=== PATIENT | female | born 1945 | race Caucasian/White ===

== ENCOUNTER 2022-09-22 13:33 | Outpatient (CLI) | payer MEDICARE, SELFPAY ==
[2022-09-22 19:17] LABS: Basophils Absolute Auto 0.1 K/mm3 (0.0-0.1); Basophils Percent Auto 0.8 % (0.2-1.2); Eosinophils Absolute Auto 0.2 K/mm3 (0-0.3); Eosinophils Percent Auto 2.7 % (0-4.4); Hematocrit 40.2 % (37.0-47.0); Immature Granulocyte Absolute 0.02 K/mm3 (0.00-0.031); Immature Granulocyte Percent A 0.2 % (0-0.5); Lymphocytes Absolute Auto 3.26 K/mm3 (0.9-3.2); Lymphocytes Percent Auto 38.9 % (18.3-44.2); Mean Corpuscular HGB Conc 32.3 g/dl (32-36); Mean Corpuscular Hemoglobin 30.4 pg (26-34); Mean Corpuscular Volume 94.1 fl (80-100); Mean Platelet Volume 10.6 fl (7.4-10.4); Monocytes Absolute Auto 0.4 K/mm3 (0.1-0.6); Monocytes Percent Auto 4.9 % (2.6-8.5); Neutrophils Absolute Auto 4.4 K/mm3 (1.3-6.7); Neutrophils Percent Auto 52.5 % (45.5-73.1); Platelet Count Result 255 k/mm3 (150-375); Red Blood Count 4.27 M/mm3 (4.2-5.4); Red Cell Distribution Width 12.5 % (11.5-14.5); White Blood Count 8.4 K/mm3 (4.5-10.0)
[2022-09-22 19:45] LABS: Alanine Aminotransferase 25 U/L (6-35); Albumin Level 4.2 g/dL (3.5-5.1); Alkaline Phosphatase 77 U/L (38-126); Anion Gap 5 mmol/L (8-16); Aspartate Amino Transferase 39 U/L (14-36); Bilirubin,Total 0.4 mg/dL (0.2-1.3); Blood Urea Nitrogen 17 mg/dL (7-17); Calcium 9.5 mg/dL (8.4-10.2); Carbon Dioxide 32 mmol/L (22-30); Chloride 98 mmol/L (98-107); Estimated Glomerular Filt Rate > 60; Glucose 280 mg/dL (65-110); Sodium 135 mmol/L (137-145)
[2022-09-22 20:18] LABS: Vitamin D 25 Hydroxy 27.7 ng/mL
[2022-09-22 22:21] LABS: Hemoglobin A1C 8.2 % (<5.7)
== END 2022-09-22 13:34 | disposition home or self-care (01) ==
LOC: ANHGOSHLAB 13:35
PROVIDERS: PCP Internal Medicine; Visit Provider Nurse Practitioner
DX: E07.9 Disorder of thyroid, unspecified (principal); E11.9 Type 2 diabetes mellitus without complications; E55.9 Vitamin D deficiency, unspecified; I10 Essential (primary) hypertension
CPT/HCPCS: 36415; 80053; 82306; 83036; 84443; 85025

== ENCOUNTER 2022-09-22 13:47 | Outpatient (CLI) | payer MEDICARE, SELFPAY ==
--- NOTE | ~2022-09-22 | XR_ITS ---
EXAMINATION: XR_CERV2-3V_CR DATE: 09/22/2022 14:14 INDICATION: Throat pain. TECHNIQUE: 3 views of cervical spine on 4 radiographs were obtained. COMPARISON: Neck CT 05/28/2018 FINDINGS: There is 2 mm retrolisthesis of C5 on C6. Vertebral body heights are normal. There is mildl y decreased disc height at C4-C5 and severely decreased disc height at C5-C6 and C6-C7. There is mult ilevel facet joint osteoarthritis, severe at many levels. There is mild central canal stenosis at C5- C6 and C6-C7. No prevertebral soft tissue swelling. IMPRESSION: 1. Severe cervical spondylosis. Reviewed, dictated and finalized at location A.
== END 2022-09-22 13:48 ==
PROVIDERS: PCP Internal Medicine; Visit Provider Nurse Practitioner
DX: R07.0 Pain in throat (principal); M47.892 Other spondylosis, cervical region
CPT/HCPCS: 72040

== ENCOUNTER 2022-09-30 11:41 | Outpatient (CLI) | payer MEDICARE, SELFPAY ==
[2022-09-30 12:19] LABS: Cholesterol 182 mg/dL (0-200); HDL Direct 45 mg/dL; Triglycerides 286 mg/dL (<150)
[2022-09-30 12:29] LABS: LDL Cholesterol Direct 83 mg/dL
== END 2022-09-30 11:42 | disposition home or self-care (01) ==
PROVIDERS: PCP Internal Medicine; Visit Provider Nurse Practitioner
DX: E07.9 Disorder of thyroid, unspecified (principal); E11.9 Type 2 diabetes mellitus without complications; E55.9 Vitamin D deficiency, unspecified; I10 Essential (primary) hypertension
CPT/HCPCS: 36415; 80061

== ENCOUNTER 2022-10-18 13:51 | Outpatient (CLI) | payer MEDICARE, SELFPAY ==
--- NOTE | ~2022-10-18 | MR_ITS ---
EXAMINATION: MR cervical spine wo con DATE: 10/18/2022 14:56 INDICATION: Neck pain. TECHNIQUE: Magnetic resonance imaging (MRI) of the cervical spine was performed without intravenous c ontrast. Sequences included sagittal T2-weighted FSE, sagittal T2-weighted FS FSE, sagittal T1-weight ed FSE, axial MERGE, and axial T2-weighted FSE. COMPARISON: None FINDINGS: There is 2 mm anterolisthesis of C4 on C5 and 2 mm retrolisthesis of C5 on C6 and C6 on C7. Vertebral body heights are normal. There is severely decreased disc height at C5-C6 and C6-C7. The s emi cord signal intensity is normal. The following disc levels are specifically discussed: C2-C3: The disc does not extend beyond the endplate margin. There is no uncovertebral joint osteoarth ritis. There is severe bilateral facet joint osteoarthritis. There is mild bilateral neural foraminal stenosis. There is no central canal stenosis. C3-C4: There is a central protrusion. There is severe bilateral uncovertebral joint osteoarthritis. T here is severe bilateral facet joint osteoarthritis. There is moderate bilateral neural foraminal juice nosis. There is no central canal stenosis. C4-C5: The disc does not extend beyond the endplate margin. There is moderate left uncovertebral join t osteoarthritis. There is severe bilateral facet joint osteoarthritis. There is mild left neural for aminal stenosis. There is no central canal stenosis. C5-C6: The disc is bulging. There is severe bilateral uncovertebral joint osteoarthritis. There is se cuco right and mild left facet joint osteoarthritis. There is moderate bilateral neural foraminal juice nosis. There is mild central canal stenosis. C6-C7: The disc is bulging. There is severe bilateral uncovertebral joint osteoarthritis. There is mo derate bilateral facet joint osteoarthritis. There is moderate bilateral neural foraminal stenosis. T here is mild central canal stenosis. C7-T1: The disc does not extend beyond the endplate margin. There is no uncovertebral joint osteoarth ritis. There is severe bilateral facet joint osteoarthritis. There is mild bilateral neural foraminal stenosis. There is no central canal stenosis. IMPRESSION: 1. Severe cervical spondylosis. Reviewed, dictated and finalized at location L.
--- NOTE | ~2022-10-18 | CT_ITS ---
EXAMINATION: CT soft tissue neck w con DATE: 10/18/2022 14:28 INDICATION: Sore throat. Hoarseness. TECHNIQUE: Computed tomography (CT) of the neck was performed with 75 mL Omnipaque-350 intravenous co ntrast. Automated exposure control and iterative reconstruction technique were employed. The dose-sky gth product was 666.62 mGy-cm. COMPARISON: Neck CT 05/28/18 FINDINGS: There are no pathologically enlarged lymph nodes. The pharynx and larynx are normal. There is no visible plaque in the proximal internal carotid arteries. There is 0% stenosis of the proximal internal carotid arteries relative to normal distal artery lumen diameters. There is severe cervical spondylosis. IMPRESSION: 1. No etiology for the patient's symptoms. Reviewed, dictated and finalized at location L.
== END 2022-10-18 13:52 | disposition home or self-care (01) ==
PROVIDERS: PCP Internal Medicine; Referring Provider Otolaryngology; Visit Provider Nurse Practitioner
DX: R13.10 Dysphagia, unspecified (principal); R07.0 Pain in throat; G89.29 Other chronic pain; M47.892 Other spondylosis, cervical region
CPT/HCPCS: 70491; 72141; Q9967

== ENCOUNTER 2022-11-11 12:33 | Outpatient (CLI) | payer MEDICARE, SELFPAY ==
--- NOTE | ~2022-11-11 | XR_ITS ---
XR knee RT 3V 11/11/2022 12:55 Indication: Right knee pain Procedure: 3 views right knee Comparison: No prior studies for comparison. Findings: There is mild-moderate tricompartment osteoarthritis of the right knee. No fracture, sublux ation or dislocation. No joint effusion. 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 Reviewed, dictated and finalized at location [] Impression: 1: Mild-moderate tricompartment osteoarthritis of the right knee.
== END 2022-11-11 12:34 | disposition home or self-care (01) ==
PROVIDERS: PCP Internal Medicine; Visit Provider Nurse Practitioner
DX: M17.11 Unilateral primary osteoarthritis, right knee (principal)
CPT/HCPCS: 73562

== ENCOUNTER 2023-03-01 11:36 | Outpatient (CLI) | payer MEDICARE, SELFPAY ==
[2023-03-01 12:24] LABS: Anion Gap 5 mmol/L (8-16); Blood Urea Nitrogen 16 mg/dL (7-17); Calcium 9.6 mg/dL (8.4-10.2); Carbon Dioxide 32 mmol/L (22-30); Chloride 98 mmol/L (98-107); Estimated Glomerular Filt Rate > 60; Glucose 182 mg/dL (65-110); Potassium 4.2 mmol/L (3.4-5.0); Sodium 135 mmol/L (137-145)
[2023-03-01 12:26] LABS: Hemoglobin A1C 8.6 % (<5.7)
== END 2023-03-01 11:37 | disposition home or self-care (01) ==
PROVIDERS: PCP Internal Medicine; Visit Provider Nurse Practitioner
DX: E11.9 Type 2 diabetes mellitus without complications (principal)
CPT/HCPCS: 36415; 80048; 83036

== ENCOUNTER 2023-10-06 09:57 | Outpatient (CLI) | payer MEDICARE, SELFPAY ==
--- NOTE | ~2023-10-06 | XR_ITS ---
Clinical Indication: Chest pain PA and lateral views of the chest: Comparison: 11/26/2018 Findings: The lungs are clear, without evidence of focal consolidation or pleural effusion. Cardiome diastinal silhouette is within normal limits. Bones and soft tissues are unremarkable. Impression: Normal chest. Reviewed, dictated and finalized at location . Impression: Normal chest.
[2023-10-06 10:47] LABS: Basophils Absolute Auto 0.1 K/mm3 (0.0-0.1); Basophils Percent Auto 0.9 % (0.2-1.2); Eosinophils Absolute Auto 0.3 K/mm3 (0-0.3); Eosinophils Percent Auto 4.2 % (0-4.4); Hematocrit 42.4 % (37.0-47.0); Hemoglobin 13.7 g/dL (12.0-15.0); Immature Granulocyte Absolute 0.02 K/mm3 (0.00-0.031); Immature Granulocyte Percent A 0.3 % (0-0.5); Lymphocytes Absolute Auto 3.03 K/mm3 (0.9-3.2); Lymphocytes Percent Auto 38.5 % (18.3-44.2); Mean Corpuscular HGB Conc 32.3 g/dl (32-36); Mean Corpuscular Hemoglobin 29.7 pg (26-34); Mean Platelet Volume 10.2 fl (7.4-10.4); Monocytes Absolute Auto 0.5 K/mm3 (0.1-0.6); Monocytes Percent Auto 6.1 % (2.6-8.5); Neutrophils Absolute Auto 3.9 K/mm3 (1.3-6.7); Platelet Count Result 247 k/mm3 (150-375); Red Blood Count 4.61 M/mm3 (4.2-5.4); Red Cell Distribution Width 12.2 % (11.5-14.5); White Blood Count 7.9 K/mm3 (4.5-10.0)
[2023-10-06 10:56] LABS: Alanine Aminotransferase 22 U/L (6-35); Albumin Level 4.5 g/dL (3.5-5.1); Alkaline Phosphatase 65 U/L (38-126); Anion Gap 9 mmol/L (4-12); Aspartate Amino Transferase 24 U/L (14-36); Bilirubin,Total 0.6 mg/dL (0.2-1.3); Blood Urea Nitrogen 15 mg/dL (7-17); Calcium 9.8 mg/dL (8.4-10.2); Carbon Dioxide 27 mmol/L (22-30); Chloride 104 mmol/L (98-107); Cholesterol 158 mg/dL (0-200); Estimated Glomerular Filt Rate > 60; Glucose 169 mg/dL (65-110); HDL Direct 48 mg/dL; Potassium 3.9 mmol/L (3.4-5.0); Sodium 140 mmol/L (137-145); Triglycerides 193 mg/dL (<150)
[2023-10-06 11:09] LABS: LDL Cholesterol Direct 80 mg/dL
[2023-10-06 11:34] LABS: Vitamin D 25 Hydroxy 35.5 ng/mL
--- NOTE | 2023-10-06 11:36 | ECG_ITS ---
SEE SCANNED COPY FOR CONFIRMED REPORT MTDD
== END 2023-10-06 09:58 | disposition home or self-care (01) ==
PROVIDERS: PCP Nurse Practitioner; Visit Provider Internal Medicine
DX: E11.59 Type 2 diabetes mellitus with other circulatory complications (principal); R07.9 Chest pain, unspecified; E07.9 Disorder of thyroid, unspecified; E55.9 Vitamin D deficiency, unspecified; I15.2 Hypertension secondary to endocrine disorders; Z90.89 Acquired absence of other organs
CPT/HCPCS: 36415; 71046; 80053; 80061; 82306; 83036; 84443; 85025; 93005

== ENCOUNTER 2023-12-27 08:51 | Outpatient (CLI) | payer MEDICARE, SELFPAY ==
--- NOTE | ~2023-12-27 | NM_ITS ---
EXAMINATION: NM molly stress w perfusion DATE: 12/27/2023 11:48 INDICATION: Chest pain. TECHNIQUE: Rest images were obtained following intravenous administration of 9.5 mCi Tc99m tetrofosmi n (Myoview). The patient was infused intravenously with Lexiscan (regadenoson). Then, 28.4 mCi Tc99m tetrofosmin (Myoview) was administered intravenously, and stress images were obtained. Data was recon structed into short axis and horizontal and vertical long axis SPECT images. Gated SPECT images were also obtained. COMPARISON: Myocardial perfusion imaging 06/14/2018 FINDINGS: There is no definite reversible or fixed perfusion abnormality to suggest ischemia or infar ction. There is no segmental wall motion abnormality. Left ventricular ejection fraction measures > 70%. IMPRESSION: 1. No definite ischemia or infarct. 2. Normal left ventricular ejection fraction measuring >70%. Reviewed, dictated and finalized at location A.
--- NOTE | 2023-12-27 09:26 | EST_ITS ---
Patient Info Name: Nicolle Kovacs Age: 78 years : 1945 Gender: Female Ht: 63 in Wt: 170 lbs BSA: 1.88 m2 HR: 60 bpm BP: 150 / 84 mmHg Exam Date: 12/27/2023 10:53 AM Exam Location: Echo Lab Patient Status: Outpatient Admit Date: 12/27/2023 Staff Ordering Physician: Hola Johnston DO Attending Provider: Hola Johnston DO Exercise Technologist: Selma Segura CT Exercise Physician: Sumit Pizano DO Exam Type: CA stress molly w NM Study Info A regadenoson stress test was performed. Summary 1. 1. Negative lexiscan stress test for ischemic ST changes by ECG criteria. 2. 2. Stable hemodynamics throughout the test. 3. 3. Nuclear scan to follow and will be reported separately. Please correlate with it. 4. 4. Patient informed of the above results. Protocol: Lexiscan Stress ECG Details Stage: REST Duration (min): 2 min : 9 sec HR (bpm): 61 SBP (mmHg): 150 DBP (mmHg): 84 Stage: REST Duration (min): 6 min : 13 sec HR (bpm): 64 SBP (mmHg): 150 DBP (mmHg): 84 Stage: STAGE 1 Duration (min): 1 min : 0 sec HR (bpm): 80 SBP (mmHg): 165 DBP (mmHg): 58 Stage: RECOVERY Duration (min): 1 min : 0 sec HR (bpm): 91 SBP (mmHg): 165 DBP (mmHg): 58 Stage: RECOVERY Duration (min): 2 min : 0 sec HR (bpm): 92 SBP (mmHg): 165 DBP (mmHg): 58 Stage: RECOVERY Duration (min): 3 min : 0 sec HR (bpm): 90 SBP (mmHg): 202 DBP (mmHg): 67 Stage: RECOVERY Duration (min): 4 min : 0 sec HR (bpm): 88 SBP (mmHg): 202 DBP (mmHg): 67 Stage: RECOVERY Duration (min): 4 min : 52 sec HR (bpm): 91 SBP (mmHg): 190 DBP (mmHg): 81 Rest HR: 64 bpm Peak HR: 93 bpm Rest Sys BP: 150 mmHg Peak Sys BP: 202 mmHg Max Pred HR: 140 bpm % Max Pred HR: 66 % Target HR: 119 bpm Max RPP: 18,786 bpm*mmHg Termination Reason: Completed protocol Cardiac Symptoms: Shortness of breath Total Time: 1 min : 0 sec Rest Mae BP: 84 mmHg Peak Mae BP: 67 mmHg Total Dose: 0.4 mg Resting ECG Sinus rhythm, RBBB, LAFB. Stress ECG No ST changes. Arrhythmias None. Report Signatures
== END 2023-12-27 08:52 | disposition home or self-care (01) ==
PROVIDERS: PCP Internal Medicine; Visit Provider Internal Medicine
DX: R94.31 Abnormal electrocardiogram [ECG] [EKG] (principal)
CPT/HCPCS: 78452; 93017; A9502; J2785

== ENCOUNTER 2024-02-08 14:49 | Outpatient (CLI) | payer MEDICARE, SELFPAY ==
[2024-02-08 21:41] LABS: Hemoglobin A1C 7.4 % (<5.7)
== END 2024-02-08 14:50 | disposition home or self-care (01) ==
LOC: ANHGOSHLAB 14:51
PROVIDERS: PCP Nurse Practitioner; Visit Provider Nurse Practitioner
DX: E11.59 Type 2 diabetes mellitus with other circulatory complications (principal); I15.2 Hypertension secondary to endocrine disorders
CPT/HCPCS: 36415; 83036

== ENCOUNTER 2024-06-13 13:39 | Outpatient (CLI) | payer MEDICARE, SELFPAY ==
[2024-06-13 14:35] LABS: Basophils Absolute Auto 0.1 K/mm3 (0.0-0.1); Basophils Percent Auto 0.7 % (0.2-1.2); Eosinophils Absolute Auto 0.2 K/mm3 (0-0.3); Hematocrit 36.5 % (37.0-47.0); Hemoglobin 11.7 g/dL (12.0-15.0); Immature Granulocyte Absolute 0.01 K/mm3 (0.00-0.031); Immature Granulocyte Percent A 0.1 % (0-0.5); Lymphocytes Absolute Auto 4.19 K/mm3 (0.9-3.2); Lymphocytes Percent Auto 49.1 % (18.3-44.2); Mean Corpuscular HGB Conc 32.1 g/dl (32-36); Mean Corpuscular Hemoglobin 30.2 pg (26-34); Mean Corpuscular Volume 94.3 fl (80-100); Mean Platelet Volume 10.8 fl (7.4-10.4); Monocytes Absolute Auto 0.6 K/mm3 (0.1-0.6); Monocytes Percent Auto 6.7 % (2.6-8.5); Neutrophils Absolute Auto 3.5 K/mm3 (1.3-6.7); Neutrophils Percent Auto 41.4 % (45.5-73.1); Platelet Count Result 234 k/mm3 (150-375); Red Blood Count 3.87 M/mm3 (4.2-5.4); Red Cell Distribution Width 12.3 % (11.5-14.5); White Blood Count 8.5 K/mm3 (4.5-10.0)
--- OUTSIDE RECORDS SUMMARY | 2024-06-14 05:16 | XMS_ITS | Patient Health Summary ---
Author Organization [facility] Address [address] [place] [address] Care Team Providers Care Crop Or Grain Farmworker Name Role Phone Hola Johnston DO Primary Care Provider Note from [facility],non-owned Affiliates and Associated Physician Practices is amultiple site organization consisting of ambulatory clinics and hospital sitesin [place], [place], [place] and [place]. This disclosure is being madepursuant to the Care Everywhere program and may not contain all information available regarding this patient. Last updated 18.[facility] Allergies * Tramadol(Nausea and/or Vomiting) -Low Criticality Medications * Be aware that medications may not be up to date on this document. Alwaysverify current medications with the patient. * cyclobenzaprine (Flexeril) 5 MG tablet(Started 07/21/2023) Take 1 (one) tablet by mouth 2 times daily * irbesartan (Avapro) 75 MG tablet(Started 07/21/2023) Take 1 (one) tablet by mouth once daily * Synthroid 75 MCG tablet(Started 10/05/2023) Take 1 (one) tablet by mouth once daily * lovastatin (Mevacor) 40 MG tablet(Started 07/21/2023) Take 1 (one) tablet by mouth at bedtime * metFORMIN ER 24hr (Glucophage XR) 500 MG tablet(Started 10/05/2023) Take 1 (one) tablet by mouth daily with dinner * metoprolol tartrate IR (Lopressor) 50 MG tablet(Started 07/21/2023) Take 1 (one) tablet by mouth 2 times daily * pantoprazole EC (Protonix) 40 MG tablet(Started 07/21/2023) Take 1 (one) tablet by mouth once daily * acetaminophen (Tylenol) 325 MG tablet(Started 11/03/2023) Take 2 (two) tablets by mouth every 6 hours Maximum allowable Acetaminophen amount = 4 Grams (4000 mg) / 24 hours. * busPIRone (Buspar) 5 MG tablet(Started 10/24/2023) Take 1 (one) tablet by mouth 3 times daily * gabapentin (Neurontin) 300 MG capsule(Started 11/02/2023) Take 1 (one) capsule by mouth at bedtime Active Problems Problem Noted Date Diagnosed Date Vocal cord paralysis 11/03/2023 Immunizations * INFLUENZA VACCINE, HIGH-DOSE, QUADR. (FLUZONE HIGH-DOSE QUADRIVALENT; 65Y+), 0.7 ML (HD-IIV4)(Given 02/01/2019, 02/28/2018) * PNEUMOCOCCAL PPSV23(Given 02/01/2019) * Pneumococcal Pcv13 Conj(Given 02/28/2018) * Zoster Hzv Vacc Recombinant Inj Im(Given 12/14/2021) Social History Tobacco Use Types Packs/Day Years Used Date Smoking Tobacco: Never Passive Smoke Exposure: Never Smokeless Tobacco: Never Tobacco Cessation:Counseling Given: Not Answered Alcohol Use Standard Drinks/Week Comments Never 0 (1 standard drink = 0.6 oz pur e alcohol) AUDIT-C Answer Date Recorded Q1: How often do you have a drink containing alc ohol? Never 11/03/2023 Average Number of Drinks Not on file 024 Frequency of Binge Drinking Not on file 10/20 Sex and Gender Information Value Date Recorded Sex Assigned at Not on file Gender Identity Not on file Sexual Orientation Not on file Last Filed Vital Signs Vital Sign Reading Time Taken Comments Blood Pressure 132/63 11/04/2023 12:07 PM CDT Pulse 64 11/04/2023 12:07 PM CDT Temperature 36.4 ??C (97.5 ??F) 11/04/2023 1 2:07 PM CDT Respiratory Rate 18 11/04/2023 12:0 7 PM CDT Oxygen Saturation 91% 11/04/2023 12: 07 PM CDT Inhaled Oxygen Concentration - - Weight 78.4 kg (172 lb 12.8 oz) 11/03/2023 8:52 AM CDT Height 152.4 cm (5') 11/03/2023 8:52 AM CDT Body Mass Index 33.75 11/03/2023 8:52 AM CDT Medical Devices Implanted Type Area New Car Get Ready Mechanic Device Identifier Shelf Expiration Date Model / Serial / Lot Patch Cv Thk.4mm 9x2cm jay [facility] [id number] Implanted:Qty: 1 on 11/03/2023 by Sonu Morales MD at [facility] [employer] 04/14/2028 [id number] / [id number] / Procedures * GLUCOSE - POINT OF CARE(Performed 11/04/2023) * BASIC METABOLIC PANEL (CALCIUM TOTAL)(Performed 11/04/2023) * GLUCOSE - POINT OF CARE(Performed 11/04/2023) * GLUCOSE - POINT OF CARE(Performed 11/03/2023) * GLUCOSE - POINT OF CARE(Performed 11/03/2023) * FL LARYNX SURG PROC UNLISTED(Performed 11/03/2023) Performed for Muscle tension dysphonia * GLUCOSE - POINT OF CARE(Performed 11/03/2023) * FL LARYNGOSCOPY,FLEX FIBER,DIAGNOSTIC(Performed 10/09/2023) Performed for Muscle tension dysphonia Results * (ABNORMAL) GLUCOSE - POINT OF CARE (11/04/2023 12:09 PM CDT) Only the most recent of5 resultswithin the time period is included. [facility] Glucose WB/POC 223(H) 70 - 115 mg/dL 11/04/2023 12:23 PM CDT [facility] Specimen Type Cap Fingerstick 2023 12:23 PM CDT [facility] Blood BLOOD SPECIMEN / Unknown 11/04/2023 12:09 PM CDT 11/04/2023 12:23 PM CDT Sonu Morales MD LAB - POINT OF RI RE ORDERABLES [address] [address], [facility] [phone] * (ABNORMAL) BASIC METABOLIC PANEL (CALCIUM TOTAL) (11/04/2023 11:09 AM CDT) [facility] BUN 12 7 - 26 mg/dL 11/04/2023 11:49 AM [facility] Creatinine 0.72 0.56 - 0.96 mg/dL 11/04/2023 11:49 AM [facility] Sodium 139 136 - 145 mmol/L 11/04/2023 11:49 AM [facility] Potassium 3.9 3.5 - 4.5 mmol/L 11/04/2023 11:49 AM [facility] Chloride 102 98 - 107 mmol/L 11/04/2023 11:49 AM [facility] CO2 29 22 - 29 mmol/L 11/04/2023 11:49 AM [facility] Glucose 275(H) 70 - 115 mg/dL 11/04/2023 11:49 AM [facility] Calcium 9.4 8.4 - 10.2 mg/dL 11/04/2023 11:49 AM [facility] Anion Gap 8 6 - 16 11/04/2023 11:49 AM [facility] BUN/Creatinine Ratio 17 7 - 23 11/04/2023 11:49 AM [facility] Osmolality Calculated 298(H) 275 - 295 mOsm/kg 11/04/2023 11:49 AM [facility] eGFR by CKD-EPI 84(L) >=90 mL/min/1.7 3 m2 11/04/2023 11:49 AM [facility] Blood BLOOD SPECIMEN / Unknown Venipuncture / Unknown 11/04/2023 11:09 AM CDT 11/04/2023 11:25 AM CDT Sonu Morales MD LAB - CHEMISTRY O RDERABLES [facility] [address] [place] [address], [facility] [phone] * FL LARYNGOSCOPY,FLEX FIBER,DIAGNOSTIC (10/09/2023 2:49 PM CDT) Narrative Sonu Morales MD - 10/09/2023 2:49 PM CDT Sonu Morales MD ? 10/11/2023 ??9:05 AM Procedure Note Endoscopy Type: ??Laryngoscopy with Stroboscopy 23341 Endoscope: Flexible 4mm laryngocope Anesthesia: Lidocaine 2% and Neosynephrine 1/2% (nasal) Procedure Details: The patient was sitting upright in a chair with the head in a slightly anterior sniffing position. The topical anesthesia was administered and then adequate time was allowed ??for an anesthetic effect. The endoscope was passed thru the nasal cavity with the tongue retracted anteriorly. The tip of the endoscope was positioned in the oropharynx which allowed a complete view of the base of tongue, vallecula, pyriform recesses, epiglottis, bilateral true and false vocal folds, the interarytenoid and post cricoid region, and the immediate subglottis. Findings: Subtle paresis of the right vocal cord, normal movement of the left true vocal fold. No epithelial or subepithelial lesions of the larynx. There is complete glottic closure. Mucosal wave could not be fully evaluated due to supraglottic hyperfunction, but small visible portion visible posteriorly appeared normal. No masses or lesions of the visible supraglottis and subglottis. mild interarytenoid erythema or edema. moderate supraglottic compression. mild laryngeal secretions. No pooling of secretions in the piriform sinuses. ??No lesions of the nasal cavity, nasopharynx, oropharynx, hypopharynx, and post-cricoid regions were noted. Condition: Stable. ??Patient tolerated procedure well. Complications: None Dr. Morales was present for the entirety of the procedure. Sonu Morales MD PROCEDURE/MINOR S URGICAL ORDERABLES Care Teams Crop Or Grain Farmworker Relationship Specialty Start Date End Date Hola Johnston DO [address] [place] [address] PCP - General Internal Medicine 10/20/23
--- OUTSIDE RECORDS SUMMARY | 2024-06-14 05:16 | XMS_ITS | Referral Summary ---
Author Organization [facility] Address [address] [place] [address] Care Team Providers Care Frit Maker Name Role Phone Hola Johnston DO Primary Care Provider [phone] Source Comments [facility],non-owned Affiliates and Associated Physician Practices is amultiple site organization consisting of ambulatory clinics and hospital sitesin [place], [place], [place] and [place]. This disclosure is being madepursuant to the Care Everywhere program and may not contain all information available regarding this patient. Last updated 18.[facility] Encounters Date Type Department Care Team Description 03/28/2024 Travel from Last 3 Months Allergies Active Allergy Reactions Criticality Noted Date Comments Tramadol Nausea and/or Vomiting Low 01/06/2022 Medications * Be aware that medications may not be up to date on this document. Alwaysverify current medications with the patient. Medication Sig Dispensed Refills Start Date End Date Status cyclobenzaprine (Flexeril) 5 MG tablet Take 1 (one) tablet by mouth 2 times daily 07/21/2023 Active irbesartan (Avapro) 75 MG tablet Take 1 (one) tablet by mouth once daily 07/21/2023 Active Synthroid 75 MCG tablet Take 1 (one) tablet by mouth once daily 10/05/2023 Active lovastatin (Mevacor) 40 MG tablet Take 1 (one) tablet by mouth at bedtime 07/21/2023 Active metFORMIN ER 24hr (Glucophage XR) 500 MG tablet Take 1 (one) tablet by mouth daily with dinner 10/05/2023 Active metoprolol tartrate IR (Lopressor) 50 MG tablet Take 1 (one) tablet by mouth 2 times daily 07/21/2023 Active pantoprazole EC (Protonix) 40 MG tablet Take 1 (one) tablet by mouth once daily 07/21/2023 Active acetaminophen (Tylenol) 325 MG tablet Take 2 (two) tablets by mouth every 6 hours Maximum allowable Acetaminophen amount = 4 Grams (4000 mg) / 24 hours. 11/03/2023 Active busPIRone (Buspar) 5 MG tablet Take 1 (one) tablet by mouth 3 times daily 10/24/2023 Active gabapentin (Neurontin) 300 MG capsule Take 1 (one) capsule by mouth at bedtime 11/02/2023 Active Active Problems Problem Noted Date Diagnosed Date Vocal cord paralysis 11/03/2023 Immunizations Name Administration Dates Next Due INFLUENZA VACCINE, HIGH-DOSE , QUADR. (FLUZONE HIGH-DOSE QUADRIVALENT; 65Y+), 0.7 ML (HD-IIV4) 02/01/2019,02/28/2018 PNEUMOCOCCAL PPSV23 02/01/2019 Pneumococcal Pcv13 Conj 02/28/2018 Zoster Hzv Vacc Recombinant Inj Im 12/14/2021 Social History Tobacco Use Types Packs/Day Years [...] Mass Index 33.75 11/03/2023 8:52 AM CDT Plan of Treatment Not on file Medical Devices Implanted Type Area Head Wrestling Coach Device Identifier Shelf Expiration Date Model / Serial / Lot Patch Cv Thk.4mm 9x2cm Grtx [facility] - [id number] Implanted:Qty: 1 on 11/03/2023 by Sonu Morales MD at [facility] [employer] 04/14/2028 [id number] / [id number] / Advance Directives * Full Code (Latest Code Status on File) Date Activated Date Inactivated Comments 11/03/2023 3:02 PM 11/04/2023 3:12 PM Care Teams Frit Maker Relationship Specialty Start Date End Date Hola Johnston DO [address] [address] PCP - General Internal Medicine 10/20/23
--- OUTSIDE RECORDS SUMMARY | 2024-06-14 05:16 | XMS_ITS | Encounter Summary ---
Author Organization [facility] Address [address] [place] [address] Care Team Providers Care Marine Firefighter Name Role Phone Hola Johnston DO Primary Care Provider [phone] Encounter Details Date Type Department Care Team (Late st Contact Info) Description 01/12/2024 Telephone [facility] - [facility] [address] [place] [address] Annie Ramírez, MANAGER GAMING [address] [place] [address] [place] [address] Social History Tobacco Use Types Packs/Day Years Used Date Smoking Tobacco: Never Passive Smoke Exposure: Never Smokeless Tobacco: Never Alcohol Use Standard Drinks/Week Comments Never 0 [...] on file Sexual Orientation Not on file documented as of this encounter Plan of Treatment Not on file documented as of this encounter Visit Diagnoses Not on filedocumented in this encounter Care Teams Marine Firefighter Relationship Specialty Start Date End Date Hola Johnston DO [address] [place] [address] PCP - General Internal Medicine 10/20/23 documented as of this encounter
--- OUTSIDE RECORDS SUMMARY | 2024-06-14 05:16 | XMS_ITS | CONTINUITY OF CARE DOCUMENT ---
Author Name tracie hodges Address Unknown Organization [facility] Address [address] [place] [address] Phone [phone] Care Team Providers Care Garment Sewing Machine Operator Name Role Phone tracie hodges Unavailable Unavailable
--- OUTSIDE RECORDS SUMMARY | 2024-06-14 05:16 | XMS_ITS | Clinical Summary ---
Author Organization [facility] Address [address] [place] [id number] Care Team Providers Care General Worker Name Role Phone Yessy Alvarez MD Primary Care Provider + Allergies Active Allergy Reactions Criticality Noted Date Comments Tramadol Nausea & Vomiting Low 01/06/2022 Medications metFORMIN XR (GLUCOPHAGE XR) 500 mg 24 hr tabletIndicati ons:type 2 diabetes mellitus 1,000 mg 2 (two) times a day 7 Active metoprolol (LOPRESSOR) 50 mg tabletIndicati ons:hypertensi on Take 50 mg by mouth 2 (two) times a day 9 Active lovastatin (MEVACOR) 40 mg tabletIndicati ons:hyperlipid emia Take 40 mg by mouth nightly 9 Active irbesartan (AVAPRO) 75 mg tabletIndicati ons:hypertensi on Take 75 mg by mouth every morning 9 Active escitalopram (LEXAPRO) 10 mg tabletIndicati ons:Anxiety with Depression Take 10 mg by mouth every morning 2 Active Accu-Chek Guide test strips strip 2 Active amitriptyline (ELAVIL) 10 mg tabletIndicati ons:anxiety,de pression Take 10 mg by mouth every morning 2 Active docusate (COLACE) liquid 50 mg/5 mLIndications: constipation Take 10 mL (100 mg total) by mouth 2 (two) times a day 600 mL 2 Active oxyCODONE (ROXICODONE) 5 mg immediate release tabletIndicati ons:Pain Take 1 tablet (5 mg total) by mouth every 4 (four) hours as needed for pain (For pain not controlled by acetaminophen (Tylenol) alone) 20 tablet 2 Active calcium carbonate (OS-MARISSA) 1,250 mg (500 mg elemental) tabletIndicati ons:Hypocalcem ia Prevention Take 1 tablet (1,250 mg total) by mouth every 8 (eight) hours for 7 days, THEN 1 tablet (1,250 mg total) every 12 (twelve) hours for 7 days, THEN 1 tablet (1,250 mg total) daily for 7 days. 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 Dysphonia 06/22/2019 Depressive disorder 02/07/2017 Diastolic dysfunction 02/07/2017 Dyslipidemia 02/07/2017 Environmental allergies 02/07/2017 Essential hypertension 02/07/2017 Insomnia 02/07/2017 Type 2 diabetes mellitus without complication (C MS/HCC) 02/07/2017 Immunizations Name Administration Dates Next Due Influenza, Quadrivalent, Hig h Dose, Preservative Free, Intrr 02/02/2021,02/12/2020 Influenza, Trivalent, High D ose, Split, Preservative Free, Intramuscular 02/01/2019,02/28/2018 Pneumococcal Conjugate PCV 13 02/28/2018 Pneumococcal Polysaccharide PPV23 02/01/2019 ZOSTER Recombinant 12/14/2021 Surgical History Surgery Date Site/Laterality Comments HYSTERECTOMY 05/22/1974 - 05/21/1975 ELBOW SURGERY 05/22/1993 - 05/21/1994 Bilateral CHOLECYSTECTOMY 05/22/1996 - 05/21/1997 DILATION AND CURETTAGE OF UTERUS 05/22/1969 - 05/21/1970 x3 HERNIA REPAIR 05/22/1968 - 05/21/1969 KNEE SURGERY 05/22/1969 - 05/21/1970 Right THYROID SURGERY 2017 and 2018 BREAST BIOPSY Left x 2 , unsure of dates Medical History Medical History Date Comments Anxiety Depression Diabetes (HCC) DVT (deep venous thrombosis) (CMS/HCC) (HCC) HTN (hypertension) Thyroid disease Family History Medical History Relation Name Comments Cancer Father colon Hypertension Mother Relation Name Status Comments Father Mother Social History Tobacco Use Types Packs/Day Years Used Date Smoking Tobacco: Never Smokeless Tobacco: Never Alcohol Use Standard Drinks/Week Comments Never 0 (1 standard drink = 0.6 oz pur e alcohol) AUDIT-C Answer Date Recorded Q1: How often do you have a drink containing alc ohol? Never 01/03/2022 Q2: How many drinks containi ng alcohol do you have on a typical day when you are drinking? Patient declined 01/03/2022 Q3: How often do you have si x or more drinks on one occasion? 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 Gender Identity Not on file Sexual Orientation Not on file Obstetrics History Last Filed Vital Signs Vital Sign Reading Time Taken Comments Blood Pressure 169/76 01/07/2022 11:08 PM CDT Pulse 72 01/07/2022 11:08 PM CDT Temperature 36.4 ??C (97.5 ??F) 01/07/2022 11:08 PM C DT Respiratory Rate 19 01/07/2022 11:08 PM CDT Oxygen Saturation 95% 01/07/2022 11:08 PM CDT Inhaled Oxygen Concentration - - Weight 79.4 kg (175 lb) 02/02/2022 10:01 AM CDT Height 160 cm (5' 3 ) 01/03/2022 3:30 PM CDT Body Mass Index 31 01/03/2022 3:30 PM CDT Plan of Treatment Health Maintenance Due Date Last Done Comments Albumin Creatinine Ratio, Urine 1945 Depression Screening 1945 Hemoglobin A1C 1943 Osteoporosis Screening-Bone Density Scan 1943 Dilated Eye Exam 1943 Foot Exam 1943 Lipid Panel 1943 DTaP/Tdap/Td Vaccine (1 - Tdap) 1954 Hepatitis B Screening 1961 Well Visit 65+ 2008 Zoster Vaccine (2 of 2) 02/08/2022 12/14/2021 eGFR 01/06/2023 01/06/2022 Fall Risk Assessment 01/07/2023 01/07/2022 Covid-19 Vaccine (4 - 2023-2 5 season) 2024 11/13/2021, 03/24/2021, 07/30/2020 Influenza Vaccine (#1) 2024 , 02/12/2020, 02/01/2019, Additional history exists Pneumococcal vaccine 65+ Completed 02/01/2019, 02/19 Procedures Procedure Name Priority Date/Time Associated Diagnosis Comments EGFR STAT 01/06/2022 10:53 AM CDT from Last 3 Months or Most Recently Relevant to Health Maintenance Results * (ABNORMAL) eGFR (01/06/2022 10:53 AM CDT) eGFR 89(L) 90 - 130 mL/min/1. 73 m2 [facility] Comment: Interpretive Data Reference Interval Normal ?>/= 90 mL/min/1.73m2 Mildly decreased* ? 60 - 89 mL/min/1.73m2 Mildly to moderately decreased ?45 - 59 mL/min/1.73m2 Moderately to severely decreased ??30 - 44 mL/min/1.73m2 Severely decreased ?15 - 29 mL/min/1.73m2 Kidney Failure ?< 15 ??mL/min/1.73m2 *Relative to young adult level Estimated glomerular filtration rate is determined by the 2020 CKD-EPI equation recommended by the National Kidney Foundation (A Unifying Approach to GFR Estimation: Recommendations of the NKF-ASK Task Force on Reassessing the Inclusion of Race in Diagnosing Kidney Disease, JASN 2020). The CKD-EPI equation should not be used for patients with unstable renal function and has not been validated in children and those over 70. Current interpretive data was last reviewed 2021. Blood 01/06/2022 10:5 3 AM CDT 01/06/2022 10:59 AM CDT us Domingo Zarate MD PhD LAB BLOOD ORDERABLES F inal Result [facility] Department [place] [address] from Last 3 Months or Most Recently Relevant to Health Maintenance Insurance HUMANA CHOICE MEDICARE PPO HUMANA CHOICE MEDICARE PPO Advance Directives For more information, please contact: [phone] * Full Code (Latest Code Status on File) Date Activated Date Inactivated Comments 01/06/2022 2:49 PM 01/08/2022 6:35 PM Care Teams General Worker Relationship Specialty Start Date End Date Yessy Alvarez MD [address] [place] [address] [address] PCP - General Family Medicine 09/28/21
--- OUTSIDE RECORDS SUMMARY | 2024-06-14 05:16 | XMS_ITS | Clinical Summary ---
Author Organization [facility] Address [address] [address] Phone Care Team Providers Care Hunter Skin Diver Name Role Phone Yessy Alvarez MD Primary Care Provider + Allergies Active Allergy Reactions Criticality Noted Date Comments Other Runny Nose 09/25/2017 Pt has seasonal allergies: Runny nose, phlegm Medications escitalopram (LEXAPRO) 10 MG Tablet 09/08/2017 Active metFORMIN (GLUCOPHAGE-XR) 500 MG TABLET SR 24 HR 09/08/2017 Active glimepiride (AMARYL) 4 MG Tablet 09/08/2017 Active lovastatin (MEVACOR) 40 MG Tablet 09/08/2017 Active metoprolol tartrate (LOPRESSOR) 50 MG Tablet Take 50 mg by mouth 2 times daily. 09/08/2017 Active losartan (COZAAR) 25 MG Tablet 07/19/2017 Active traZODone (DESYREL) 50 MG Tablet 09/08/2017 Active famotidine (PEPCID) 20 MG Tablet Take 1 Tab by mouth 2 times daily. 90 Tab 10/02/2017 Active sucralfate (CARAFATE) 1 GM Tablet TAKE 1 TAB BY MOUTH EVERY 6 HOURS. 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 Gender Identity Not on file Sexual Orientation Not on file Last Filed Vital Signs Vital Sign Reading Time Taken Comments Blood Pressure 155/65 10/02/2017 1:58 PM CDT Pulse 58 10/02/2017 1:58 PM CDT Temperature 36 ??C (96.8 ??F) 10/02/2017 1:58 PM CDT Respiratory Rate 16 10/02/2017 1:58 PM CDT Oxygen Saturation 97% 10/02/2017 1:58 PM CDT Inhaled Oxygen Concentration - - Weight 89.8 kg (198 lb) 10/02/2017 12:28 PM CDT Height 160 cm (5' 3 ) 10/02/2017 12:28 PM CDT Body Mass Index 35.07 10/02/2017 12:28 PM CDT Plan of Treatment Health Maintenance Due Date Last Done Comments DEXA Bone Density 1945 Hepatitis C Virus (HCV) Screening 1943 TdaP Immunization 1943 Pneumococcal Immunization (5 0+ years) (1 of 1 - PCV) 1993 Zoster Immunization (1 of 2) 1993 Respiratory Syncytial Virus (RSV) Immunization (Adult) (1 - 1-dose 75+ series) 2018 Influenza Immunization (#1) 2024 03/12/2017 SARS-COV-2 Immunization (1 - season) 2024 Hepatitis B Immunization Aged Out No longer eligible based on patient's age to complete this topic Meningococcal Immunization (ACWY) Aged Out No longer eligible based on patient's age to complete this topic Rotavirus Immunization Aged Out No lo nger eligible based on patient's age to complete this topic Insurance MEDICARE C HUMANA Care Teams Hunter Skin Diver Relationship Specialty Start Date End Date Yessy Alvarez MD [address] [place] [id number] PCP - General Family Medicine 12/31/19
--- OUTSIDE RECORDS SUMMARY | 2024-06-14 05:16 | XMS_ITS | Clinical Summary ---
Author Organization [facility] [employer] Address [address] [place] [address] Care Team Providers Care Environmental Compliance Manager Name Role Phone Hola Johnston DO Primary Care Provider [phone] Source Comments [facility],non-owned Affiliates and Associated Physician Practices is amultiple site organization consisting of ambulatory clinics and hospital sitesin [place], [place], [place] and [place]. This disclosure is being madepursuant to the Care Everywhere program and may not contain all information available regarding this patient. Last updated 18.[facility] [employer] Allergies Active Allergy Reactions Criticality Noted Date [...] Date Diagnosed Date Vocal cord paralysis 11/03/2023 Encounters Date Type Department Care Team Description 03/28/2024 Travel from Last 3 Months Immunizations Name Administration Dates Next Due INFLUENZA VACCINE, HIGH-DOSE , QUADR. (FLUZONE HIGH-DOSE QUADRIVALENT; 65Y+), 0.7 ML (HD-IIV4) 02/01/2019,02/28/2018 PNEUMOCOCCAL PPSV23 02/01/2019 Pneumococcal Pcv13 Conj 02/28/2018 Zoster Hzv Vacc Recombinant Inj Im 12/14/2021 Family History Medical History Relation Name Comments Cancer Father Dementia Father Dementia Mother Hearing Loss - Congenital Mother Hypertension Mother Anxiety Disorder Other self Arthritis - Rheumatoid Other self Bipolar Disorder Other self Diabetes - Type 2 Other self High Cholesterol Other self Hypertension Other self Thyroid Disease Other self Relation Name Status Comments Father Mother Other self Social History Tobacco Use Types Packs/Day Years [...] 11/03/2023 8:52 AM CDT Plan of Treatment Health Maintenance Due Date Last Done Comments BONE DENSITY TESTING 1943 DTAP/TDAP/TD VACCINES (1 - Tdap) 1962 Respiratory Syncytial Virus (RSV) Vaccine Pt: or over 60 yrs (1 - 1-dose 75+ series) 2018 ZOSTER VACCINE (2 of 2) 02/08/2022 12/14/2021 COVID-19 VACCINE ( - 2023-2 5 season) 2024 INFLUENZA VACCINE (#1) 2024 9, 02/28/2018 DEPRESSION SCREENING 05/22/2024 MEDICARE AWV ? CALENDAR YEAR 2024 PNEUMOCOCCAL VACCINE 50+ Completed 019, 02/28/2018 HEPATITIS B VACCINE Aged Out No longe r eligible based on patient's age to complete this topic HIB VACCINE Aged Out No longer eligi ble based on patient's age to complete this topic HPV VACCINE Aged Out No longer eligi ble based on patient's age to complete this topic MENINGOCOCCAL (Group B) VACCINE Aged Out No longer eligible b ased on patient's age to complete this topic MENINGOCOCCAL VACCINE Aged Out No tasia mayda eligible based on patient's age to complete this topic Medical Devices Implanted Type Area Law Enforcement Instructor Device Identifier Shelf Expiration Date Model / Serial / Lot Patch Cv Thk.4mm 9x2cm tx Strl - [id number] Implanted:Qty: 1 on 11/03/2023 by Sonu Morales MD at [facility] [employer] 04/14/2028 [id number] / [id number] / Advance Directives * Full Code (Latest Code Status on File) Date Activated Date Inactivated Comments 11/03/2023 3:02 PM 11/04/2023 3:12 PM Care Teams Environmental Compliance Manager Relationship Specialty Start Date End Date Hola Johnston DO [address] [place] [address] PCP - General Internal Medicine 10/20/23
--- OUTSIDE RECORDS SUMMARY | 2024-06-14 05:16 | XMS_ITS | Referral Summary ---
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 73 m2 [facility] Comment: Interpretive Data Reference Interval Normal ?>/= [...] Inclusion of Race in Diagnosing Kidney Disease, JORGITOSN 2020). The CKD-EPI equation should not be used for patients with unstable renal function and has not been validated in children and those over 70. Current interpretive data was last reviewed 2021. Blood 01/06/2022 10:5 3 AM CDT 01/06/2022 10:59 AM CDT us Domingo Zarate MD PhD LAB BLOOD ORDERABLES F inal Result [facility] Department [place] [address] from Last 3 Months or Most Recently Relevant to Health Maintenance Insurance HUMANA CHOICE MEDICARE PPO HUMANA CHOICE MEDICARE PPO Advance Directives For more information, please contact: [phone] * Full Code (Latest Code Status on File) Date Activated Date Inactivated Comments 01/06/2022 2:49 PM 01/08/2022 6:35 PM Care Teams Career Services Manager Relationship Specialty Start Date End Date Yessy Alvarez MD [address] [place] [id number] PCP - General Family Medicine 09/28/21
== END 2024-06-13 13:40 | disposition home or self-care (01) ==
LOC: ANHLAB 13:40
PROVIDERS: PCP Nurse Practitioner; Visit Provider Nurse Practitioner
DX: D64.9 Anemia, unspecified (principal)
CPT/HCPCS: 36415; 82728; 85025

== ENCOUNTER 2024-08-01 14:07 | Outpatient (RCR) | payer MEDICARE, SELFPAY ==
--- NOTE | 2024-08-01 17:46 | OPREHPOC ---
Outpatient Therapy Plan of Care This is a Multidisciplinary Plan of Care that may contain components documented by all disciplines (PT, OT, and ST.) PT Problem 1 PT Problem #1 Knowledge Deficit PT Goal 1 Goal / Goal Update Hart with HEP Target Visit 4 PT Goal 2 Goal / Goal Update Report no pain greater than 2/10 for 2 consecutive weeks Target Visit 8 PT Problem 2 PT Problem #2 Impaired Strength PT Goal 1 Goal / Goal Update Improve clifford periscapular strength to 4-/5 to improve scapular and Cervical-Thoracic junction posture Target Visit 8 PT Problem 3 PT Problem #3 Impaired Range of Motion PT Goal 1 Goal / Goal Update 1. Improve clifford cervical rotation to 50 degrees with pain free motion PT Problem 4 PT Problem #4 Impaired Functional Mobility PT Goal 1 Goal / Goal Update 20% improvement in Neck Index Target Visit 8
--- NOTE | 2024-08-01 17:46 | PTOPEVAL1 ---
Assessment and note entered by Tyrone Sol, PT Evaluation Information Assessment Status Evaluation ICD-10 Condition Codes (PT) Cervicalgia M54.2,Radiculopathy, cervical M54.13 Onset 2019 Subjective Information Reports that she has had 4 surgeries on the inside of her throat. She reports a lot of neck pain on anterior and posterior neck. Her most recent surgery was October 2023. She has had problems since 2018 when she had her first surgery. She reports that she is having most of her pain between her shoulder blades and down her left arm. 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 Reports that she has dry eye syndrome and very blurry eyes. Reports that she used to sleep on her back but now sleeps in the position. Reports that she has been using a quad cane and does not feel entirely comfortable with it. Would like a 2 wheeled walker transition. Reported Pain Level Pain Score 7: Self Report Assessment PT Clinical Summary Patient presents with signs and symptoms consistent with cervical stenosis and gross spinal OA resulting in poor postural control. Patient will benefit from skilled therapy to address these deficits to reduce pain and improve gross postural control. Plan of Care Interventions Electrical Stimulation,Gait Training,Manual Therapy,Neuro Re-education,Therapeutic Activities, Therapeutic Exercise PT Services Indicated Yes Treatment Frequency and 1-2x/week for 8 visits Duration These treatments will address the objective and functional deficits as defined above. The patient will be advanced safely and appropriately in order for the patient to progress towards his/her prior level of function. Additional exercises will be introduced and as well as a comprehensive home exercise program upon discharge, if needed, ?to ensure carryover of functional gains achieved in the clinic. This treatment plan has been reviewed and agreement upon by the patient.
--- NOTE | 2024-12-13 10:29 | PCPTNOTE ---
PHYSICAL THERAPY DISCHARGE 12-13-24 Wally Elizondo MD Nicolle received PT evaluation on 08-01-24 for the diagnosis of cervical radiculopathy and did not return for any further treatment. Discharge PT services.
== END 2024-10-29 11:40 | disposition home or self-care (01) ==
LOC: ANHPT 14:07
PROVIDERS: PCP Nurse Practitioner; Referring Provider Nurse Practitioner; Visit Provider Anesthesiology Pain Medicine
DX: R49.0 Dysphonia (principal)
CPT/HCPCS: 97110; 97140; 97161

== ENCOUNTER 2024-08-07 10:41 | Outpatient (CLI) | payer MEDICARE, SELFPAY ==
[2024-08-07 12:10] LABS: Basophils Percent Auto 0.6 % (0.2-1.2); Eosinophils Absolute Auto 0.2 K/mm3 (0-0.3); Eosinophils Percent Auto 2.8 % (0-4.4); Hematocrit 39.2 % (37.0-47.0); Hemoglobin 12.6 g/dL (12.0-15.0); Immature Granulocyte Absolute 0.01 K/mm3 (0.00-0.031); Immature Granulocyte Percent A 0.1 % (0-0.5); Immature Reticulocyte Fraction 10.1 % (3.0-15.9); Lymphocytes Absolute Auto 3.29 K/mm3 (0.9-3.2); Lymphocytes Percent Auto 45.6 % (18.3-44.2); Mean Corpuscular HGB Conc 32.1 g/dl (32-36); Mean Corpuscular Hemoglobin 29.9 pg (26-34); Mean Corpuscular Volume 92.9 fl (80-100); Mean Platelet Volume 11.3 fl (7.4-10.4); Monocytes Absolute Auto 0.4 K/mm3 (0.1-0.6); Monocytes Percent Auto 5.3 % (2.6-8.5); Neutrophils Absolute Auto 3.3 K/mm3 (1.3-6.7); Neutrophils Percent Auto 45.6 % (45.5-73.1); Platelet Count Result 208 k/mm3 (150-375); Red Blood Count 4.22 M/mm3 (4.2-5.4); Red Cell Distribution Width 12.5 % (11.5-14.5); Reticulocyte Hemoglobin Conten 33.7 pg (28.2-36.6); Reticulocyte Percent 1.38 % (0.7-4.3); Reticulocytes Absolute 0.06 10^6/uL (0.02-0.10); White Blood Count 7.2 K/mm3 (4.5-10.0)
--- OUTSIDE RECORDS SUMMARY | 2024-08-07 12:20 | XMS_ITS | Encounter Summary ---
Author Organization [facility] Address [address] [place] [address] Care Team Providers Care Cigar Head Pegger Name Role Phone Hola Johnston DO Primary Care Provider [phone] Encounter Details Date Type Department Care Team (Late st Contact Info) Description 01/12/2024 Telephone [facility] [address] [place] [address] Annie Ramírez, FREIGHT FLAGMAN [address] [place] [address] [place] [address] Social History Tobacco Use Types [...] on filedocumented in this encounter Care Teams Cigar Head Pegger Relationship Specialty Start Date End Date Hola Johnston DO [address] [place] [address] PCP - General Internal Medicine 10/20/23 documented as of this encounter
--- OUTSIDE RECORDS SUMMARY | 2024-08-07 12:20 | XMS_ITS | Clinical Summary ---
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 Gender Identity Not on file Sexual Orientation Not on file Last Filed Vital Signs Vital Sign Reading Time Taken Comments Blood Pressure 155/65 10/02/2017 1:58 PM CDT Pulse 58 10/02/2017 1:58 PM CDT Temperature 36 C (96.8 F) 10/02/2017 1:58 PM CDT Respiratory Rate 16 [...] Influenza Immunization (#1) 2024 03/12/2017 SARS-COV-2 Immunization ( - season) 2024 Hepatitis B Immunization Aged Out No longer eligible based on patient's age to complete this topic Meningococcal Immunization (ACWY) Aged Out No longer eligible based on patient's age to complete this topic Rotavirus Immunization Aged Out No lo nger eligible based on patient's age to complete this topic Insurance MEDICARE C HUMANA Care Teams Car Rental Agency Manager Relationship Specialty Start Date End Date Yessy Alvarez MD [address] [place] [id number] PCP - General Family Medicine 12/31/19
--- OUTSIDE RECORDS SUMMARY | 2024-08-07 12:20 | XMS_ITS | Referral Summary ---
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 Dysphonia 06/22/2019 Depressive disorder 02/07/2017 Diastolic dysfunction 02/07/2017 Dyslipidemia 02/07/2017 Environmental allergies 02/07/2017 Essential hypertension 02/07/2017 Insomnia 02/07/2017 Type 2 diabetes mellitus without complication Immunizations Immunization Administration Dates Next Due Influenza, Quadrivalent, Hig [...] on file 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 73 m2 [facility] Comment: Interpretive Data Reference Interval Normal >/= 90 mL/min/1.73m2 Mildly decreased* 60 - 89 mL/min/1.73m2 Mildly to moderately decreased 45 - 59 mL/min/1.73m2 Moderately to severely decreased 30 - 44 mL/min/1.73m2 Severely decreased 15 - 29 mL/min/1.73m2 Kidney Failure < 15 mL/min/1.73m2 *Relative to young adult level Estimated glomerular filtration rate is determined by the 2020 CKD-EPI equation recommended by the National Kidney Foundation (A Unifying Approach to GFR Estimation: Recommendations of the NKF-ASK Task Force on Reassessing the Inclusion of Race in Diagnosing Kidney Disease, JASN 202). The CKD-EPI equation should not be used for patients with unstable renal function and has not been validated in children and those over 70. Current interpretive data was last reviewed 2021. Blood 01/06/2022 10:5 3 AM CDT 01/06/2022 10:59 AM CDT us Domingo Zarate MD PhD LAB BLOOD ORDERABLES F inal Result [facility] Department [place] [address] from Last 3 Months or Most Recently Relevant to Health Maintenance Insurance HUMANA CHOICE MEDICARE PPO HUMANA CHOICE MEDICARE PPO Advance Directives For more information, please contact: [phone] * Full Code (Latest Code Status on File) Date Activated Date Inactivated Comments 01/06/2022 2:49 PM 01/08/2022 6:35 PM Care Teams Dental Intern Relationship Specialty Start Date End Date Yessy Alvarez MD [address] [place] [address] [address] PCP - General Family Medicine 09/28/21
--- OUTSIDE RECORDS SUMMARY | 2024-08-07 12:20 | XMS_ITS | Clinical Summary ---
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 73 m2 [facility] Comment: Interpretive Data Reference Interval Normal >/= [...] LAB BLOOD ORDERABLES F inal Result [facility] Department [place] [address] from Last 3 Months or Most Recently Relevant to Health Maintenance Insurance HUMANA CHOICE MEDICARE PPO HUMANA CHOICE MEDICARE PPO Advance Directives For more information, please contact: [phone] * Full Code (Latest Code Status on File) Date Activated Date Inactivated Comments 01/06/2022 2:49 PM 01/08/2022 6:35 PM Care Teams Channel Cementer Relationship Specialty Start Date End Date Yessy Alvarez MD [address] [place] [address] [address] [place] [address] PCP - General Family Medicine 09/28/21
--- OUTSIDE RECORDS SUMMARY | 2024-08-07 12:20 | XMS_ITS | CONTINUITY OF CARE DOCUMENT ---
Author Name tracie hodges Address Unknown Organization [facility] Address [address] [facility] [address] [place] [address] Phone [phone] Care Team Providers Care Cable Coverer Name Role Phone tracie hodges Unavailable Unavailable
--- OUTSIDE RECORDS SUMMARY | 2024-08-07 12:20 | XMS_ITS | Clinical Summary ---
Author Organization [facility] Address [address] [facility] [place] [address] Care Team Providers Care Sponge Buffer Name Role Phone Hola Johnston DO Primary Care Provider [phone] Source Comments [facility],non-owned Affiliates and Associated Physician Practices is amultiple site organization consisting of ambulatory clinics and hospital sitesin [place], [place], [place] and [place]. This disclosure is being madepursuant to the Care Everywhere program and may not contain all information available regarding this patient. Last updated 18.[facility] Allergies Active Allergy Reactions Criticality Noted Date [...] 64 11/04/2023 12:07 PM CDT Temperature 36.4 C (97.5 F) 11/04/2023 12:07 PM CDT Respiratory Rate 18 11/04/2023 12:0 [...] (2 of 2) 02/08/2022 12/14/2021 COVID-19 VACCINE (1 - 2023-2 5 season) 2024 INFLUENZA VACCINE (#1) 2024 9, 02/28/2018 DEPRESSION SCREENING 05/22/2024 MEDICARE AWV CALENDAR YEAR 2024 PNEUMOCOCCAL VACCINE 50+ Completed 019, 02/28/2018 HEPATITIS B VACCINE Aged Out No longe r eligible based on patient's age to complete this topic HIB VACCINE Aged Out No longer eligi ble based on patient's age to complete this topic HPV VACCINE Aged Out No longer eligi ble based on patient's age to complete this topic MENINGOCOCCAL (Group B) VACCINE SHARED DECISION-MAKING Aged Out No longer eligible based on patient's age to complete this topic MENINGOCOCCAL GROUPS A/C/Y/W VACCINE Aged Out No longer eligible b ased on patient's age to complete this topic Medical Devices Implanted Type Area Finishing Supervisor Device Identifier Shelf Expiration Date Model / Serial / Lot Patch Cv Thk.4mm 9x2cm [facility] - [id number] Implanted:Qty: 1 on 11/03/2023 by Sonu Morales MD at [facility] [employer] 04/14/2028 [id number] / [id number] / Advance Directives * Full Code (Latest Code Status on File) Date Activated Date Inactivated Comments 11/03/2023 3:02 PM 11/04/2023 3:12 PM Care Teams Sponge Buffer Relationship Specialty Start Date End Date Hola Johnston DO [address] [place] [address] PCP - General Internal Medicine 10/20/23
[2024-08-07 12:21] LABS: Hemoglobin A1C 6.2 % (<5.7)
[2024-08-07 12:43] LABS: Alanine Aminotransferase 22 U/L (6-35); Albumin Level 4.2 g/dL (3.5-5.1); Alkaline Phosphatase 48 U/L (38-126); Anion Gap 7 mmol/L (4-12); Aspartate Amino Transferase 24 U/L (14-36); Bilirubin,Total 0.8 mg/dL (0.2-1.3); Blood Urea Nitrogen 19 mg/dL (7-17); CRP < 0.5 mg/dL (<1.0); Calcium 9.8 mg/dL (8.4-10.2); Carbon Dioxide 27 mmol/L (22-30); Chloride 106 mmol/L (98-107); Cholesterol 139 mg/dL (0-200); Estimated Glomerular Filt Rate > 60; Glucose 116 mg/dL (65-110); HDL Direct 52 mg/dL; Potassium 3.9 mmol/L (3.4-5.0); Sodium 140 mmol/L (137-145); Triglycerides 98 mg/dL (<150)
[2024-08-07 12:45] LABS: Erythrocyte Sedimentation Rate 15 mm/hr (0-20)
[2024-08-07 12:48] LABS: Creatinine Urine 121.2 mg/dL
[2024-08-07 12:51] LABS: LDL Cholesterol Direct 53 mg/dL
[2024-08-07 12:51] LABS: MALB Creatinine Ratio 32.8 mg/g (0-30); Microalbumin Urine Random 39.8 mg/L (0-16.7)
[2024-08-07 13:04] LABS: Vitamin D 25 Hydroxy 27.4 ng/mL
== END 2024-08-07 10:42 | disposition home or self-care (01) ==
PROVIDERS: PCP Nurse Practitioner; Referring Provider Anesthesiology Pain Medicine; Visit Provider Nurse Practitioner
DX: E11.69 Type 2 diabetes mellitus with other specified complication (principal); E78.5 Hyperlipidemia, unspecified; E55.9 Vitamin D deficiency, unspecified; E07.9 Disorder of thyroid, unspecified; I10 Essential (primary) hypertension; E11.36 Type 2 diabetes mellitus with diabetic cataract; D50.9 Iron deficiency anemia, unspecified
CPT/HCPCS: 36415; 80053; 80061; 82043; 82306; 82728; 83036; 84443; 85025; 85046; 85652; 86140

== ENCOUNTER 2024-11-28 15:46 | Outpatient (CLI) | payer MEDICARE, SELFPAY ==
--- NOTE | ~2024-11-28 | CT_ITS ---
Noncontrast CT scan of the cervical spine Technique: Multiple contiguous axial [address] images of the cervical spine were obtained and rec onstructed in 2D sagittal and coronal planes on the acquisition scanner. Dose reduction technique was used on this scan by utilizing automated exposure control, adjustment of the mA and/or kV according to patient size. The dose-length product (DLP) was 302.62 mGy-cm. Clinical History: Spinal stenosis Findings: No acute fracture seen in the cervical spine. There is minimal grade 1 anterolisthesis of C 4 over C5. There is advanced degenerative change at the articulation of the odontoid process with the anterior arch of C1. At C2-C3, there is bilateral facet arthropathy. No definite disc bulge or herniation. No definite spi nal canal stenosis, cord compression, or neural foraminal narrowing. At C3-C4, there is disc osteophyte complex with extensive bilateral facet arthropathy. There is sever e bilateral neural foraminal narrowing. No definite canal stenosis or cord compression. At C4-C5, there is mild disc bulge. There is severe bilateral facet arthropathy. There is bilateral m oderate to severe neural foraminal narrowing. No definite canal stenosis or cord compression. At C5-C6, there is advanced degenerative disc narrowing. There is mild disc osteophyte complex. There is mild bilateral facet arthropathy. There is moderate bilateral neural foraminal narrowing. No defi nite canal stenosis or cord compression. At C6-C7, there is advanced degenerative disc narrowing. There is advanced right facet arthropathy. T here is mild bilateral neural foraminal narrowing. No definite canal stenosis or cord compression. Paravertebral soft tissues are unremarkable. There is mosaic attenuation pattern in the visualized up per lobes of the lungs. Impression: No acute fracture. Minimal grade 1 anterolisthesis of C4 over C5. Moderate degenerative spondylitic changes overall, with extensive facet arthropathy and multilevel ne ural foraminal narrowing. Mosaic attenuation pattern of the upper lobes of lungs. Consider pulmonary edema, bronchiolitis, asth ma, hypersensitivity pneumonitis, chronic PE. Reviewed, dictated and finalized at [facility]. Impression: No acute fracture. Minimal grade 1 anterolisthesis of C4 over C5. Moderate degenerative spondylitic changes overall, with extensive facet arthrop athy and multilevel neural foraminal narrowing. Mosaic attenuation pattern of the upper lobes of lungs. Consider pulmonary max a, bronchiolitis, asthma, hypersensitivity pneumonitis, chronic PE.
--- OUTSIDE RECORDS SUMMARY | 2024-11-28 15:51 | XMS_ITS | Referral Summary ---
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 73 m2 [facility] Comment: Interpretive Data Reference Interval Normal >/= [...] ORDERABLES F inal Result [facility] [place] [address] from Last 3 Months or Most Recently Relevant to Health Maintenance Insurance HUMANA CHOICE MEDICARE PPO HUMANA CHOICE MEDICARE PPO Advance Directives For more information, please contact: [phone] * Full Code (Latest Code Status on File) Date Activated Date Inactivated Comments 01/06/2022 2:49 PM 01/08/2022 6:35 PM Care Teams Meat Counter Worker Relationship Specialty Start Date End Date Yessy Alvarez MD [address] [place] [address] [address] PCP - General Family Medicine 09/28/21
--- OUTSIDE RECORDS SUMMARY | 2024-11-28 15:51 | XMS_ITS | Patient Health Record ---
Author Organization [facility] [employer] Address [address] [facility] [address] [place] [address] Care Team Providers Care Rn Telehealth Name Role Phone Rangel Snider Unavailable [phone] Reason For Referral No Information Social History Sex Assigned At : Social History Observation Description Sex Assigned At Female Plan Of Treatment No Information Insurance Providers Payer Name Payer Address Payer Phone Subscriber Number Group Number Insured Name Patient Relationship to Insured Coverage Start Date Coverage End Date Wellcare Medicare Replacemen t/Advantag e - [place] [address] [address] [place] [address] [id number] TONI SCHAEFER Self - patient is the insured
--- OUTSIDE RECORDS SUMMARY | 2024-11-28 15:51 | XMS_ITS | Encounter Summary ---
Author Organization [facility] Address [address] [place] [address] Care Team Providers Care Parent Partner Name Role Phone Hola Johnston DO Primary Care Provider [phone] Dasha Oden APRN-CERTIFIED MEDICAL DOSIMETRIST Primary Care Provider [phone] Encounter Details Date Type Department Care Team ([facility] Contact Info) Description 01/12/2024 Telephone [facility] [address] [place] [phone] Annie Ramírez, KAELYN [address] [place] [address] [place] [address] Social History Tobacco Use Types [...] of Binge Drinking Not on file 10/20 Comments No Sex and Gender Information Value Date Recorded Sex Assigned at Not on file Legal Sex Female 12:37 PM CDT Gender Identity Not on file Sexual Orientation Not on file documented as of this encounter Plan of Treatment Upcoming Encounters Date Type Department Care Team ([facility] Contact Info) Description 12/30/2024 2:45 PM CDT Office Visit [facility] [address] [place] [phone] Woody Biswas MD [address] [place] [address] [address] [place] [address] 02/25/2025 3:20 PM CDT Office Visit [facility] - CLINICAL TRIALS DATA COORDINATOR [address], [facility] [address] [place] [phone] Payal Richey MD [address] [facility] [address] [place] [address] documented as of this encounter Visit Diagnoses Not on filedocumented in this encounter Care Teams Parent Partner Relationship Specialty Start Date End Date Hola Johnston DO [address] [address] PCP - General Internal Medicine 10/20/23 11/24/24 Dasha Oden APRN-CERTIFIED MEDICAL DOSIMETRIST [address] [phone] PCP - General Nurse Practitioner 11/25/24 documented as of this encounter
--- OUTSIDE RECORDS SUMMARY | 2024-11-28 15:51 | XMS_ITS | Continuity of Care Document ---
Author Organization [facility] Address [address] [place] [address] Phone Care Team Providers Care Regulatory Administrator Name Role Phone Barrett Haddad MD Unavailable Unavailable Advance Directives Directive Yes / No Effective Date File Name No Information Encounters Encounter Description Practice Location Reason(s) For Visit Diagnoses Date Provider Providers Copied on Encounter [facility], [address], [place], [place], [address], [place] tel:[phone] SEC [facility] No Information 4[address] [facility], [address], [place], [place], [address], [place]. tel:[phone] Family History Family Member Type Diagnosis Age At Onset No Information Payers Payer name Insurance type Covered alliance party ID Authoriza tion(s) No Information Social History [...]
--- OUTSIDE RECORDS SUMMARY | 2024-11-28 15:51 | XMS_ITS | Clinical Summary ---
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
--- OUTSIDE RECORDS SUMMARY | 2024-11-28 15:51 | XMS_ITS | Clinical Summary ---
Author Organization [facility] Address [address] [place] [address] Care Team Providers Care Water Control Supervisor Name Role Phone Dasha Oden [employer] ARCHITECT-CONSTRUCTION STONEMASON Primary Care Provider [phone] [facility],non-owned Affiliates and Associated Physician Practices is amultiple site organization consisting of ambulatory clinics and hospital sitesin [place], [place], [place] and [place]. This disclosure is being madepursuant to the Care Everywhere program and may not contain all information available regarding this patient. Last updated 18.[facility] Allergies Active Allergy Reactions Criticality Noted Date Comments Tramadol Nausea and/or Vomiting Low 01/06/2022 Medications * Be aware that medications may not be up to date on this document. Alwaysverify current medications with the patient. cyclobenzaprin e (Flexeril) 5 MG tablet Take 1 (one) tablet by mouth 2 times daily 4 Active irbesartan (Avapro) 75 MG tablet Take 1 (one) tablet by mouth once daily 4 Active Synthroid 75 MCG tablet Take 1 (one) tablet by mouth once daily 4 Active lovastatin (Mevacor) 40 MG tablet Take 1 (one) tablet by mouth at bedtime 4 Active metFORMIN ER 24hr (Glucophage XR) 500 MG tablet Take 1 (one) tablet by mouth daily with dinner 4 Active metoprolol tartrate IR (Lopressor) 50 MG tablet Take 1 (one) tablet by mouth 2 times daily 4 Active pantoprazole EC (Protonix) 40 MG tablet Take 1 (one) tablet by mouth once daily 4 Active acetaminophen (Tylenol) 325 MG tablet Take 2 (two) tablets by mouth every 6 hours Maximum allowable Acetaminophen amount = 4 Grams (4000 mg) / 24 hours. 4 Active busPIRone (Buspar) 5 MG tablet Take 1 (one) tablet by mouth 3 times daily 4 Active gabapentin (Neurontin) 300 MG capsule Take 1 (one) capsule by mouth at bedtime 4 Active Active Problems Problem Noted Date Diagnosed Date Vocal cord paralysis 11/03/2023 Encounters Date Type Department Care Team Description 11/12/2024 Travel 10/30/2024 Telephone [facility] [address] [place] [phone] Sonu Morales MD Appointment 10/25/2024 Telephone [facility] [address] [place] [phone] Arian Finney PA Appointment 10/25/2024 Telephone [facility] [address] [place] [phone] Arian Finney PA Appointment from Last 3 Months Immunizations Immunization Administration Dates Next Due INFLUENZA VACCINE, HIGH-DOSE [...] 11/03/2023 8:52 AM CDT Plan of Treatment Upcoming Encounters Date Type Department Care Team (Late st Contact Info) Description 12/30/2024 2:45 PM CDT Office Visit [facility]NT [address] [facility], [place] [phone] Woody Biswas MD [address] [facility] [address] [place] [address] 02/25/2025 3:20 PM CDT Office Visit [facility] - PERSONAL TRAINER [address], [facility] [address] [place] [phone] Payal Richey MD [address] [facility] [address] [place] [address] Health Maintenance Due Date Last Done Comments BONE DENSITY TESTING 1943 DTAP/TDAP/TD VACCINES (1 - Tdap) 1962 Respiratory Syncytial Virus (RSV) Vaccine Pt: or over 60 yrs (1 - 1-dose 75+ series) 2018 ZOSTER VACCINE (2 of 2) 02/08/2022 12/14/2021 DEPRESSION SCREENING 05/22/2024 MEDICARE AWV CALENDAR YEAR 2024 COVID-19 VACCINE ( season) 2024 04/30/2024, 04/07/2023, 02/25/2022, Additional history exists INFLUENZA VACCINE (#1) 2025 , 02/21/2023, 02/04/2022, Additional history exists PNEUMOCOCCAL VACCINE 50+ Completed 02/01/2019, 02/19 HEPATITIS B VACCINE Aged Out No longe [...] A/C/Y/W VACCINE Aged Out No longer eligible based on patient's age to complete this topic Medical Devices Implanted Type Area Machine Precision Etcher Device Identifier Shelf Expiration Date Model / Serial / Lot Patch Cv Thk.4mm 9x2cm [facility] - [id number] Implanted:Qty: 1 on 11/03/2023 by Sonu Morales MD at [facility] [employer] 04/14/2028 [id number] / [id number] / Insurance HUMANA WELLCARE Advance Directives * Full Code (Latest Code Status on File) Date Activated Date Inactivated Comments 11/03/2023 3:02 PM 11/04/2023 3:12 PM Care Teams Water Control Supervisor Relationship Specialty Start Date End Date Dasha Oden APRN-TANI [address] [phone] PCP - General Nurse Practitioner 11/25/24
--- OUTSIDE RECORDS SUMMARY | 2024-11-28 15:51 | XMS_ITS | Clinical Summary ---
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 Gender Identity Not on file Sexual [...] season) 2024 11/13/2021, 03/24/2021, 07/30/2020 Influenza Vaccine (Season Ended) 2025 02/02/2021, 02/12/2020, 02/01/2019, Additional history exists Pneumococcal vaccine [...] ORDERABLES F inal Result [facility] [place] [address] from Last 3 Months or Most Recently Relevant to Health Maintenance Insurance HUMANA CHOICE MEDICARE PPO HUMANA CHOICE MEDICARE PPO Advance Directives For more information, please contact: [phone] * Full Code (Latest Code Status on File) Date Activated Date Inactivated Comments 01/06/2022 2:49 PM 01/08/2022 6:35 PM Care Teams Assistant Professor Of Geography Relationship Specialty Start Date End Date Yessy Alvarez MD [address] [place] [address] DR MANN [address] [place] [address] PCP - General Family Medicine 09/28/21
== END 2024-11-28 15:47 | disposition home or self-care (01) ==
PROVIDERS: PCP Nurse Practitioner; Visit Provider Nurse Practitioner Adult Health
DX: M48.02 Spinal stenosis, cervical region (principal); M47.22 Other spondylosis with radiculopathy, cervical region
CPT/HCPCS: 72125

== ENCOUNTER 2024-12-09 13:58 | Outpatient (CLI) | payer MEDICARE, SELFPAY ==
--- NOTE | ~2024-12-09 | CT_ITS ---
EXAMINATION: CT diagnostic chest w con DATE: 12/09/2024 14:47 INDICATION: R91.8 - Other nonspecific abnormal finding of lung field on prior cervical spine CT TECHNIQUE: Computed tomography (CT) of the chest was performed with 75 mL Omnipaque-350 intravenous c ontrast. Additional 3D reconstructions utilizing coronal maximum intensity projection (MIP) were perf ormed. Automated exposure control and iterative reconstruction technique were employed. The dose-jenny th product was 177.81 mGy-cm. COMPARISON: CT dated 11/28/2024 FINDINGS: The previously seen mosaic attenuation at the bilateral upper lobes have resolved. Review of prior im aging demonstrates concave posterior wall of the trachea suggesting this may have represented atelect asis related to expiratory phase of imaging with subsegmental regions of more lucent air trapping as can be seen in the setting of small airway disease.. Mild left basilar atelectasis. 5 mm calcified no dules at the lingula with calcified mediastinal lymph nodes consistent with old granulomatous disease . Small region of age-indeterminate tree-in-bud opacity at the basilar left lower lobe consistent wit h bronchiolitis with endobronchial spread of disease. No pulmonary edema, pleural effusion or pneumot horax. Heart size is normal. No pericardial effusion. Thoracic aorta is normal in caliber with no dis section. No pathologically enlarged thoracic lymphadenopathy. Common bile duct is dilated to 1.6 cm t here is mild to moderate intrahepatic biliary ductal dilation. Multiple small cysts and parapelvic cy sts at the bilateral kidneys. Mild thoracic dextrocurvature with mild to moderate spondylosis. Severe lower cervical spondylosis. IMPRESSION: 1. Small region of age-indeterminate tree-in-bud opacity at the basilar left lower lobe consistent wi th bronchiolitis with endobronchial spread of disease. 2. Mild to moderate intra and extra hepatic biliary ductal dilation which can be seen postcholecystec hannah. Correlate with surgical history and with liver function tests. Clinically indicated this could be further evaluated with MRI/MRCP. Reviewed, dictated and finalized at location A. IMPRESSION: 1. Small region of age-indeterminate tree-in-bud opacity at the basilar left lo wer lobe consistent with bronchiolitis with endobronchial spread of disease. 2. Mild to moderate intra and extra hepatic biliary ductal dilation which can b e seen postcholecystectomy. Correlate with surgical history and with liver func tion tests. Clinically indicated this could be further evaluated with MRI/MRCP.
--- OUTSIDE RECORDS SUMMARY | 2024-12-09 14:06 | XMS_ITS | Patient Health Record ---
Author Organization [facility] [employer] Address [address] [facility] [address] [place] [address] Care Team Providers Care Principal Clerk Typist Name Role Phone Rangel Snider Unavailable [phone] Reason For Referral No Information Social History Sex Assigned At : Social History Observation Description Sex Assigned At Female Plan Of Treatment No Information Insurance Providers Payer Name Payer Address Payer Phone Subscriber Number Group Number Insured Name Patient Relationship to Insured Coverage Start Date Coverage End Date Wellcare Medicare Replacemen t/Advantag e - Hmo [address] [address] [place] [address] [id number] TONI SCHAEFER Self - patient is the insured
--- OUTSIDE RECORDS SUMMARY | 2024-12-09 14:06 | XMS_ITS | Continuity of Care Document ---
Author Organization [facility] Address [address] [facility] [address] [place] [address] Phone Care Team Providers Care Library Circulation Technician Name Role Phone Barrett Haddad MD Unavailable Unavailable Advance Directives Directive Yes / No Effective Date File Name No Information Encounters Encounter Description Practice Location Reason(s) For Visit Diagnoses Date Provider Providers Copied on Encounter [facility], [address], [place], [place], [id number], [place] tel:[phone] SEC [facility] No Information 4[address] [facility], [address], [place], [place], [address], [place]. tel:[phone] Family History Family Member Type Diagnosis Age [...]
--- OUTSIDE RECORDS SUMMARY | 2024-12-09 14:06 | XMS_ITS | Clinical Summary ---
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 Gender Identity Not on file Sexual Orientation [...] ORDERABLES F inal Result [facility] Department [place] [address] from Last 3 Months or Most Recently Relevant to Health Maintenance Insurance HUMANA CHOICE MEDICARE PPO HUMANA CHOICE MEDICARE PPO Advance Directives For more information, please contact: [phone] * Full Code (Latest Code Status on File) Date Activated Date Inactivated Comments 01/06/2022 2:49 PM 01/08/2022 6:35 PM Care Teams Labor Employment Associate Relationship Specialty Start Date End Date Yessy Alvarez MD [address] [place] [address] [address] [place] [address] PCP - General Family Medicine 09/28/21
--- OUTSIDE RECORDS SUMMARY | 2024-12-09 14:06 | XMS_ITS | Referral Summary ---
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 Gender Identity Not on file Sexual Orientation [...] ORDERABLES F inal Result [facility] [place] [address] from Last 3 Months or Most Recently Relevant to Health Maintenance Insurance HUMANA CHOICE MEDICARE PPO HUMANA CHOICE MEDICARE PPO Advance Directives For more information, please contact: [phone] * Full Code (Latest Code Status on File) Date Activated Date Inactivated Comments 01/06/2022 2:49 PM 01/08/2022 6:35 PM Care Teams Sheet Metal Supervisor Relationship Specialty Start Date End Date Yessy Alvarez MD [address] [place] [address] [address] PCP - General Family Medicine 09/28/21
--- OUTSIDE RECORDS SUMMARY | 2024-12-09 14:06 | XMS_ITS | Clinical Summary ---
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
--- OUTSIDE RECORDS SUMMARY | 2024-12-09 14:06 | XMS_ITS | Encounter Summary ---
Author Organization [facility] Address [address] [place] [address] Care Team Providers Care Costume Shop Coordinator Name Role Phone Hola Johnston DO Primary Care Provider [phone] Dasha Oden APRN-MARINE CONSULTANT Primary Care Provider [phone] Encounter Details Date Type Department Care Team ([facility] Contact Info) Description 01/12/2024 Telephone [facility] E[facility] [address] [place] [phone] Annie Ramírez, KAELYN [address] [place] [address] [place] [address] Social History Tobacco Use Types [...] Upcoming Encounters Date Type Department Care Team ([facility] Contact Info) Description 12/30/2024 2:45 PM CDT Office Visit [facility]NT [address] [place] [phone] Woody Biswas MD [address] [place] [address] [address] [place] [address] 02/25/2025 3:20 PM CDT Office Visit [facility] - CONTROL CLERK AUDITING [address], [facility] 200 [place] [phone] Payal Richey MD [address] [facility] 400 [place] [address] documented as of this encounter Visit Diagnoses Not on filedocumented in this encounter Care Teams Costume Shop Coordinator Relationship Specialty Start Date End Date Hola Johnston DO [address] [address] PCP - General Internal Medicine 10/20/23 11/24/24 Dasha Oden APRN-MARINE CONSULTANT [address] [phone] PCP - General Nurse Practitioner 11/25/24 documented as of this encounter
--- OUTSIDE RECORDS SUMMARY | 2024-12-09 14:06 | XMS_ITS | Clinical Summary ---
Author Organization [facility] Address [address] [place] [address] Care Team Providers Care Cocoa Bean Roaster Helper Name Role Phone Dasha Oden MANUFACTURING BUSINESS ANALYST-TOGGLER Primary Care Provider [phone] Source Comments [facility],non-owned Affiliates and Associated Physician Practices is amultiple site organization consisting of ambulatory clinics and hospital sitesin [place], [place], [place] and [place]. This disclosure is being madepursuant to the Care Everywhere program and may not contain all information available regarding this patient. Last updated 18.[facility] Allergies Active Allergy Reactions Criticality Noted Date [...] 10/30/2024 Telephone [facility] [address] [place] [phone] Sonu Morales MD Appointment 10/25/2024 Telephone [facility] [address] [place] [phone] Arian Finney PA Appointment 10/25/2024 Telephone [facility] [address] [place] [phone] Arian Finney PA Appointment from Last 3 [...] Description 12/30/2024 2:45 PM CDT Office Visit [facility] - ENT [address] [facility], [place] [phone] Woody Biswas MD [address] [facility] [address] 3 [place] [address] 02/25/2025 3:20 PM CDT Office Visit [facility] - PROFESSOR OF ANTHROPOLOGY [address], [facility] 200 [place] [phone] Payal Richey MD [address] [facility] 400 [place] [address] Health Maintenance Due Date Last [...] this topic Medical Devices Implanted Type Area Svp Programmatic Tv Device Identifier Shelf Expiration Date Model / Serial / Lot Patch Cv Thk.4mm 9x2cm [facility] [id number] Implanted:Qty: 1 on 11/03/2023 by Sonu Morales MD at [facility] [employer] 04/14/2028 [id number] / [id number] / Insurance HU[employer] WELLC[employer] Advance Directives * Full Code (Latest Code Status on File) Date Activated Date Inactivated Comments 11/03/2023 3:02 PM 11/04/2023 3:12 PM Care Teams Cocoa Bean Roaster Helper Relationship Specialty Start Date End Date Dasha Oden APRN-TANI [address] [address] PCP - General Nurse Practitioner 11/25/24
[2024-12-09 14:42] LABS: Estimated Glomerular Filt Rate > 60
== END 2024-12-09 13:59 | disposition home or self-care (01) ==
PROVIDERS: PCP Nurse Practitioner; Visit Provider Nurse Practitioner
DX: R91.8 Other nonspecific abnormal finding of lung field (principal)
CPT/HCPCS: 71260; Q9967

== ENCOUNTER 2024-12-26 09:49 | Emergency (ER) | payer MEDICARE, SELFPAY ==
[2024-12-26] VITALS (32 sets, daily range): BP systolic 150–247; BP diastolic 62–142; PULSE 55–126; RESP 12–24; TEMP 36.4; O2SAT 88–100
--- NOTE | ~2024-12-26 | CT_ITS ---
EXAMINATION: CTA chest PE protocol DATE: 12/26/2024 11:36 INDICATION: Chest pain TECHNIQUE: Computed tomography (CT) pulmonary angiogram of the chest was performed with 100 mL Omnipa que-350 intravenous contrast. Additional 3D reconstructions utilizing coronal maximum intensity proje ction (MIP) were performed. Automated exposure control and iterative reconstruction technique were em ployed. The dose-length product was 289.03 mGy-cm. COMPARISON: 12/09/2024 FINDINGS: No pulmonary embolism. Mild bibasilar atelectasis. 5 mm likely calcified nodule at the lingula unchan ged since 01/07/2017 which along with calcite left hilar and mediastinal lymph nodes are consistent wi th old granulomatous disease. There is mosaic attenuation in the bilateral lower lobes likely related to incomplete inspiration with subsegmental regions of more lucent air trapping. No pneumonia, pulmo nary edema, pleural effusion or pneumothorax. Heart size is normal. Atherosclerotic coronary artery c alcification. No pericardial effusion. Thoracic aorta is normal in caliber with no dissection. No pat hologically enlarged thoracic lymphadenopathy. The common hepatic duct is dilated to 2.2 cm which tap ers distally throughout the common bile duct without evident obstructing stone or mass although the d istalmost common bile duct is not visualized. There is also mild to moderate intrahepatic biliary bryant rosas dilation. Biliary ductal dilation can be seen as sequela of prior cholecystectomy although this i s more prominent than typical. Splenic calcifications consistent with old granulomatous disease. Janiya re lower cervical and moderate thoracic spondylosis. IMPRESSION: 1. Mosaic attenuation in the dependent lungs with subsegmental regions of more lucent air trapping li arelis related to small airway disease. No pulmonary embolism or other acute cardiopulmonary disease. 2. Moderate intra and extra hepatic biliary ductal dilation which could be related to prior cholecyst ectomy but is more prominent than typical. Correlate with liver function tests and if clinically agustín cated could consider MRCP for further evaluation. Reviewed, dictated and finalized at location A. IMPRESSION: 1. Mosaic attenuation in the dependent lungs with subsegmental regions of more lucent air trapping likely related to small airway disease. No pulmonary emboli sm or other acute cardiopulmonary disease. 2. Moderate intra and extra hepatic biliary ductal dilation which could be rela dianna to prior cholecystectomy but is more prominent than typical. Correlate with liver function tests and if clinically indicated could consider MRCP for furth er evaluation.
--- OUTSIDE RECORDS SUMMARY | 2024-12-26 09:56 | XMS_ITS | Encounter Summary ---
Author Organization [facility] Address [address] [place] [address] Care Team Providers Care Transportation Clerk Name Role Phone Hola Johnston DO Primary Care Provider [phone] Dasha Oden APRN-SAMPLE DISPLAY PREPARER Primary Care Provider [phone] Encounter Details Date Type Department Care Team ([facility] Contact Info) Description 01/12/2024 Telephone [facility] [address] [place] [phone] Annie Ramírez, KAELYN [address] [place] [address] [place] [address] Social History Tobacco Use Types [...] Upcoming Encounters Date Type Department Care Team ([facility] Contact Info) Description 12/30/2024 2:45 PM CDT Office Visit [facility]NT [address] [place] [phone] Woody Biswas MD [address] [place] [address] [address] [place] [address] 02/25/2025 3:20 PM CDT Office Visit [facility] - ELECTRIC FURNACE OPERATOR [address], [facility] 200 [place] [phone] Payal Richey MD [address] [facility] 400 [place] [address] documented as of this encounter Visit Diagnoses Not on filedocumented in this encounter Care Teams Transportation Clerk Relationship Specialty Start Date End Date Hola Johnston DO [address] [address] PCP - General Internal Medicine 10/20/23 11/24/24 Dasha Oden APRN-SAMPLE DISPLAY PREPARER [address] [phone] PCP - General Nurse Practitioner 11/25/24 documented as of this encounter
--- OUTSIDE RECORDS SUMMARY | 2024-12-26 09:56 | XMS_ITS | Patient Health Record ---
Author Organization [facility] Address [address] [facility] [address] [place] [address] Care Team Providers Care E Learning Manager Name Role Phone Rangel Snider Unavailable [phone] Reason For Referral No Information Social History Sex Assigned At : Social History Observation Description Sex Assigned At Female Plan Of Treatment No Information Insurance Providers Payer Name Payer Address Payer Phone Subscriber Number Group Number Insured Name Patient Relationship to Insured Coverage Start Date Coverage End Date Well[employer] Medicare Replacemen t/Advantag e - [place] [address] [address] [place] [address] [id number] TONI SCHAEFER Self - patient is the insured
--- OUTSIDE RECORDS SUMMARY | 2024-12-26 09:56 | XMS_ITS | Clinical Summary ---
Author Organization [facility] Address [address] [place] [address] Care Team Providers Care Licensed Mortician Name Role Phone Dasha Oden COMPREHENSIVE OPHTHALMOLOGIST-CRUSHER PLANT OPERATOR Primary Care Provider [phone] Source Comments [facility],non-owned Affiliates and Associated Physician Practices is amultiple site organization consisting of ambulatory clinics and hospital sitesin [place], [place] and [place]. This disclosure is being madepursuant to the Care Everywhere program and may not contain all information available regarding this patient. Last updated 18.[facility] Allergies Active Allergy Reactions Criticality Noted Date [...] 10/30/2024 Telephone [facility] [address] [place] [phone] Sonu Morales MD Appointment 10/25/2024 Telephone [facility] [address] [place] [phone] Arian Finney PA Appointment 10/25/2024 Telephone [facility] [address] [place] [phone] Arian Finney PA Appointment from Last 3 [...] Description 12/30/2024 2:45 PM CDT Office Visit [facility] - ENT [address] [facility], [place] [phone] Woody Biswas MD [address] [facility] [address] 3 [place] [address] 02/25/2025 3:20 PM CDT Office Visit [facility] - SUPERVISOR FIREARMS [address], [facility] 200 [place] [phone] Payal Richey MD [address] [facility] 400 [place] [address] Health Maintenance Due Date Last [...] this topic Medical Devices Implanted Type Area Journeyman Millwright Device Identifier Shelf Expiration Date Model / Serial / Lot Patch Cv Thk.4mm 9x2cm [facility] - [id number] Implanted:Qty: 1 on 11/03/2023 by Sonu Morales MD at [facility] [employer] 04/14/2028 [id number] / [id number] / Insurance [employer] Advance Directives * Full Code (Latest Code Status on File) Date Activated Date Inactivated Comments 11/03/2023 3:02 PM 11/04/2023 3:12 PM Care Teams Licensed Mortician Relationship Specialty Start Date End Date Dasha Oden APRN-TANI [address] [address] PCP - General Nurse Practitioner 11/25/24
--- OUTSIDE RECORDS SUMMARY | 2024-12-26 09:56 | XMS_ITS | Clinical Summary ---
Author Organization [facility] Address [address] [address] Phone Care Team Providers Care Straddle Bug Driver Name Role Phone Yessy Alvarez MD Primary [...] on file Legal Sex Female 12:46 PM LEASE ADMINISTRATOR Gender Identity Not on file Sexual Orientation [...] Health Maintenance Due Date Last Done Comments Hepatitis C Virus (HCV) Screening 1945 TdaP Immunization 1945 Pneumococcal Immunization (5 0+ years) (1 of 1 - PCV) 1993 Zoster Immunization (1 of 2) 1993 Respiratory Syncytial Virus (RSV) Immunization (Adult) (1 - 1-dose 75+ series) 2018 SARS-COV-2 Immunization (1 - 2023- season) 2024 Influenza Immunization (#1) 2025 03/12/2017 Hepatitis B Immunization Aged Out No longer eligible based on patient's age to complete this topic Human Papillomavirus (HPV) Immunization Aged Out No longer eligible b ased on patient's age to complete this topic Meningococcal Immunization (ACWY) Aged Out No longer eligible based on patient's age to complete this topic Rotavirus Immunization Aged Out No lo nger eligible based on patient's age to complete this topic Insurance MEDICARE C HUMANA Care Teams Straddle Bug Driver Relationship Specialty Start Date End Date Yessy Alvarez MD [address] [place] [address] PCP - General Family Medicine 12/31/19
--- OUTSIDE RECORDS SUMMARY | 2024-12-26 09:56 | XMS_ITS | Clinical Summary ---
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 Dysphonia 06/22/2019 Depressive [...] Depression Diabetes (HCC) DVT (deep venous thrombosis) HTN (hypertension) Thyroid disease Family History Medical [...] on file Legal Sex Female 12:31 PM NON LICENSED OPERATOR Gender Identity Not on file Sexual [...] 2024 11/13/2021, 03/24/2021, 07/30/2020 Influenza Vaccine (#1) 2025 , 02/12/2020, 02/01/2019, Additional history exists Pneumococcal vaccine 65+ Completed 02/01/2019, 02/19 Procedures Procedure Name Priority Date/Time Associated Diagnosis Comments EGFR STAT 01/06/2022 10:53 AM CDT from Last 3 Months or Most Recently Relevant to Health Maintenance Results * (ABNORMAL) eGFR (01/06/2022 10:53 AM CDT) eGFR 89(L) 90 - 130 mL/min/1. 73 m2 CHAPARRO WARD Comment: Interpretive Data Reference Interval Normal >/= [...] ORDERABLES F inal Result CHAPARRO POE [facility] [place] [address] from Last 3 Months or Most Recently Relevant to Health Maintenance Insurance HUMANA CHOICE MEDICARE PPO HUMANA CHOICE MEDICARE PPO Advance Directives For more information, please contact: [phone] * Full Code (Latest Code Status on File) Date Activated Date Inactivated Comments 01/06/2022 2:49 PM 01/08/2022 6:35 PM Care Teams Ferryboat Captain Relationship Specialty Start Date End Date Yessy Alvarez MD [address] [place] [address] [address] PCP - General Family Medicine 09/28/21
--- OUTSIDE RECORDS SUMMARY | 2024-12-26 09:56 | XMS_ITS | Continuity of Care Document ---
Author Organization [facility] Address [address] [facility] [address] [place] [address] Phone Care Team Providers Care Briefcase Sewer Name Role Phone Barrett Haddad MD Unavailable Unavailable Advance Directives Directive Yes / No Effective Date File Name No Information Encounters Encounter Description Practice Location Reason(s) For Visit Diagnoses Date Provider Providers Copied on Encounter [facility], [address], [place], [place], [id number], [place] tel:[phone] [address] [facility] No Information 4-[address] [facility], [address], [place], [place], [address], [place]. tel:[phone] Family History Family Member Type Diagnosis Age At Onset No Information Payers Payer name Insurance type Covered constitution party ID Authoriza tion(s) No Information Social [...]
--- NOTE | 2024-12-26 10:15 | ECG_ITS ---
Test Date: 2024-12-26 10:20:33 Measurements Intervals Allen Rate: 59 P: 15 WA: 162 QRS: -36 QRSD: 151 T: 6 QT: 437 QTc: 436 Interpretive Statements SINUS BRADYCARDIA WITH OCCASIONAL SUPRAVENTRICULAR PREMATURE COMPLEXES LEFT AXIS DEVIATION RIGHT BUNDLE BRANCH BLOCK BASELINE ARTIFACT- I, II, III, AVR, AVL, AVF, V1-V6 ABNORMAL ECG No previous ECG available for comparison Electronically Signed On 12-26-2024 10:44:28 CDT by Sumit Pizano D.O.
[2024-12-26 10:44] LABS: Hematocrit 43.5 % (37.0-47.0); Hemoglobin 14.5 g/dL (12.0-15.0); Immature Granulocyte Percent A 0.3 % (0-0.5); Lymphocytes Absolute Auto 6.60 K/mm3 (0.9-3.2); Mean Corpuscular HGB Conc 33.3 g/dl (32-36); Mean Corpuscular Hemoglobin 31.0 pg (26-34); Mean Corpuscular Volume 92.9 fl (80-100); Nucleated Red Blood Cells Absolute Auto 0.000 K/mm3 (0.0-0.012); Nucleated Red Blood Cells Perc 0.0 % (0.0-0.2); Platelet Count Result 247 k/mm3 (150-375); Red Blood Count 4.68 M/mm3 (4.2-5.4); White Blood Count 13.7 K/mm3 (4.5-10.0)
--- OUTSIDE RECORDS SUMMARY | 2024-12-26 10:46 | XMS_ITS | Clinical Summary ---
Author Organization [facility] Address [address] [place] [address] Care Team Providers Care Signs And Displays Salesperson Name Role Phone Dasha Oden LOSS PREVENTION COORDINATOR-FILM INSPECTOR Primary Care Provider [phone] Source Comments [facility],non-owned Affiliates and Associated Physician Practices is amultiple site organization consisting of ambulatory clinics and hospital sitesin [place], [place] and [place]. This disclosure is being madepursuant to the Care Everywhere program and may not contain all information available regarding this patient. Last updated 18.[facility] Allergies Active Allergy Reactions Criticality Noted Date [...] 10/30/2024 Telephone [facility] [address] [place] [phone] Sonu Morales MD Appointment 10/25/2024 Telephone [facility] [address] [place] [phone] Arian Finney PA Appointment 10/25/2024 Telephone [facility] [address] [place] [phone] Arian Finney PA Appointment from Last 3 [...] Description 12/30/2024 2:45 PM CDT Office [facility] - ENT [address] [facility], [place] [phone] Woody Biswas MD [address] [facility] [address] [place] [address] 02/25/2025 3:20 PM CDT Office Visit [facility] - RESIDENTIAL GREEN BUILDING DESIGNER [address], [facility] 200 [place] [phone] Payal Richey MD [address] [facility] [address] [place] [address] Health Maintenance Due Date Last [...] this topic Medical Devices Implanted Type Area Plisse Machine Operator Device Identifier Shelf Expiration Date Model / Serial / Lot Patch Cv Thk.4mm 9x2cm [facility] - [id number] Implanted:Qty: 1 on 11/03/2023 by Sonu Morales MD at [facility] [employer] 04/14/2028 [id number] / [id number] / Insurance HU[employer] WELLC[employer] Advance Directives * Full Code (Latest Code Status on File) Date Activated Date Inactivated Comments 11/03/2023 3:02 PM 11/04/2023 3:12 PM Care Teams Signs And Displays Salesperson Relationship Specialty Start Date End Date Dasha Oden APRN-TANI [address] [address] PCP - General Nurse Practitioner 11/25/24
--- OUTSIDE RECORDS SUMMARY | 2024-12-26 10:46 | XMS_ITS | Continuity of Care Document ---
Author Organization [facility] Address [address] [facility] [address] [place] [address] Phone Care Team Providers Care Pressure Controller Name Role Phone Barrett Haddad MD Unavailable Unavailable Advance Directives Directive Yes / No Effective Date File Name No Information Encounters Encounter Description Practice Location Reason(s) For Visit Diagnoses Date Provider Providers Copied on Encounter [facility], [address], [place], [place], [id number], [place] tel:[phone] [address] [facility] No Information 4-[address] [facility], [place], [place], [id number], [place]. tel:[phone] Family History Family Member Type Diagnosis Age At Onset No Information Payers Payer name Insurance type Covered green party ID Authoriza tion(s) No Information Social [...]
--- OUTSIDE RECORDS SUMMARY | 2024-12-26 10:46 | XMS_ITS | Clinical Summary ---
Author Organization [facility] Address [address] [address] Phone Care Team Providers Care Respiratory Therapy Technician Name Role Phone Yessy Alvarez MD Primary [...] on file Legal Sex Female 12:46 PM ADMINISTRATIVE DIRECTOR Gender Identity Not on file Sexual Orientation [...] topic Insurance MEDICARE C HUMANA Care Teams Respiratory Therapy Technician Relationship Specialty Start Date End Date Yessy Alvarez MD [address] [place] [address] PCP - General Family Medicine 12/31/19
--- OUTSIDE RECORDS SUMMARY | 2024-12-26 10:46 | XMS_ITS | Encounter Summary ---
Author Organization [facility] Address [address] [place] [address] Care Team Providers Care Kosher Inspector Name Role Phone Hola Johnston DO Primary Care Provider [phone] Dasha Oden APRN-LABORER ELECTROPLATING Primary Care Provider [phone] Encounter Details Date Type Department Care Team ([facility] Contact Info) Description 01/12/2024 Telephone [facility] [address] [place] [phone] Annie Ramírez, KAELYN [address] [place] [address] [place] [address] Social History Tobacco Use Types [...] Upcoming Encounters Date Type Department Care Team ([facility] Contact Info) Description 12/30/2024 2:45 PM CDT Office Visit [facility] [address] [place] [phone] Woody Biswas MD [address] [place] [address] [address] [place] [address] 02/25/2025 3:20 PM CDT Office Visit [facility] - SUPPORT MANAGER [address], [facility] 200 [place] [phone] Payal Richey MD [address] [facility] 400 [place] [address] documented as of this encounter Visit Diagnoses Not on filedocumented in this encounter Care Teams Kosher Inspector Relationship Specialty Start Date End Date Hola Johnston DO [address] [address] PCP - General Internal Medicine 10/20/23 11/24/24 Dasha Oden APRN-LABORER ELECTROPLATING [address] [phone] PCP - General Nurse Practitioner 11/25/24 documented as of this encounter
--- OUTSIDE RECORDS SUMMARY | 2024-12-26 10:46 | XMS_ITS | Clinical Summary ---
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 Dysphonia 06/22/2019 Depressive [...] on file Legal Sex Female 12:31 PM COMMUNICATIONS DEPARTMENT CHAIRPERSON Gender Identity Not on file Sexual Orientation [...] ORDERABLES F inal Result [facility]APARRO POE [facility] Department [place] [address] from Last 3 Months or Most Recently Relevant to Health Maintenance Insurance HUMANA CHOICE MEDICARE PPO HUMANA CHOICE MEDICARE PPO Advance Directives For more information, please contact: [phone] * Full Code (Latest Code Status on File) Date Activated Date Inactivated Comments 01/06/2022 2:49 PM 01/08/2022 6:35 PM Care Teams Telemetry Rn Relationship Specialty Start Date End Date Yessy Alvarez MD [address] [place] [address] [address] PCP - General Family Medicine 09/28/21
[2024-12-26 10:58] LABS: INR 1.0; Prothrombin Time 12.9 Seconds (11.1-14.7)
[2024-12-26 10:59] LABS: Alanine Aminotransferase 31 U/L (6-35); Albumin Level 4.4 g/dL (3.5-5.1); Alkaline Phosphatase 48 U/L (38-126); Anion Gap 8 mmol/L (4-12); Aspartate Amino Transferase 34 U/L (14-36); Bilirubin,Total 1.2 mg/dL (0.2-1.3); Blood Urea Nitrogen 19 mg/dL (7-17); Calcium 10.4 mg/dL (8.4-10.2); Carbon Dioxide 29 mmol/L (22-30); Chloride 103 mmol/L (98-107); Estimated CRCL calculation 52 ml/min; Estimated Glomerular Filt Rate > 60; Glucose 107 mg/dL (65-110); Lipase 101 U/L (23-300); Partial Thromboplastin Time 24.9 Seconds (22.3-36.8); Potassium 3.8 mmol/L (3.4-5.0); Sodium 140 mmol/L (137-145); Total Protein 7.5 g/dL (6.3-8.2)
[2024-12-26 11:07] LABS: Troponin I < 0.012 ng/mL (0.000-0.034)
[2024-12-26] MEDS: LORazepam INJ (*CRX) 2 MG/ML VIAL 0.5 MG IV PUSH (11:08)
--- NOTE | 2024-12-26 12:13 | ED_ITS ---
HPI - General Adult General Chief complaint: Unspecified Stated complaint: left arm tingling, chest pain, can't swallow Time Seen by Provider: 12/26/24 10:35 History of Present Illness HPI narrative: Patient is an 79-year-old female who presents ER with a multitude of complaints. First complaint is that she is having difficulty swallowing. She thinks it is related to cortex implant in her neck. She sees ENT at [facility] for this issue. She is tolerating oral secretions. She has had no vomiting. She also reports that she has numbness in her arms bilaterally as well as neck pain but is known to have chronic neck issues and has a CT scan with multiple abnormalities highlighted for me to review. She is also having some chest pain throughout the entire chest. No exertional component. No productive cough. No fevers or chills or sweats. Patient is very anxious. She stopped her Lexapro just 3 days ago. Related Data Home Medications ?Medication ?Instructions ?Recorded ?Confirmed ?Last Taken ?Type calcium carbonate (Calcium 600) 600 mg PO BID 07/21/22 12/26/24 Unknown History Allergies Allergy/AdvReac Type Severity Reaction Status Date / Time codeine AdvReac Severe NAUSEA AND Verified 12/26/24 10:41 VOMITING tramadol AdvReac Severe NAUSEA AND Verified 12/26/24 10:41 VOMITING Review of Systems 2 Review of Systems: All systems reviewed & are unremarkable except as noted in HPI and below Constitutional: Constitutional: Reports no additional constitutional complaints ENT: Reports system reviewed and no additional complaints, except as documented Cardiovascular: Cardiovascular: Reports no additional cardiovascular complaints Respiratory: Respiratory: Reports no additional respiratory complaints Gastrointestinal: Gastrointestinal: Reports no additional gastrointestinal complaints [facility] Past Medical History Medical History Osteoporosis Diabetes History of blood clots Hx of goiter removed in Thyroid disorder Hypertension GERD (gastroesophageal reflux disease) Diabetes Arthritis Surgical History Surgical History H/O breast biopsy History of tonsillectomy History of dilatation and curettage History of elbow surgery History of throat surgery History of thyroplasty H/O tooth extraction Hx of cholecystectomy Hx of hysterectomy Hx of thyroidectomy 2019 Hx of cataract surgery 2022 Family History Family History Father Carcinoma of colon Mother Patient's mother is Hypertension Sibling Patient's sister is in good health Other Hypertension Social History Social History Smoking status: Never smoker Alcohol intake: never Substance use: never Substance use type: does not use Lack of Transportation: No Lack of Food: Never True Current Housing: I Have Housing Concerned About Future Housing: No Difficulty Paying Gas/Electric Bills: YES Difficulty Paying for Meds: No Currently Unemployed: No Education: High School Diploma/GED Difficulty w/ Childcare or Family Care: No Exam 2 Narrative: GENERAL: Well-appearing, well-nourished, and in no acute distress. HEAD: Normocephalic, atraumatic. EYES: PERRL and EOMI. ENT: Mucous membranes moist. Tolerating oral secretions without issue. Normal posterior oropharynx. NECK: Supple. CHEST: Clear to auscultation. No respiratory distress. HEART: Regular rate and rhythm. Normal peripheral pulses. ABDOMEN: Soft, nontender, nondistended. EXTREMITIES: Normal range of motion. No edema. SKIN: Warm, dry, no rash. NEURO: Alert and oriented x3. PSYCH: Normal mood and affect. Course Course Emergency Course: Patient seems to have a lot of anxiety. Her blood pressure was significantly elevated. After administration of home medications vital signs normalized. She has been able to drink while she is here. She has had no vomiting. Her troponins are negative x2. CTA without PE or aortic issue. Patient felt appropriate for discharge home and follow-up with her PCP and ENT. I think she could benefit from anxiety control and I will provide her some Ativan for home. Vital Signs Vital signs: Vital Signs Temperature 97.6 F 12/26/24 09:53 Pulse Rate 61 12/26/24 09:53 Respiratory Rate 20 12/26/24 09:53 Blood Pressure 207/68 H 12/26/24 09:53 Pulse Oximetry 99 12/26/24 09:53 Oxygen Delivery Room Air 12/26/24 09:53 Temperature 97.6 F 12/26/24 09:53 Pulse Rate 59 L 12/26/24 14:31 Respiratory Rate 14 12/26/24 14:31 Blood Pressure 150/62 H 12/26/24 14:31 Pulse Oximetry 97 12/26/24 14:31 Oxygen Delivery Room Air 12/26/24 10:45 Medical Decision Making Vital Signs Vital Signs: Vital Signs Temperature 97.6 F 12/26/24 09:53 Pulse Rate 61 12/26/24 09:53 Respiratory Rate 20 12/26/24 09:53 Blood Pressure 207/68 H 12/26/24 09:53 Pulse Oximetry 99 12/26/24 09:53 Oxygen Delivery Room Air 12/26/24 09:53 Temperature 97.6 F 12/26/24 09:53 Pulse Rate 59 L 12/26/24 14:31 Respiratory Rate 14 12/26/24 14:31 Blood Pressure 150/62 H 12/26/24 14:31 Pulse Oximetry 97 12/26/24 14:31 Oxygen Delivery Room Air 12/26/24 10:45 Lab Data 12/26/24 10:30 12/26/24 10:30 Labs: Lab Results 12/26/24 12/26/24 12/26/24 Range/Units 10:26 10:30 13:32 WBC 13.7 H (4.5-10.0) K/mm3 RBC 4.68 (4.2-5.4) M/mm3 Hgb 14.5 (12.0-15.0) g/dL Hct 43.5 (37.0-47.0) % MCV 92.9 (80-100) fl MCH 31.0 (26-34) pg MCHC 33.3 (32-36) g/dl RDW 12.2 (11.5-14.5) % Plt Count 247 (150-375) k/mm3 MPV 10.3 (7.4-10.4) fl Immature Gran % (Auto) 0.3 (0-0.5) % Neut % (Auto) 43.8 L (45.5-73.1) % Lymph % (Auto) 48.3 H (18.3-44.2) % [place] % (Auto) 5.9 (2.6-8.5) % Eos % (Auto) 1.2 (0-4.4) % Baso % (Auto) 0.5 (0.2-1.2) % Lymph # (Auto) 6.60 H (0.9-3.2) K/mm3 [place] # (Auto) 0.8 H (0.1-0.6) K/mm3 Eos # (Auto) 0.2 (0-0.3) K/mm3 Baso # (Auto) 0.1 (0.0-0.1) K/mm3 Abs Immat Gran (auto) 0.04 H (0.00-0.031) K/mm3 Absolute Neuts (auto) 6.0 (1.3-6.7) K/mm3 Absolute Nucleated RBC 0.000 (0.0-0.012) K/mm3 Nucleated RBC % 0.0 (0.0-0.2) % PT 12.9 (11.1-14.7) Seconds INR 1.0 APTT 24.9 (22.3-36.8) Seconds Sodium 140 (137-145) mmol/L Potassium 3.8 (3.4-5.0) mmol/L Chloride 103 (98-107) mmol/L Carbon Dioxide 29 (22-30) mmol/L Anion Gap 8 (4-12) mmol/L BUN 19 H (7-17) mg/dL Creatinine 0.69 L (0.7-1.0) mg/dL Estim Creat Clear Calc 52 ml/min Estimated GFR > 60 (59 - ) Glucose 107 (65-110) mg/dL POC Capillary Glucose 97 (65-105) mg/dl Calcium 10.4 H (8.4-10.2) mg/dL Total Bilirubin 1.2 (0.2-1.3) mg/dL AST 34 (14-36) U/L ALT 31 (6-35) U/L Alkaline Phosphatase 48 (38-126) U/L Troponin I < 0.012 < 0.012 (0.000-0.034) ng/mL Total Protein 7.5 (6.3-8.2) g/dL Albumin 4.4 (3.5-5.1) g/dL Lipase 101 (23-300) U/L Imaging Data Radiologist's impression: ITS Impressions Chest CTA 12/26/24 12:06 IMPRESSION: 1. Mosaic attenuation in the dependent lungs with subsegmental regions of more lucent air trapping likely related to small airway disease. No pulmonary embolism or other acute cardiopulmonary disease. 2. Moderate intra and extra hepatic biliary ductal dilation which could be related to prior cholecystectomy but is more prominent than typical. Correlate with liver function tests and if clinically indicated could consider MRCP for further evaluation. ECG Data EKG #1: ECG completion date: 12/26/24 ECG completion time: 10:54 EKG Interpretation: tachycardia (111), sinus rhythm, non-specific ST changes and RBBB Discharge Plan Discharge Clinical Impression: Anxiety, Chronic hypertension Patient Disposition: Home Condition: Stable Instructions: Antibiotic Form, Anxiety (ED) Additional Instructions: Please return to the emergency department if you develop severe and persistent chest pain, difficulty breathing, dizziness, leg swelling or if you are coughing up blood as these can be signs of a medical emergency. Please call your doctor for a follow up appointment to determine the need for further testing. Patient Language: Irish Prescriptions: New lorazepam [Ativan] 0.5 mg tablet 0.5 mg PO BID PRN (Reason: anxiety) Qty: 10 0RF No Action ketoconazole 2 % cream 1 applic topical BID PRN (Reason: groin rash) Qty: 30 1RF calcium carbonate [Calcium 600] 600 mg calcium (1,500 mg) tablet 600 mg PO BID triamcinolone acetonide 0.5 % cream 1 applic topical DAILY PRN (Reason: external vaginal irritation) Qty: 15 0RF alcohol swabs [BD Alcohol Swabs] Pads, Medicated 1 pad topical BID PRN (Reason: diabetes) Qty: 200 0RF levothyroxine 75 mcg capsule 75 mcg PO DAILY Qty: 90 3RF (DME) blood-glucose meter [OneTouch Verio Flex meter] Misc See Rx Instructions .Route Qty: 1 0RF Rx Instructions: Use to check blood sugars daily (DME) lancets [OneTouch Delica Plus Lancet] 33 gauge misc See Rx Instructions .Route Qty: 100 1RF Rx Instructions: Use to check blood sugars daily (DME) OneTouch Verio test strips Strip See Rx Instructions .Route Qty: 100 1RF Rx Instructions: Use to check blood sugars daily (DME) 2-Wheeled Walker See Rx Instructions .Route .MEDSUPPLY Qty: 1 0RF Rx Instructions: Use for transportation and gait instability. metoprolol tartrate 50 mg tablet 50 mg PO Q12H Qty: 180 1RF lovastatin 40 mg tablet 40 mg PO DAILY Qty: 90 1RF irbesartan 75 mg tablet 75 mg PO DAILY Qty: 90 1RF metformin 500 mg tablet extended release 24 hr 500 mg PO BID Qty: 180 1RF baclofen 10 mg tablet 10 mg PO DAILY PRN (Reason: muscle spasm) Qty: 90 1RF duloxetine 30 mg capsule,delayed release(DR/EC) 30 mg PO DAILY Qty: 90 1RF albuterol sulfate [Ventolin HFA] 90 mcg/actuation HFA aerosol inhaler 1 inh inhalation Q4H PRN (Reason: shortness of breath or wheezing) Qty: 8.5 0RF Follow-up/Referrals: Joseph Núñez DO [Primary Care Provider] - 1 Week
[2024-12-26] MEDS: IRBESARTAN 75 MG TABLET PO (12:41)
[2024-12-26] MEDS: METOPROLOL TARTRATE 50 MG TAB PO (12:43)
--- NOTE | 2024-12-26 13:25 | ECG_ITS ---
Test Date: 2024-12-26 10:54:54 Measurements Intervals [place] Rate: 111 P: 78 WY: 100 QRS: -63 QRSD: 141 T: -13 QT: 348 QTc: 473 Interpretive Statements SINUS TACHYCARDIA WITH SHORT [place] INTERVAL RIGHT BUNDLE BRANCH BLOCK LEFT ANTERIOR FASCICULAR BLOCK CANNOT R/O SEPTAL INFARCT, AGE INDETERMINATE BASELINE ARTIFACT- I, II, III, AVR, AVL, AVF, V2, V4-V6 ABNORMAL ECG Compared to ECG 12/26/2024 10:20:33 HEART RATE HAS INCREASED LEFT ANTERIOR FASCICULAR BLOCK NOW PRESENT Electronically Signed On 12-26-2024 13:33:41 CDT by Sumit Pizano D.O.
[2024-12-26 14:05] LABS: Troponin I < 0.012 ng/mL (0.000-0.034)
--- NOTE | 2024-12-27 10:34 | ECG_ITS ---
Test Date: 2024-12-26 13:41:19 Measurements Intervals [place] Rate: 55 P: 25 [place]: 157 QRS: -55 QRSD: 142 T: -5 QT: 430 QTc: 412 Interpretive Statements SINUS BRADYCARDIA RIGHT BUNDLE BRANCH BLOCK LEFT ANTERIOR FASCICULAR BLOCK BASELINE ARTIFACT- II, III, AVR, AVF ABNORMAL ECG Compared to ECG 12/26/2024 10:54:54 HEART RATE HAS DECREASED Electronically Signed On 12-27-2024 10:52:22 CDT by Sumit Pizano D.O.
== END 2024-12-26 15:19 | disposition home or self-care (01) ==
PROVIDERS: Emergency Provider Emergency Medicine; PCP Internal Medicine
DX: F41.9 Anxiety disorder, unspecified (principal); I10 Essential (primary) hypertension; R07.9 Chest pain, unspecified; E11.9 Type 2 diabetes mellitus without complications; E89.0 Postprocedural hypothyroidism; K21.9 Gastro-esophageal reflux disease without esophagitis; M81.0 Age-related osteoporosis without current pathological fracture; M19.90 Unspecified osteoarthritis, unspecified site; Z90.49 Acquired absence of other specified parts of digestive tract; Z90.710 Acquired absence of both cervix and uterus; Z98.49 Cataract extraction status, unspecified eye; R93.2 Abnormal findings on diagnostic imaging of liver and biliary tract; R00.1 Bradycardia, unspecified; R00.0 Tachycardia, unspecified; I45.2 Bifascicular block; R94.31 Abnormal electrocardiogram [ECG] [EKG]; Z79.899 Other long term (current) drug therapy; Z79.84 Long term (current) use of oral hypoglycemic drugs
CPT/HCPCS: 36415; 71275; 80053; 82948; 83690; 84484; 85025; 85610; 85730; 93005; 96374; 99284; A9270; J2060; Q9967

== ENCOUNTER 2025-01-17 23:21 | Emergency (ER) | payer MEDICARE, SELFPAY ==
--- OUTSIDE RECORDS SUMMARY | 2005-05-04 09:15 | XMS_ITS | Continuity of Care Document ---
Author Organization [facility] Address [address] [place] [address] Phone Care Team Providers Care Embossing Press Operator Molded Goods Name Role Phone Barrett Haddad MD Unavailable Unavailable Advance Directives Directive Yes / No Effective Date File Name No Information Encounters Encounter Description Practice Location Reason(s) For Visit Diagnoses Date Provider Providers Copied on Encounter [facility], [address], [place], [place], [id number], [place] tel:[phone] [facility] No Information 4-200 [address] Boo Hyde. [address], [address], [place], [place], [id number], [place]. tel:[phone] Family History Family Member Type Diagnosis Age At Onset No Information Payers Payer name Insurance type Covered republican ID Authoriza tion(s) No Information Social History Type Description Quantity Date Captured Comments Sex Female Smoking Status No Information Chief Complaint And Reason For Visit No Information Reason For Referral Reason For Referral No Information History Of Present Illness Encounter Date Complaint History Of Prese nt Illness No Information Functional Status Date Functional Assessmen t No Information Instructions Date Instruction Additional Infor mation No Information Assessments Type Assessment Date No Information Patient Care Teams Name Effective Dates (start - stop) Status Members No Information
--- NOTE | ~2025-01-17 | XR_ITS ---
EXAMINATION: XR hip RT 2V w AP pelvis, 01/18/2025 3:29 CDT HISTORY: Hip pain COMPARISON: No comparisons available. Findings: No acute fracture or malalignment. No significant degenerative changes. Soft tissues unremarkable. Impression: No acute fracture or malalignment. Reviewed, dictated and finalized at location A. Impression: No acute fracture or malalignment.
[2025-01-17 23:22] VITALS: BP 148/59; PULSE 70; RESP 16; TEMP 36.4; O2SAT 98
--- NOTE | 2025-01-18 01:12 | PC.NURSE ---
Upon taking pt to room RN attempted to get pt in bed and changed into gown but pt was unable to tolerate sitting in bed. Pt requested to remain in wheelchair until she can get medication for pain or get relief from symptoms. Pt remains alert and oriented. Family at bedside. Pt denies additional needs at this time.
--- OUTSIDE RECORDS SUMMARY | 2025-01-18 01:30 | XMS_ITS | Encounter Summary ---
Author Organization [facility] Health Address [address] [place] [address] Care Team Providers Care Summer Counselor Name Role Phone Hola Johnston DO Primary Care Provider [phone] Dasha Oden APRN-DENTAL EQUIPMENT MECHANIC Primary Care Provider [phone] Encounter Details Date Type Department Care Team (Late Contact Info) Description 01/12/2024 Telephone [facility] - ENT [address] [place] [phone] Annie Ramírez, CONTOUR SANDER [address] [place] [address] [place] [phone] Social History Tobacco Use Types Packs/Day Years [...] Encounters Date Type Department Care Team (Late Contact Info) Description 02/25/2025 3:20 PM CDT Office Visit [facility] - CORPORATE STRATEGY ANALYST [address] [place] [phone] Payal Richey MD [address] [facility] [address] [place] [address] documented as of this encounter Visit Diagnoses Not on filedocumented in this encounter Care Teams Summer Counselor Relationship Specialty Start Date End Date Hola Johnston DO [address] [place], [place] [id number] PCP - General Internal Medicine 10/20/23 11/24/24 Dasha Oden APRN-[facility] [address] [facility] [address] [place] [address] PCP - General Nurse Practitioner 11/25/24 documented as of this encounter
--- OUTSIDE RECORDS SUMMARY | 2025-01-18 01:30 | XMS_ITS | Patient Health Record ---
Author Organization [facility] [employer] [facility] Address [address] [place] [address] Care Team Providers Care Salvage Mechanic Name Role Phone Cecille FOREMAN, Dasha Primary Care Provider Barbie Urena Unavailable [phone] Allergies Allergen (clinical drug ingredient) Drug/Non Drug Allergy documented on EMR Reaction Allergy Type Onset Date Status codeine Codeine Unknown Drug Allergy Active tramadol traMADol Unknown Drug Allergy Active Reason For Referral No Information Social History Sex Assigned At : Social History Observation Description Sex Assigned At Female Plan Of Treatment Next Appt Details Provider Name:Barbie Gonzalez , 02/06/2025 03:00:00 PM, [address], [place], [address], Insurance Providers Payer Name Payer Address Payer Phone Subscriber Number Group Number Insured Name Patient Relationship to Insured Coverage Start Date Coverage End Date [employer] Medicare Replacemen t/Advantag e - o [address] [address] [place] [address] [id number] TONI SCHAEFER Self - patient is the insured Medical (General) History Medical History History ICD Code Osteoporosis Diabetes Thyroid disorder HTN GERD Arthritis
--- OUTSIDE RECORDS SUMMARY | 2025-01-18 01:30 | XMS_ITS | Clinical Summary ---
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 Gender Identity Not on file Sexual Orientation [...] ORDERABLES F inal Result [facility] Department [place] [address] from Last 3 Months or Most Recently Relevant to Health Maintenance Insurance [employer] CHOICE MEDICARE PPO HU[employer] CHOICE MEDICARE PPO Advance Directives For more information, please contact: [phone] * Full Code (Latest Code Status on File) Date Activated Date Inactivated Comments 01/06/2022 2:49 PM 01/08/2022 6:35 PM Care Teams Colon Therapist Relationship Specialty Start Date End Date Yessy Alvarez MD [address] [place] [address] [address] PCP - General Family Medicine 09/28/21
--- OUTSIDE RECORDS SUMMARY | 2025-01-18 01:30 | XMS_ITS | Clinical Summary ---
Author Organization [facility] [employer] Address [address] [place] [address] Care Team Providers Care Medical/Surgery Registered Nurse Name Role Phone Dasha Oden GEOLOGICAL TECHNICIAN-CREDIT CARD CONTROL CLERK Primary Care Provider [phone] Source Comments [facility],non-owned Affiliates and Associated Physician Practices is amultiple site organization consisting of ambulatory clinics and hospital sitesin [place], [place], [place] and [place]. This disclosure is being madepursuant to the Care Everywhere program and may not contain all information available regarding this patient. Last updated 18.[facility] [employer] Allergies Active Allergy Reactions Criticality Noted Date [...] Encounters Date Type Department Care Team Description 12/30/2024 Travel 11/12/2024 Travel 10/30/2024 Telephone [facility] - ENT [address] [place] [phone] Sonu Morales MD Appointment 10/25/2024 Telephone [facility]NT [address] [place] [phone] Arian Finney PA Appointment 10/25/2024 Telephone [facility] - ENT [address] [place] [phone] Arian Finney PA Appointment from Last 3 [...] Care Team (Late st Contact Info) Description 02/25/2025 3:20 PM CDT Office Visit [facility] - OUTSOLE ROUNDER [address] [facility] [address] [place] [address] Payal Richey MD [address] [facility] [address] [place] [address] Health Maintenance Due Date Last [...] this topic Medical Devices Implanted Type Area Cyber Defense Analyst Device Identifier Shelf Expiration Date Model / Serial / Lot Patch Cv Thk.4mm 9x2cm Grtx Strl - [id number] Implanted:Qty: 1 on 11/03/2023 by Sonu Morales MD at [facility] [employer] [facility] 04/14/2028 [id number] / [id number] / Insurance HU[employer]LL[employer] Advance Directives * Full Code (Latest Code Status on File) Date Activated Date Inactivated Comments 11/03/2023 3:02 PM 11/04/2023 3:12 PM Care Teams Medical/Surgery Registered Nurse Relationship Specialty Start Date End Date Dasha Oden APRN-CREDIT CARD CONTROL CLERK [address] [address] PCP - General Nurse Practitioner 11/25/24
--- OUTSIDE RECORDS SUMMARY | 2025-01-18 01:30 | XMS_ITS | Clinical Summary ---
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
[2025-01-18 01:53] LABS: Hematocrit 38.6 % (37.0-47.0); Hemoglobin 12.7 g/dL (12.0-15.0); Immature Granulocyte Percent A 0.3 % (0-0.5); Lymphocytes Absolute Auto 4.22 K/mm3 (0.9-3.2); Mean Corpuscular HGB Conc 32.9 g/dl (32-36); Mean Corpuscular Hemoglobin 31.0 pg (26-34); Mean Corpuscular Volume 94.1 fl (80-100); Nucleated Red Blood Cells Absolute Auto 0.000 K/mm3 (0.0-0.012); Nucleated Red Blood Cells Perc 0.0 % (0.0-0.2); Platelet Count Result 222 k/mm3 (150-375); Red Blood Count 4.10 M/mm3 (4.2-5.4); White Blood Count 11.2 K/mm3 (4.5-10.0)
[2025-01-18 02:03] LABS: Alanine Aminotransferase 21 U/L (6-35); Albumin Level 4.4 g/dL (3.5-5.1); Alkaline Phosphatase 50 U/L (38-126); Anion Gap 7 mmol/L (4-12); Aspartate Amino Transferase 27 U/L (14-36); Bilirubin,Total 0.4 mg/dL (0.2-1.3); Blood Urea Nitrogen 22 mg/dL (7-17); Calcium 10.1 mg/dL (8.4-10.2); Carbon Dioxide 28 mmol/L (22-30); Chloride 103 mmol/L (98-107); Estimated CRCL calculation 55 ml/min; Estimated Glomerular Filt Rate > 60; Glucose 143 mg/dL (65-110); Lipase 67 U/L (23-300); Potassium 3.6 mmol/L (3.4-5.0); Sodium 138 mmol/L (137-145); Total Protein 7.4 g/dL (6.3-8.2)
--- NOTE | 2025-01-18 02:26 | PC.NURSE ---
When attempting to administer Po Tylennol Patient refused to take full amount after requestion Tylennol. Pt took one half tablet equaling 250 mg
--- NOTE | 2025-01-18 02:34 | ECG_ITS ---
Test Date: 2025-01-18 02:46:56 Measurements Intervals [place] Rate: 82 P: 44 [place]: 152 QRS: -50 QRSD: 150 T: 3 QT: 406 QTc: 475 Interpretive Statements SINUS RHYTHM WITH FREQUENT SUPRAVENTRICULAR PREMATURE COMPLEXES RIGHT BUNDLE BRANCH BLOCK LEFT ANTERIOR FASCICULAR BLOCK BASELINE ARTIFACT- I, II, III, AVR, AVL, AVF, V1-V6 ABNORMAL ECG Compared to ECG 12/26/2024 13:41:19 HEART RATE HAS INCREASED Electronically Signed On 01-18-2025 08:13:15 CDT by Sumit Pizano D.O.
--- NOTE | 2025-01-18 03:22 | ED_ITS ---
HPI - General Adult General Chief complaint: Abdominal Pain Stated complaint: right hip to belly to knee pain Time Seen by Provider: 01/18/25 01:24 History of Present Illness HPI narrative: This is a 79 year female presenting with right hip pain. Patient has chronic pain throughout most of her body. She has recently been started on Cymbalta. She takes Tylenol 3 times a day at home for her pain. This morning she developed pain in her right hip that extends down her leg to her ankle. Pain is worse with movement. It is intense. She has taken Tylenol with minimal relief. She has never had sciatica before. She did not have any traumatic injuries. She does not have any fevers, trauma, cancer, bowel incontinence or urinary retention. No weakness leg. No loss of sensation. Note numbness to the saddle region. Related Data Home Medications ?Medication ?Instructions ?Recorded ?Confirmed ?Last Taken ?Type calcium carbonate (Calcium 600) 600 mg PO BID 07/21/22 12/26/24 Unknown History Allergies Allergy/AdvReac Type Severity Reaction Status Date / Time codeine AdvReac Severe NAUSEA AND Verified 12/26/24 10:41 VOMITING tramadol AdvReac Severe NAUSEA AND Verified 12/26/24 10:41 VOMITING PMFSH Past Medical History Medical History Osteoporosis Diabetes History of blood clots Hx of goiter removed in Thyroid disorder Hypertension GERD (gastroesophageal reflux disease) Diabetes Arthritis Surgical History Surgical History H/O breast biopsy History of tonsillectomy History of dilatation and curettage History of elbow surgery History of throat surgery History of thyroplasty H/O tooth extraction Hx of cholecystectomy Hx of hysterectomy Hx of thyroidectomy 2019 Hx of cataract surgery 2022 Family History Family History Father Carcinoma of colon Mother Patient's mother is Hypertension Sibling Patient's sister is in good health Other Hypertension Social History Social History Smoking status: Never smoker Alcohol intake: never Substance use: never Substance use type: does not use Lack of Transportation: No Lack of Food: Never True Current Housing: I Have Housing Concerned About Future Housing: No Difficulty Paying Gas/Electric Bills: YES Difficulty Paying for Meds: No Currently Unemployed: No Education: High School Diploma/GED Difficulty w/ Childcare or Family Care: No Exam 2 Narrative: APPEARANCE: No apparent distress. Head: atraumatic. EYES: EOMI, NOSE: Atraumatic NECK: Trachea midline RESPIRATORY: No increased rate of breathing CARDIOVASCULAR: RRR, no peripheral edema ABDOMINAL: Non-distended soft nontender no guarding or rebound MUSCULOSKELETAl: Tenderness to palpation over the right glute without overlying skin changes. Straight leg lift on the right is positive. Negative on the left. Leg is neurovascularly intact with strong pulses and good cap refill NEURO: Alert. Moving 4/4 extremities SKIN:: Warm, dry. Normal color PSYCHIATRIC: Normal affect Course Vital Signs Vital signs: Vital Signs Temperature 97.6 F 01/17/25 23:22 Pulse Rate 70 01/17/25 23:22 Respiratory Rate 16 01/17/25 23:22 Blood Pressure 148/59 H 01/17/25 23:22 Pulse Oximetry 98 01/17/25 23:22 Oxygen Delivery Room Air 01/17/25 23:22 Temperature 97.6 F 01/17/25 23:22 Pulse Rate 70 01/17/25 23:22 Respiratory Rate 16 01/17/25 23:22 Blood Pressure 148/59 H 01/17/25 23:22 Pulse Oximetry 98 01/17/25 23:22 Oxygen Delivery Room Air 01/17/25 23:22 Medical Decision Making [facility] Narrative Medical decision making narrative: -Course: 79-year-old female presenting with right-sided hip pain radiating down her leg. Presentation consistent with sciatica. No red flags on history or physical. Patient given Toradol Tylenol and a lidocaine patch. Lab work was ordered per nursing protocol not indicated in this situation. Regardless it was unremarkable. Pelvis X-ray showed degenerative changes but no acute fractures. Patient admits that she has many issues with pain including chronic neck pain / arm pain / chest pain and this is being handled by her pcp/neurosurgery. I asked if we or addressing any of those concerns today and they said no they want to focus solely on her hip pain. My interpretation the X-ray of the hip showed degenerative changes but no acute fractures. Patient was treated with Tylenol lidocaine patch 1 dose of Toradol. Pain was improved. She will be discharged with pain medication instructed follow-up with her primary care physician. -DDX includes but is not limited to: Sciatica, arthritis, exacerbation of chronic pain, cauda equina -Co-morbidities complicating care: Chronic pain Vital Signs Vital Signs: Vital Signs Temperature 97.6 F 01/17/25 23:22 Pulse Rate 70 01/17/25 23:22 Respiratory Rate 16 01/17/25 23:22 Blood Pressure 148/59 H 01/17/25 23:22 Pulse Oximetry 98 01/17/25 23:22 Oxygen Delivery Room Air 01/17/25 23:22 Temperature 97.6 F 01/17/25 23:22 Pulse Rate 70 01/17/25 23:22 Respiratory Rate 16 01/17/25 23:22 Blood Pressure 148/59 H 01/17/25 23:22 Pulse Oximetry 98 01/17/25 23:22 Oxygen Delivery Room Air 01/17/25 23:22 Lab Data 01/18/25 01:41 01/18/25 01:41 Labs: Lab Results 01/18/25 Range/Units 01:41 WBC 11.2 H (4.5-10.0) K/mm3 RBC 4.10 L (4.2-5.4) M/mm3 Hgb 12.7 (12.0-15.0) g/dL Hct 38.6 (37.0-47.0) % MCV 94.1 (80-100) fl MCH 31.0 (26-34) pg MCHC 32.9 (32-36) g/dl RDW 12.1 (11.5-14.5) % Plt Count 222 (150-375) k/mm3 MPV 10.1 (7.4-10.4) fl Immature Gran % (Auto) 0.3 (0-0.5) % Neut % (Auto) 53.5 (45.5-73.1) % Lymph % (Auto) 37.8 (18.3-44.2) % [place] % (Auto) 6.0 (2.6-8.5) % Eos % (Auto) 2.0 (0-4.4) % Baso % (Auto) 0.4 (0.2-1.2) % Lymph # (Auto) 4.22 H (0.9-3.2) K/mm3 [place] # (Auto) 0.7 H (0.1-0.6) K/mm3 Eos # (Auto) 0.2 (0-0.3) K/mm3 Baso # (Auto) 0.1 (0.0-0.1) K/mm3 Abs Immat Gran (auto) 0.03 (0.00-0.031) K/mm3 Absolute Neuts (auto) 6.0 (1.3-6.7) K/mm3 Absolute Nucleated RBC 0.000 (0.0-0.012) K/mm3 Nucleated RBC % 0.0 (0.0-0.2) % Sodium 138 (137-145) mmol/L Potassium 3.6 (3.4-5.0) mmol/L Chloride 103 (98-107) mmol/L Carbon Dioxide 28 (22-30) mmol/L Anion Gap 7 (4-12) mmol/L BUN 22 H (7-17) mg/dL Creatinine 0.74 (0.7-1.0) mg/dL Estim Creat Clear Calc 55 ml/min Estimated GFR > 60 (59 - ) Glucose 143 H (65-110) mg/dL Calcium 10.1 (8.4-10.2) mg/dL Total Bilirubin 0.4 (0.2-1.3) mg/dL AST 27 (14-36) U/L ALT 21 (6-35) U/L Alkaline Phosphatase 50 (38-126) U/L Total Protein 7.4 (6.3-8.2) g/dL Albumin 4.4 (3.5-5.1) g/dL Lipase 67 (23-300) U/L Discharge Plan Discharge Clinical Impression: Acute hip pain Patient Disposition: Home Condition: Stable Instructions: Antibiotic Form, Hip Pain (ED) Additional Instructions: Please use Tylenol, baclofen, and lidocaine patches for pain. You can use oxycodone for breakthrough pain. Please follow-up with your primary care physician in 3-5 days. If you develop severe pain or lower extremity weakness, urinary retention or bowel incontinence he can return to the ED for re- evaluation. Patient Language: Peruvian Prescriptions: New acetaminophen 500 mg tablet 1,000 mg PO TID PRN (Reason: jonathan) 7 Days Qty: 42 0RF lidocaine 5 % adhesive patch,medicated 1 patch topical DAILY Qty: 15 0RF Rx Instructions: leave on most painful area for up to 12 hrs oxycodone 5 mg tablet 5 mg PO Q4H PRN (Reason: pain) Qty: 14 0RF No Action ketoconazole 2 % cream 1 applic topical BID PRN (Reason: groin rash) Qty: 30 1RF calcium carbonate [Calcium 600] 600 mg calcium (1,500 mg) tablet 600 mg PO BID triamcinolone acetonide 0.5 % cream 1 applic topical DAILY PRN (Reason: external vaginal irritation) Qty: 15 0RF lorazepam [Ativan] 0.5 mg tablet 0.5 mg PO BID PRN (Reason: anxiety) Qty: 10 0RF alcohol swabs [BD Alcohol Swabs] Pads, Medicated 1 pad topical BID PRN (Reason: diabetes) Qty: 200 0RF levothyroxine 75 mcg capsule 75 mcg PO DAILY Qty: 90 3RF (DME) blood-glucose meter [OneTouch Verio Flex meter] Misc See Rx Instructions .Route Qty: 1 0RF Rx Instructions: Use to check blood sugars daily (DME) lancets [OneTouch Delica Plus Lancet] 33 gauge misc See Rx Instructions .Route Qty: 100 1RF Rx Instructions: Use to check blood sugars daily (DME) OneTouch Verio test strips Strip See Rx Instructions .Route Qty: 100 1RF Rx Instructions: Use to check blood sugars daily (DME) 2-Wheeled Walker See Rx Instructions .Route .MEDSUPPLY Qty: 1 0RF Rx Instructions: Use for transportation and gait instability. metoprolol tartrate 50 mg tablet 50 mg PO Q12H Qty: 180 1RF lovastatin 40 mg tablet 40 mg PO DAILY Qty: 90 1RF irbesartan 75 mg tablet 75 mg PO DAILY Qty: 90 1RF metformin 500 mg tablet extended release 24 hr 500 mg PO BID Qty: 180 1RF baclofen 10 mg tablet 10 mg PO DAILY PRN (Reason: muscle spasm) Qty: 90 1RF duloxetine 30 mg capsule,delayed release(DR/EC) 30 mg PO DAILY Qty: 90 1RF albuterol sulfate [Ventolin HFA] 90 mcg/actuation HFA aerosol inhaler 1 inh inhalation Q4H PRN (Reason: shortness of breath or wheezing) Qty: 8.5 0RF nystatin 100,000 unit/gram ointment 1 applic topical BID Qty: 30 0RF Rx Instructions: Mix with triamcinolone ointment before applying trazodone 100 mg tablet 100 mg PO QHS PRN (Reason: insomnia) Qty: 90 1RF Follow-up/Referrals: Dasha Oden [employer] [Primary Care Provider, Internal Medicine]
[2025-01-18] MEDS: KETOROLAC 15 MG/ML VIAL (*BKC) IV PUSH (03:41)
[2025-01-18] MEDS: LIDOCAINE 5% PATCH 1 PATCH TRANSDERM (03:44)
== END 2025-01-18 04:38 | disposition home or self-care (01) ==
PROVIDERS: Emergency Provider Emergency Medicine; PCP Nurse Practitioner
DX: M25.551 Pain in right hip (principal); I10 Essential (primary) hypertension; E11.9 Type 2 diabetes mellitus without complications; E89.0 Postprocedural hypothyroidism; K21.9 Gastro-esophageal reflux disease without esophagitis; M81.0 Age-related osteoporosis without current pathological fracture; M19.90 Unspecified osteoarthritis, unspecified site; Z90.49 Acquired absence of other specified parts of digestive tract; Z90.710 Acquired absence of both cervix and uterus; Z98.49 Cataract extraction status, unspecified eye; Z79.84 Long term (current) use of oral hypoglycemic drugs; Z79.899 Other long term (current) drug therapy; I45.10 Unspecified right bundle-branch block; I49.1 Atrial premature depolarization; I44.4 Left anterior fascicular block
CPT/HCPCS: 36415; 73502; 80053; 83690; 85025; 93005; 96374; 99284; A9270; J1885

== ENCOUNTER 2025-01-21 21:35 | Observation (INO) | payer MEDICARE, SELFPAY ==
--- NOTE | ~2025-01-21 | CT_ITS ---
EXAM: CT brain wo con - 01/22/2025 3:30 CDT History: 79 years old Female with fall COMPARISON: 08/08/2018 PROCEDURE: CT of the head without contrast. Axial, sagittal and coronal reformatted planes were evaluated. Automatic exposure control was used for this study. FINDINGS: BRAIN PARENCHYMA: No acute hemorrhage. No mass effect or herniation. Reyes-white matter differentiation is maintained. Mild chronic volume loss. Scattered hypodensities in subcortical and periventricular white matter, likely representing chronic microvascular ischemic changes in this age group. Atherosc lerotic calcification of the intracranial vessels is noted. VENTRICLES/ EXTRA-AXIAL SPACES: No hydrocephalus or extra-axial fluid collection. EXTRACRANIAL STRUCTURES: No calvarial fracture. IMPRESSION: No evidence for acute intracranial hemorrhage or calvarial fracture. Reviewed, dictated and finalized at location N.
--- NOTE | ~2025-01-21 | XR_ITS ---
EXAM/ PROCEDURE: XR hip RT 2V w AP pelvis - 01/21/2025 23:50 CDT HISTORY: 79 years old Female with fall COMPARISON: None available TECHNIQUE: Three view(s) FINDINGS/ IMPRESSION: There are no fractures or dislocations.Joint spaces are within normal limits. Reviewed, dictated and finalized at location N.
--- NOTE | ~2025-01-21 | CT_ITS ---
EXAM/PROCEDURE: CT hip RT wo con 01/22/2025 2:26 CDT HISTORY: pain, poss fx COMPARISON: Abdomen radiograph dated None available TECHNIQUE: Axial CT of the right hip was obtained. Coronal and sagittal reformats were obtained from axial data set. FINDINGS: There are no fractures or dislocations. Visualized soft tissue are within normal limits. Joint space narrowing, subchondral sclerosis, subchondral cyst formation and osteophyte formation, compatible with moderate osteoarthritis. IMPRESSION: No fracture. Reviewed, dictated and finalized at location N. IMPRESSION: No fracture.
--- NOTE | ~2025-01-21 | XR_ITS ---
EXAMINATION: XR chest 2V DATE: 01/21/2025 22:47 INDICATION: Chest pain TECHNIQUE: frontal and lateral views of the chest were obtained. COMPARISON: Chest CT dated 12/26/2024 FINDINGS: Indistinct interstitial pattern and mild airspace opacities in the left mid and bilateral lower lung zones which could represent mild pulmonary edema or pneumonia. No pleural effusion or pneumothorax. Heart size is normal. Calcified left hilar lymph nodes consistent with old granulomatous disease. Moderate scattered degenerative skeletal changes in the spine and both shoulders. IMPRESSION: 1. Interstitial and airspace opacities in the left mid and bilateral lower lung zones which could represent pulmonary edema or pneumonia. Reviewed, dictated and finalized at location A.
--- NOTE | ~2025-01-21 | XR_ITS ---
EXAMINATION: XR ankle RT min 3V DATE: 01/21/2025 22:47 INDICATION: Right ankle pain post fall TECHNIQUE: Anteroposterior, oblique, mortise, and lateral views of the right ankle were obtained. COMPARISON: None. FINDINGS: Alignment is normal. No fracture. Joint spaces are relatively preserved. Achilles and plantar calcaneal spurs. There is a linear calcific density projecting over the soft tissues gallbladder the tip the medial malleolus and medial to the head of the talus with configuration suggesting vascular calcific ation. Soft tissue swelling about the lateral malleolus. No ankle joint effusion. IMPRESSION: 1. No acute osseous abnormality. Reviewed, dictated and finalized at location A.
[2025-01-21 21:34] VITALS: PULSE 98; RESP 21; TEMP 37.2; O2SAT 99
--- NOTE | 2025-01-21 21:40 | ECG_ITS ---
Test Date: 2025-01-21 21:41:45 Measurements Intervals [place] Rate: 113 P: 98 NM: 113 QRS: -74 QRSD: 142 T: 8 QT: 382 QTc: 524 Interpretive Statements SINUS TACHYCARDIA WITH SHORT NM INTERVAL RIGHT BUNDLE BRANCH BLOCK [120+ ms QRS DURATION, UPRIGHT V1, 40+ ms S IN I/aVL/V4/V5/V6] LEFT ANTERIOR FASCICULAR BLOCK [QRS AXIS <= -45, QR IN I, RS IN II] MINIMAL VOLTAGE CRITERIA FOR LVH, CONSIDER NORMAL VARIANT [MEETS CRITERIA IN ONE OF: R(aVL), S(V1), R(V5), R(V5/V6)+S(V1)] POSSIBLE SEPTAL MYOCARDIAL INFARCTION , OF INDETERMINATE AGE [30 ms Q WAVE IN V1/V2] ABNORMAL ECG Electronically Signed On 01-22-2025 11:10:41 CDT by George Hoover M.D.
[2025-01-21 21:59] LABS: Hematocrit 40.7 % (37.0-47.0); Hemoglobin 13.6 g/dL (12.0-15.0); Immature Granulocyte Percent A 0.3 % (0-0.5); Lymphocytes Absolute Auto 3.27 K/mm3 (0.9-3.2); Mean Corpuscular HGB Conc 33.4 g/dl (32-36); Mean Corpuscular Hemoglobin 31.2 pg (26-34); Mean Corpuscular Volume 93.3 fl (80-100); Nucleated Red Blood Cells Absolute Auto 0.000 K/mm3 (0.0-0.012); Nucleated Red Blood Cells Perc 0.0 % (0.0-0.2); Platelet Count Result 246 k/mm3 (150-375); Red Blood Count 4.36 M/mm3 (4.2-5.4); White Blood Count 11.1 K/mm3 (4.5-10.0)
[2025-01-21 22:12] LABS: Alanine Aminotransferase 23 U/L (6-35); Albumin Level 4.2 g/dL (3.5-5.1); Alkaline Phosphatase 62 U/L (38-126); Anion Gap 9 mmol/L (4-12); Aspartate Amino Transferase 33 U/L (14-36); Bilirubin,Total 0.5 mg/dL (0.2-1.3); Blood Urea Nitrogen 16 mg/dL (7-17); Calcium 10.2 mg/dL (8.4-10.2); Carbon Dioxide 25 mmol/L (22-30); Chloride 103 mmol/L (98-107); Estimated CRCL calculation 52 ml/min; Estimated Glomerular Filt Rate > 60; Glucose 193 mg/dL (65-110); Lipase 58 U/L (23-300); Potassium 3.7 mmol/L (3.4-5.0); Sodium 137 mmol/L (137-145); Total Protein 7.4 g/dL (6.3-8.2)
--- NOTE | 2025-01-21 22:15 | PC.NURSE ---
per pt daughter pt can sometimes be difficult. She has bipolar and schizo disorders. Daughter Josette Grubbs Son Kody Grubbs
[2025-01-21 22:20] LABS: INR 1.0; Partial Thromboplastin Time 27.2 Seconds (22.3-36.8); Prothrombin Time 12.9 Seconds (11.1-14.7)
[2025-01-21 22:22] LABS: Troponin I < 0.012 ng/mL (0.000-0.034)
--- NOTE | 2025-01-21 22:34 | ED_ITS ---
HPI - Fall General Chief Complaint: Fall Stated Complaint: FALL W/RIGHT HIP PAIN & KNOT TO R HEAD Time Seen by Provider: 01/21/25 22:25 History of Present Illness HPI Narrative: This is an 79-year-old female with history of diabetes, hyperlipidemia, spinal stenosis who presents to the ED for a fall. Patient states that she went to go get her mail when her right leg gave out causing her to fall onto her left side. Denies loss of consciousness, preceding symptoms. She did hit her head. She is not on any blood thinners. She reports right ankle pain right hip pain at this time. She was seen in this ED for right hip pain a few days ago he was diagnosed with musculoskeletal pain. Denies any trauma at that time. Related Data Home Medications ?Medication ?Instructions ?Recorded ?Confirmed ?Last Taken ?Type calcium carbonate (Calcium 600) 600 mg PO BID 07/21/22 12/26/24 Unknown History Allergies Allergy/AdvReac Type Severity Reaction Status Date / Time codeine AdvReac Severe NAUSEA AND Verified 01/22/25 03:26 VOMITING tramadol AdvReac Severe NAUSEA AND Verified 01/22/25 03:26 VOMITING Review of Systems 2 Review of Systems: Gen.: Denies fevers or chills Eyes: Denies eye pain or visual change ENT: Denies congestion Respiratory: Denies shortness of breath or cough CV: Denies chest pain or palpitations GI: Denies abdominal pain nausea, emesis or diarrhea denies burning, urgency, frequency or hematuria Musculoskeletal: As per HPI Neuro: Denies numbness, tingling, weakness or focal weakness Skin: Denies rash Except as documented, all other systems reviewed and negative [facility] Past Medical History Medical History Osteoporosis Diabetes History of blood clots Hx of goiter removed in Thyroid disorder Hypertension GERD (gastroesophageal reflux disease) Diabetes Arthritis Surgical History Surgical History H/O breast biopsy History of tonsillectomy History of dilatation and curettage History of elbow surgery History of throat surgery History of thyroplasty H/O tooth extraction Hx of cholecystectomy Hx of hysterectomy Hx of thyroidectomy 2019 Hx of cataract surgery 2022 Family History Family History Father Carcinoma of colon Mother Patient's mother is Hypertension Sibling Patient's sister is in good health Other Hypertension Social History Social History Smoking status: Never smoker Alcohol intake: never Substance use: never Substance use type: does not use Lack of Transportation: No Lack of Food: Never True Current Housing: I Have Housing Concerned About Future Housing: No Difficulty Paying Gas/Electric Bills: YES Difficulty Paying for Meds: No Currently Unemployed: No Education: High School Diploma/GED Difficulty w/ Childcare or Family Care: No Exam 2 Narrative: APPEARANCE: No acute distress, nontoxic, resting in bed EYES: EOMI HEENT: Normocephalic, OMM. Abrasion mild tenderness over the left parietal scalp RESPIRATORY: No respiratory distress Clear to auscultation bilaterally with no rhonchi wheezing or rales. CARDIOVASCULAR: Regular rate and rhythm without murmurs rubs or gallops. ABDOMINAL: Soft, nontender, nondistended, no rebound or guarding MUSCULOSKELETAl: Tenderness palpation over the right lateral malleolus with overlying swelling, no ecchymosis. Tenderness to palpation to the right lateral hip. NEURO: Awake and alert. Following commands, speech normal, no focal deficits SKIN:: Warm, dry. No rashes lesions or abrasions PSYCHIATRIC: Normal affect/mood, Course Vital Signs Vital signs: Vital Signs Temperature 98.9 F 01/21/25 21:34 Pulse Rate 98 01/21/25 21:34 Respiratory Rate 21 H 01/21/25 21:34 Pulse Oximetry 99 01/21/25 21:34 Oxygen Delivery Room Air 01/21/25 21:34 Temperature 98.9 F 01/21/25 21:34 Pulse Rate 61 01/22/25 03:21 Respiratory Rate 14 01/22/25 03:21 Blood Pressure 148/52 H 01/22/25 03:21 Pulse Oximetry 95 01/22/25 03:21 Oxygen Delivery Nasal Cannula 01/22/25 01:49 Oxygen Flow Rate 1 01/22/25 01:49 MDM - Fall MDM Narrative Medical decision making narrative: 79-year-old female who presents to the ED for a fall with right hip and right ankle pain. On initial evaluation, patient was in no acute distress, afebrile, hemodynamically stable. She did have tenderness over her right lateral hip and to her right lateral malleolus. X-rays on my read showed no acute fractures. Patient continued to have significant pain and was unable to walk. Because of this, CT hip was obtained. CT read by remote radiology and showed no acute fractures. Patient was given multiple doses of Dilaudid and continued to have pain. She also remained unable to walk. Because of this, she will require admission for further evaluation and pain control. Case was discussed with hospitalist who will admit the patient. Patient is agreeable to this plan. Differential Diagnosis Differential diagnosis: Likely other (fracture, sprain, strain, contusion) Medical Records Attestation: I reviewed the patient's medical records. Lab Data Attestation: I reviewed the patient's lab results. 01/21/25 21:47 01/21/25 21:47 Labs: Lab Results 01/21/25 01/22/25 01/22/25 Range/Units 21:47 00:40 00:49 WBC 11.1 H (4.5-10.0) K/mm3 RBC 4.36 (4.2-5.4) M/mm3 Hgb 13.6 (12.0-15.0) g/dL Hct 40.7 (37.0-47.0) % MCV 93.3 (80-100) fl MCH 31.2 (26-34) pg MCHC 33.4 (32-36) g/dl RDW 11.9 (11.5-14.5) % Plt Count 246 (150-375) k/mm3 MPV 10.0 (7.4-10.4) fl Immature Gran % (Auto) 0.3 (0-0.5) % Neut % (Auto) 60.9 (45.5-73.1) % Lymph % (Auto) 29.4 (18.3-44.2) % [place] % (Auto) 5.9 (2.6-8.5) % Eos % (Auto) 3.0 (0-4.4) % Baso % (Auto) 0.5 (0.2-1.2) % Lymph # (Auto) 3.27 H (0.9-3.2) K/mm3 [place] # (Auto) 0.7 H (0.1-0.6) K/mm3 Eos # (Auto) 0.3 (0-0.3) K/mm3 Baso # (Auto) 0.1 (0.0-0.1) K/mm3 Abs Immat Gran (auto) 0.03 (0.00-0.031) K/mm3 Absolute Neuts (auto) 6.8 H (1.3-6.7) K/mm3 Absolute Nucleated RBC 0.000 (0.0-0.012) K/mm3 Nucleated RBC % 0.0 (0.0-0.2) % PT 12.9 (11.1-14.7) Seconds INR 1.0 APTT 27.2 (22.3-36.8) Seconds Sodium 137 (137-145) mmol/L Potassium 3.7 (3.4-5.0) mmol/L Chloride 103 (98-107) mmol/L Carbon Dioxide 25 (22-30) mmol/L Anion Gap 9 (4-12) mmol/L BUN 16 (7-17) mg/dL Creatinine 0.68 L (0.7-1.0) mg/dL Estim Creat Clear Calc 52 ml/min Estimated GFR > 60 (59 - ) Glucose 193 H (65-110) mg/dL Calcium 10.2 (8.4-10.2) mg/dL Total Bilirubin 0.5 (0.2-1.3) mg/dL AST 33 (14-36) U/L ALT 23 (6-35) U/L Alkaline Phosphatase 62 (38-126) U/L Troponin I < 0.012 < 0.012 (0.000-0.034) ng/mL Total Protein 7.4 (6.3-8.2) g/dL Albumin 4.2 (3.5-5.1) g/dL Lipase 58 (23-300) U/L Influenza A (RT-PCR) Negative (Negative) Influenza B (RT-PCR) Negative (Negative) RSV (RT-PCR) Negative (Negative) SARS-CoV-2 RNA (RT-PCR) Negative (Negative) ECG Data EKG #1: Attestation: I personally reviewed and interpreted this ECG as follows: ECG completion date: 01/21/25 ECG completion time: 21:41 Interpretation: Sinus tachycardia rate of 113, right bundle-branch block, no acute ST or T-wave changes EKG #2: ECG completion date: 01/22/25 ECG completion time: 00:55 Prior ECG tracings: available for review Interpretation: Normal sinus rhythm rate of 64, right bundle-branch block, no acute ST or T-wave changes. Comparison from earlier shows improved rate. Discharge Plan Discharge Clinical Impression: Intractable pain Contusion of hip Qualifiers: Encounter type: initial encounter Laterality: right Qualified Code(s): S70.01XA - Contusion of right hip, initial encounter Closed head injury Qualifiers: Encounter type: initial encounter Qualified Code(s): S09.90XA - Unspecified injury of head, initial encounter Ankle sprain Qualifiers: Encounter type: initial encounter Involved ligament of ankle: unspecified ligament Laterality: right Qualified Code(s): S93.401A - Sprain of unspecified ligament of right ankle, initial encounter Patient Disposition: Still a Patient Condition: Stable Patient Language: Gabonese Prescriptions: No Action ketoconazole 2 % cream 1 applic topical BID PRN (Reason: groin rash) Qty: 30 1RF calcium carbonate [Calcium 600] 600 mg calcium (1,500 mg) tablet 600 mg PO BID triamcinolone acetonide 0.5 % cream 1 applic topical DAILY PRN (Reason: external vaginal irritation) Qty: 15 0RF acetaminophen 500 mg tablet 1,000 mg PO TID PRN (Reason: jonathan) 7 Days Qty: 42 0RF lidocaine 5 % adhesive patch,medicated 1 patch topical DAILY Qty: 15 0RF Rx Instructions: leave on most painful area for up to 12 hrs oxycodone 5 mg tablet 5 mg PO Q4H PRN (Reason: pain) Qty: 14 0RF lorazepam [Ativan] 0.5 mg tablet 0.5 mg PO BID PRN (Reason: anxiety) Qty: 10 0RF alcohol swabs [BD Alcohol Swabs] Pads, Medicated 1 pad topical BID PRN (Reason: diabetes) Qty: 200 0RF levothyroxine 75 mcg capsule 75 mcg PO DAILY Qty: 90 3RF (DME) blood-glucose meter [[employer] Verio Flex meter] Misc See Rx Instructions .Route Qty: 1 0RF Rx Instructions: Use to check blood sugars daily (DME) lancets [TC3 HealthTouch Delica Plus Lancet] 33 gauge misc See Rx Instructions .Route Qty: 100 1RF Rx Instructions: Use to check blood sugars daily (DME) OneTouch Verio test strips Strip See Rx Instructions .Route Qty: 100 1RF Rx Instructions: Use to check blood sugars daily (DME) 2-Wheeled Walker See Rx Instructions .Route .MEDSUPPLY Qty: 1 0RF Rx Instructions: Use for transportation and gait instability. metoprolol tartrate 50 mg tablet 50 mg PO Q12H Qty: 180 1RF lovastatin 40 mg tablet 40 mg PO DAILY Qty: 90 1RF irbesartan 75 mg tablet 75 mg PO DAILY Qty: 90 1RF metformin 500 mg tablet extended release 24 hr 500 mg PO BID Qty: 180 1RF baclofen 10 mg tablet 10 mg PO DAILY PRN (Reason: muscle spasm) Qty: 90 1RF duloxetine 30 mg capsule,delayed release(DR/EC) 30 mg PO DAILY Qty: 90 1RF albuterol sulfate [Ventolin HFA] 90 mcg/actuation HFA aerosol inhaler 1 inh inhalation Q4H PRN (Reason: shortness of breath or wheezing) Qty: 8.5 0RF nystatin 100,000 unit/gram ointment 1 applic topical BID Qty: 30 0RF Rx Instructions: Mix with triamcinolone ointment before applying trazodone 100 mg tablet 100 mg PO QHS PRN (Reason: insomnia) Qty: 90 1RF
--- NOTE | 2025-01-21 22:51 | PC.NURSE ---
ok to not give aspirin per edp [facility]
[2025-01-21 23:39] VITALS: BP 170/81; PULSE 79; RESP 20; O2SAT 97
[2025-01-21] MEDS: ONDANSETRON INJ 4 MG/2 ML VIAL IV PUSH (23:40)
[2025-01-21] MEDS: MORPHINE SULFATE (*CRX) 2 MG/ML INJ IV PUSH (23:40)
[2025-01-22] VITALS (18 sets, daily range): BP systolic 141–169; BP diastolic 45–92; PULSE 60–114; RESP 14–19; TEMP 36.2–36.8; O2SAT 89–100; BMI 28.5
[2025-01-22] MEDS: HYDROmorphone HCL INJ (*CRX) 1 MG/ML SYR 0.5 MG IV PUSH ×5 (00:35→20:15)
[2025-01-22] MEDS: KETOROLAC 15 MG/ML VIAL (*BKC) IV PUSH (00:35)
--- NOTE | 2025-01-22 00:57 | ECG_ITS ---
Test Date: 2025-01-22 00:55:26 Measurements Intervals [place] Rate: 64 P: 20 IA: 156 QRS: -62 QRSD: 139 T: -13 QT: 418 QTc: 432 Interpretive Statements SINUS RHYTHM RIGHT BUNDLE BRANCH BLOCK [120+ ms QRS DURATION, UPRIGHT V1, 40+ ms S IN I/aVL/V4/V5/V6] LEFT ANTERIOR FASCICULAR BLOCK [QRS AXIS <= -45, QR IN I, RS IN II] ABNORMAL ECG Compared to ECG 01/21/2025 21:41:45 Sinus tachycardia no longer present Short IA interval no longer present Myocardial infarct finding no longer present Electronically Signed On 01-22-2025 11:12:29 CDT by George Hoover M.D.
[2025-01-22 01:25] LABS: Troponin I < 0.012 ng/mL (0.000-0.034)
[2025-01-22 01:36] LABS: Influenza A QL RT-PCR Negative (Negative); Influenza B QL RT-PCR Negative (Negative); RSV RNA, RT-PCR Negative (Negative); SARS-CoV-2 RNA PCR Negative (Negative)
--- NOTE | 2025-01-22 03:24 | PC.NURSE ---
This RN called and spoke to Kody, pt son-in-law and gave update on pt status. Will call back with a room number.
--- NOTE | 2025-01-22 03:52 | PC.NURSE ---
This RN called [facility] and left a voicemail of pt room number per pt request.
--- NOTE | 2025-01-22 04:09 | ADMGEN ---
This patient, Nicolle Kovacs, was admitted to 3 [facility] Surg Room 306-02. Patient/family oriented to hospital policies and general routines including ID bracelet, bed and alarms, visiting hours, pain management, procedures, bathroom and other care routines, personal items, smoking policy, room service/diet, and visiting hours. Information on how to activate the Rapid Response Team has been discussed. Patient/Family are encouraged to report perceived risks to care and to ask questions if they do not understand what they are told or what they should do.
[2025-01-22 05:38] LABS: Troponin I < 0.012 ng/mL (0.000-0.034)
[2025-01-22] MEDS: IRBESARTAN 75 MG TABLET PO (12:06)
[2025-01-22] MEDS: METOPROLOL TARTRATE 50 MG TAB PO ×2 (12:06→20:16)
[2025-01-22] MEDS: LEVOTHYROXINE SODIUM 75 MCG TABLET PO (12:06)
--- NOTE | 2025-01-22 13:20 | P.HP_ITS ---
H&P: HPI History of Present Illness Date/Time: 01/22/25 13:20 Chief Complaint: Fall at home Narrative: An 79-year-old female with PMH [id number] diabetes mellitus, hypertension, hypothyroidism, history of thyroid mass status post thyroidectomy with resultant chronic hoarse voice status post gorotex in 2023 following with ENT at [facility], chronic neck pain and DJD of the cervical spine having declined surgery presents to [facility] ER on 12/21/2024 after a fall at home. She reports living alone in a house and only uses a cane when she is out. She reports walking to her mailbox and she felt her right hip give out and she fell hit her right hip right knee and her head. She thinks she lost consciousness transiently. She was seen in the ER a few days prior on 01/18/2025 for pain which was already present without any blunt trauma, had x- ray hip right side and pelvis performed without any acute fracture or malalignment. She reports she has had this right hip pain for many weeks now. Of note, she also presented to the ER on 12/26/2024 complaining of chronic chest pain and shortness of breath. At that time her troponins were negative, CTA negative for PE and only demonstrating mosaic attenuation in the dependent lungs with subsegmental regions loosen air trapping likely related to small airway disease., also noted moderate intra and extrahepatic biliary ductal diet lesion. She has also had a Lexiscan stress test on 12/27/2023 which did not feel any infarct or ischemia. CT hip right-side without contrast, head CT, hip and pelvis x-rays, chest x-ray, right ankle x-ray without any acute bony abnormalities or intracranial hemorrhage she was given aspirin 324 mg p.o. x1, morphine 2 mg IV x1, Zofran, Dilaudid 0.5 mg IV x2, Toradol 50 mg IV x1 and subsequently admitted to the medical floor due to her inability to walk. Upon repeat examination the patient complains of uncontrolled pain at the right hip which is radiating down the front of her thigh. She reports her chronic neck pain, hoarse voice, chest pain. Denies any shortness of breath, she was on 1 L nasal cannula for a very short period after she received narcotics. Review of Systems Review of Systems: All systems reviewed & are unremarkable except as noted in HPI and below (HPI) PMFSH Past Medical History Medical History (Updated 01/22/25 @ 13:37 by Sima Frances MD) Hypertension Osteoporosis Diabetes History of blood clots Hx of goiter removed in 22 Thyroid disorder GERD (gastroesophageal reflux disease) Diabetes Arthritis Surgical History Surgical History H/O breast biopsy History of tonsillectomy History of dilatation and curettage History of elbow surgery History of throat surgery History of thyroplasty H/O tooth extraction Hx of cholecystectomy Hx of hysterectomy Hx of thyroidectomy 2019 Hx of cataract surgery 2022 Family History Family History Father Carcinoma of colon Mother Patient's mother is Hypertension Sibling Patient's sister is in good health Other Hypertension Social History Social History Smoking status: Never smoker Alcohol intake: former Substance use: never Substance use type: does not use Lack of Transportation: No Lack of Food: Never True Current Housing: I Have Housing Concerned About Future Housing: No Difficulty Paying Gas/Electric Bills: No Difficulty Paying for Meds: No Currently Unemployed: No Education: High School Diploma/GED Difficulty w/ Childcare or Family Care: No Spiritual care concerns: No Meds Home Medications and Allergies Home Medications ?Medication ?Instructions ?Recorded ?Confirmed ?Type calcium carbonate (Calcium 600) 600 mg PO BID 07/21/22 01/22/25 History alcohol swabs (BD Alcohol Swabs) 1 pad topical BID PRN diabetes 04/20/23 01/22/25 Rx #200 ea levothyroxine 75 mcg capsule 75 mcg PO DAILY #90 caps 01/15/24 01/22/25 Rx blood-glucose meter (OneTouch #1 ea 02/14/24 01/22/25 Rx Verio Flex Meter) lancets 33 gauge (OneTouch Delica #100 ea 02/14/2408/13 Rx Plus Lancet) blood sugar diagnostic (OneTouch #100 ea 07/30/2408/13 Rx Verio test strips) 2-Wheeled Walker #1 ea 08/02/24 01/22/25 Rx irbesartan 75 mg tablet 75 mg PO DAILY #90 tabs 07/1601/22/25 Rx lovastatin 40 mg tablet 40 mg PO DAILY #90 tabs 05/0 07/1601/22/25 Rx metoprolol tartrate 50 mg tablet 50 mg PO Q12H #180 ta bs 09/20/24 01/22/25 Rx metformin 500 mg tablet,extended 500 mg PO BID #180 ta bs 09/30/24 01/22/25 Rx release 24 hr baclofen 10 mg tablet 10 mg PO DAILY PRN muscle sp asm 12/13/24 01/22/25 Rx #90 tabs duloxetine 30 mg capsule,delayed 30 mg PO DAILY #90 ca ps 12/24/24 01/22/25 Rx release albuterol sulfate 90 mcg/actuation 1 inh inhalation Q4 H PRN shortness 12/25/24 01/22/25 Rx aerosol inhaler (Ventolin HFA) of breath or wheezing # 8.5 grams nystatin 100,000 unit/gram topical 1 applic topical BI D #30 grams 01/07/25 01/22/25 Rx ointment trazodone 100 mg tablet 100 mg PO QHS PRN insomnia # 90 tabs 01/16/25 01/22/25 Rx acetaminophen 500 mg tablet 1,000 mg (2 x 500 mg) PO T ID PRN 01/18/25 01/22/25 Rx jonathan 7 days #42 tabs lidocaine 5 % topical patch 1 patch topical DAILY #15 ea 01/18/25 01/22/25 Rx oxycodone 5 mg tablet 5 mg PO Q4H PRN pain #14 tab s 01/18/25 01/22/25 Rx Allergies Allergy/AdvReac Type Severity Reaction Status Date / Time codeine AdvReac Severe NAUSEA AND Verified 01/22/25 03:26 VOMITING tramadol AdvReac Severe NAUSEA AND Verified 01/22/25 03:26 VOMITING Vital Signs Vital Signs - 24 hr 01/21/25 21:34 01/21/25 23:39 01/22/25 00:21 Temperature 98.9 F Pulse Rate 98 79 60 Respiratory Rate 21 H 20 18 Blood Pressure 170/81 H 148/62 H Pulse Oximetry 99 97 97 Oxygen Delivery Room Air Oxygen Flow Rate 01/22/25 01:48 01/22/25 01:49 01/22/25 03:10 Temperature Pulse Rate Respiratory Rate Blood Pressure 164/92 H Pulse Oximetry 90 95 Oxygen Delivery Room Air Nasal Cannula Oxygen Flow Rate 1 01/22/25 03:15 01/22/25 03:21 01/22/25 03:53 Temperature Pulse Rate 64 61 Respiratory Rate 19 14 Blood Pressure 148/52 H Pulse Oximetry 90 95 95 Oxygen Delivery Room Air Oxygen Flow Rate 01/22/25 03:58 01/22/25 03:58 01/22/25 04:00 Temperature 97.3 F L Pulse Rate 64 Respiratory Rate 18 Blood Pressure 153/45 H Pulse Oximetry 89 L 97 99 Oxygen Delivery Room Air Nasal Cannula Oxygen Flow Rate 1 01/22/25 04:53 01/22/25 08:00 01/22/25 09:48 Temperature Pulse Rate Respiratory Rate Blood Pressure Pulse Oximetry 97 96 96 Oxygen Delivery Nasal Cannula Nasal Cannula Nasal Cannula Oxygen Flow Rate 1 1 1 01/22/25 10:30 01/22/25 12:06 01/22/25 12:37 Temperature 98.2 F Pulse Rate 114 H 100 Respiratory Rate 18 Blood Pressure 169/85 H Pulse Oximetry 98 Oxygen Delivery Room Air Oxygen Flow Rate Exam Const: General: comfortable and no acute distress HENMT: Mouth: Yes moist mucous membranes Eyes: Pupils: Equal, round and reactive pupils present Neck: Neck: supple Resp: Effort & Inspection: normal respiratory effort Other: Bibasilar crackles Cardio: Rate: regular rate Rhythm: regular rhythm GI: Inspection: non-distended GI Palp: Yes Soft to palpation Extrem: General: no edema H&P: Results Labs Labs: Short CBC 01/21/25 Range/Units 21:47 WBC 11.1 H (4.5-10.0) K/mm3 Hgb 13.6 (12.0-15.0) g/dL Hct 40.7 (37.0-47.0) % Plt Count 246 (150-375) k/mm3 BMP 01/21/25 21:47 Sodium 137 Potassium 3.7 Chloride 103 Carbon Dioxide 25 BUN 16 Creatinine 0.68 L Glucose 193 H Calcium 10.2 Cardiac Enzymes 01/21/25 01/22/25 01/22/25 Range/Units 21:47 00:49 05:01 Troponin I < 0.012 < 0.012 < 0.012 (0.000-0.034) ng/mL Liver Function 01/21/25 Range/Units 21:47 Total Bilirubin 0.5 (0.2-1.3) mg/dL AST 33 (14-36) U/L ALT 23 (6-35) U/L Alkaline Phosphatase 62 (38-126) U/L Albumin 4.2 (3.5-5.1) g/dL Assessment and Plan Assessment and plan (1) Gait instability: Code(s): R26.81 - Unsteadiness on feet Status: Acute (2) Right hip pain: Code(s): M25.551 - Pain in right hip Status: Acute (3) Hypertension: Code(s): I10 - Essential (primary) hypertension Status: Acute (4) Diabetes: Qualifiers: Diabetes mellitus type: type 2 Diabetes mellitus retirement insulin 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 Diabetes mellitus complication status: with ophthalmic complications Diabetes mellitus complication detail: with cataract Qualified Code(s): E11.36 - Type 2 diabetes mellitus with diabetic cataract Code(s): E11.9 - Type 2 diabetes mellitus without complications Status: Acute (5) SOB (shortness of breath): Code(s): R06.02 - Shortness of breath Status: Acute (6) Leukocytosis: Code(s): D72.829 - Elevated white blood cell count, unspecified Status: Acute Plan An 79-year-old female with PMH [id number] diabetes mellitus, hypertension, hypothyroidism, history of thyroid mass status post thyroidectomy with resultant chronic hoarse voice status post gorotex in 2023 following with ENT at [facility], chronic neck pain and DJD of the cervical spine having declined surgery presents to [facility] ER on 12/21/2024 after a fall at home. She reports living alone in a house and only uses a cane when she is out. She reports walking to her mailbox and she felt her right hip give out and she fell hit her right hip right knee and her head. She thinks she lost consciousness transiently after the blunt trauma. She was seen in the ER a few days prior on 01/18/2025 for pain which was already present without any blunt trauma, had x-ray hip right side and pelvis performed without any acute fracture or malalignment. She reports she has had this right hip pain for many weeks now. Of note, she also presented to the ER on 12/26/2024 complaining of chronic chest pain and shortness of breath. At that time her troponins were negative, CTA negative for PE and demonstrating mosaic attenuation in the dependent lungs with subsegmental regions loosen air trapping likely related to small airway disease., also noted moderate intra and extrahepatic biliary ductal dilation. She has also had a Lexiscan stress test on 12/27/2023 which did not feel any infarct or ischemia. CT hip right-side without contrast, head CT, hip and pelvis x-rays, chest x-ray, right ankle x-ray without any acute bony abnormalities or intracranial hemorrh age she was given aspirin 324 mg p.o. x1, morphine 2 mg IV x1, Zofran, Dilaudid 0.5 mg IV x2, Toradol 50 mg IV x1 and subsequently admitted to the medical floor due to her inability to walk. Upon repeat examination the patient complains of uncontrolled pain at the right hip which is radiating down the front of her thigh. She reports her chronic neck pain, hoarse voice, chest pain. Denies any shortness of breath, she was on 1 L nasal cannula for a very short period after she received narcotics. ----- She has point tenderness at the greater trochanter and palpation along the anterior hip. Appears she had greater trochanteric pain syndrome for about a month now but of course due to blunt trauma she has more pain. No acute fractures demonstrated on CT scan. PT OT ordered. Ambulate with assistance. Fall precautions. She has been taking Tylenol at home which has not been helping. Start Tylenol p.r.n., oxycodone p.r.n., Dilaudid p.r.n. Leukocytosis is mild. This is likely reactive. Afebrile. Continue to trend. She has had chronic shortness of breath and occasional cough for many weeks to months now. CTA chest on 12/26/2024: 1. Mosaic attenuation in the dependent lungs with subsegmental regions of more lucent air trapping likely related to small airway disease. No pulmonary embolism or other acute cardiopulmonary disease. 2. Moderate intra and extra hepatic biliary ductal dilation which could be related to prior cholecystectomy but is more prominent than typical. Correlate with liver function tests and if clinically indicated could consider MRCP for further evaluation. She has bibasilar crackles and O2 saturation 88% on room air after receiving narcotics. She is now back on room air and saturating well. Although this could have been due to narcotic administration will consult pulmonology to assist. 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 She does have a rescue inhaler prescribed. Quad viral screen on admission negative. BNP on admission only 129. Unlikely to be heart failure. Unclear if this is related to her 4 neck/thyroid surgeries. She denies having acid reflux. Accu-Cheks a.c. HS with low-dose insulin sliding scale. Continue [employer] levothyroxine Patient wishes to be full code. Fall precautions. Ambulate with assistance. PT/OT evaluations. Saline lock IV. Hospitalist [facility] Advance Care Plan I have confirmed that the patient's Advanced Care Plan is present, code status is documented, or surrogate decision maker is listed in patient medical record.: Yes Medication Reconciliation I have utilized all available resources to obtain, update and review the patients current medications (includes all prescriptions, OTC, herbals, cannabis, and nutritional supplements).: Yes
[2025-01-22] MEDS: oxyCODONE/ACETAMINOPHEN (*CRX) 5-325 MG TABLET 1 TABLET PO ×2 (13:50→17:55)
[2025-01-22] MEDS: LOVASTATIN 20 MG TABLET 40 MG PO (20:16)
[2025-01-23] VITALS: BP 160/75; PULSE 78; RESP 18; TEMP 36.6; O2SAT 89
[2025-01-23 04:00] VITALS: BP 138/63; PULSE 97; RESP 18; TEMP 36.7; O2SAT 92
[2025-01-23] MEDS: LEVOTHYROXINE SODIUM 75 MCG TABLET PO (05:09)
[2025-01-23] MEDS: oxyCODONE/ACETAMINOPHEN (*CRX) 5-325 MG TABLET 1 TABLET PO (05:09)
[2025-01-23 06:01] LABS: Hematocrit 37.8 % (37.0-47.0); Hemoglobin 12.0 g/dL (12.0-15.0); Immature Granulocyte Percent A 0.6 % (0-0.5); Lymphocytes Absolute Auto 1.51 K/mm3 (0.9-3.2); Mean Corpuscular HGB Conc 31.7 g/dl (32-36); Mean Corpuscular Hemoglobin 31.3 pg (26-34); Mean Corpuscular Volume 98.7 fl (80-100); Nucleated Red Blood Cells Absolute Auto 0.000 K/mm3 (0.0-0.012); Nucleated Red Blood Cells Perc 0.0 % (0.0-0.2); Platelet Count Result 223 k/mm3 (150-375); Red Blood Count 3.83 M/mm3 (4.2-5.4); White Blood Count 9.1 K/mm3 (4.5-10.0)
[2025-01-23 06:23] LABS: Anion Gap 7 mmol/L (4-12); Blood Urea Nitrogen 18 mg/dL (7-17); Calcium 9.0 mg/dL (8.4-10.2); Carbon Dioxide 28 mmol/L (22-30); Chloride 101 mmol/L (98-107); Estimated CRCL calculation 62 ml/min; Estimated Glomerular Filt Rate > 60; Glucose 189 mg/dL (65-110); Magnesium 1.0 mg/dL (1.6-2.3); Potassium 3.9 mmol/L (3.4-5.0); Sodium 136 mmol/L (137-145)
--- NOTE | 2025-01-23 07:31 | P.CONPL_ITS ---
Assessment and Plan Assessment and plan (1) Abnormal CT of the chest: Code(s): R93.89 - Abnormal findings on diagnostic imaging of other specified body structures Status: Acute Assessment and Plan: In comparison of CT chest on 01/07/2017, CT soft tissue neck on 02/24/2018, CT soft tissue neck on 06/07/2018, CT soft tissue neck on 10/18/2022, CT cervical spine 11/28/2024, CT angiogram 12/09/2024, CT angiogram 12/26/2024 there was very mild mosaic attenuation on 01/07/2017, 02/24/2018 and 05/28/2018, there is mild mosaic attenuation on 10/18/2022 which had worsened to moderate in the upper lung durbin on 11/28/2024. Mosaic attenuation had resolved on 12/09/2024 and was present on 12/26/2024 with less intensity than 11/28/2024 and similar in intensity to 10/18/2022. Etiology of intermittent mosaic attenuation dating back to 2016 is unclear. Between 11/28/2024 and 12/09/2024 the mosaic attenuation had resolved. Patient has no change in her respiratory symptoms over the last year with dyspnea on exertion at 1 block, she does have 2 month history of cough with phlegm 5 times a day. Patient had a CT angiogram of the chest that was negative on 12/23/2024. She did not improve with prednisone her albuterol. Her BNP today is 555 with and echocardiogram demonstrating normal LV systolic function 65-70, abnormal diastolic dysfunction, mild , mild AR, trace TR with a PA SP of 28. No evidence of fluid overload on exam. 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 Of note, patient has 2 finches and 1 parakeet for 6 years. 01/23/2025: The patient denies if any difficulty breathing at rest or with activity. She still does say that currently she breathes through her mouth and this is different for her. she denies struggling when she breathes. Her phlegm is at her baseline at 5 times a day. White blood cell count 9.1, creatinine 0.58. Procalcitonin 0.0, CRP 2.5, BNP 555. Plan: I will send serologies looking for autoimmune disease or connective tissue disorder. I will order a GAMAL screen that includes 11 different auto antibodies, an ANCA screen, a rheumatoid factor, anti CCP antibody, hypersensitivity pneumonitis panel, a CPK, an aldolase level, and myomarker 3 plus profile. From a pulmonary perspective patient is stable to be discharged with follow-up in the Pulmonary Clinic in 4 weeks. Plan to obtain outpatient PFTs and a repeat CT scan of the chest on 03/28/2025 To follow her mosaic attenuation. Patient is scheduled to follow-up with ENT, Dr. Sullivan in 02/26/2025. Given that her mosaic attenuation resolved on 12/09/2024 I doubt that this is a hypersensitivity pneumonitis to her parakeet and finches. Follow-up in the Pulmonary Clinic in 4 weeks. 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 Discussed case with Dr. Frances, will sign off, call with questions. History of Present Illness History of Present Illness Consult date: 01/23/25 Chief complaint: fall, hip contusion, ankle sprain, intractable jonathan Narrative: 01/23/2025: This is a new pulmonary consult for mosaic attenuation on her CT scan from 08/2024. 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 In comparison of CT chest on 01/07/2017, CT soft tissue neck on 02/24/2018, CT soft tissue neck on 06/07/2018, CT soft tissue neck on 10/18/2022, CT cervical spine 11/28/2024, CT angiogram 12/09/2024, CT angiogram 12/26/2024 there was very mild mosaic attenuation on 01/07/2017, 02/24/2018 and 05/28/2018, there is mild mosaic attenuation on 10/18/2022 which had worsened to moderate in the upper lung durbin on 11/28/2024. Mosaic attenuation had resolved on 12/09/2024 and was present on 12/26/2024 with less intensity than 11/28/2024 and similar in intensity to 10/18/2022. Regarding her thyroid mass she has undergone for operations, [address] Nguyen 10, 1 by [facility] and most recently at [facility] she had a Fairdale-Brad thyroplasty performed in October of 2023. This was done for hoarse voice and she was no better after the surgery. She followed up with [facility] time and has not been seen back at their facility. She is scheduled to see ENT Dr. Sullivan in February of 2025. At baseline the patient tells me she does not have any rest shortness of breath. She can walk 1 block currently this is not changed over the last year. When she walks and [employer] with a cart she can walk an unlimited distance with no respiratory limitations. Patient has no history of wheezing. She has a rash under her breasts and groin that is being treated with antifungals. She has arthritis for 17 years that has not gotten significantly worse In the last few months. Patient has 1 Garcia and 2 parakeets for the last 6 years. She has 2 dogs for 10 years. Patient has had 2 months of a cough approximately 5 times a day. She is able to get phlegm to her throat but can not always cough this up. She denies any hemoptysis. patient presented to the emergency department on 12/26/2024 with chest pain, difficulty swallowing, numbness in both upper extremities. CT angiogram of the chest at that time showed mosaic attenuation with air trapping and patient was prescribed an albuterol p.r.n. inhaler. She took this but it did not help. 01/21/2025 patient presented to the emergency department after a fall with right hip and right ankle pain. She had no real change in her breathing issues. she denied fever, chills, rigors. White blood cell count 11.1, eosinophils 3%=333/uL, creatinine 0.68, COVID influenza and RSV RT PCR negative. Chest x- ray showed bilateral lower lobe interstitial infiltrates and left mid lung infiltrate. Compared to 10/06/2023 the lung volumes are smaller and lower lobe infiltrates were new. 01/23/2025: The patient denies if any difficulty breathing at rest or with activity. She still does say that currently she breathes through her mouth and this is different for her. she denies struggling when she breathes. Her phlegm is at her baseline at 5 times a day. when I enter the room she was on 1 L nasal cannula saturations 99%, I decreased her to room air and her saturations were 95%. White blood cell count 9.1, creatinine 0.58. Procalcitonin 0.0, CRP 2.5, BNP 555. DATA: 01/23/2025: Echo Summary 1. Complete two-dimensional, color flow and Doppler transthoracic echocardiogram is performed. 2. Left ventricular chamber dimension is normal. 3. Left ventricular systolic function is normal, estimated at 65-70. 4. The left ventricular diastolic function is abnormal. 5. E/e' 12 is mildly elevated. 6. There is mild aortic valve sclerosis. 7. There is mild aortic valve regurgitation. 8. There is trace tricuspid valve regurgitation. 9. No pulmonary hypertension, estimated pulmonary arterial systolic pressure is 28 mmHg. Right Ventricle Right ventricular chamber dimension is normal. Right ventricular systolic function is normal and with normal TAPSE 2.5 cm. Left Atria Left atrial chamber dimension is normal. Right Atria Right atrial chamber dimension is normal. 12/26/2024: EXAMINATION: CTA chest PE protocol INDICATION: Chest pain COMPARISON: 12/09/2024 FINDINGS: No pulmonary embolism. Mild bibasilar atelectasis. 5 mm likely calcified nodule at the lingula unchanged since 01/07/2017 which along with calcite left hilar and mediastinal lymph nodes are consistent with old granulomatous disease. There is mosaic attenuation in the bilateral lower lobes likely related to incomplete inspiration with subsegmental regions of more lucent air trapping. No pneumonia, pulmonary edema, pleural effusion or pneumothorax. Heart size is normal. Atherosclerotic coronary artery calcification. No pericardial effusion. Thoracic aorta is normal in caliber with no dissection. No pathologically enlarged thoracic lymphadenopathy. The common hepatic duct is dilated to 2.2 cm which tapers distally throughout the common bile duct without evident obstructing stone or mass although the distalmost common bile duct is not visualized. There is also mild to moderate intrahepatic biliary ductal dilation. Biliary ductal dilation can be seen as sequela of prior cholecystectomy although this is more prominent than typical. Splenic calcifications consistent with old granulomatous disease. Severe lower cervical and moderate thoracic spondylosis. IMPRESSION: 1. Mosaic attenuation in the dependent lungs with subsegmental regions of more lucent air trapping likely related to small airway disease. No pulmonary embolism or other acute cardiopulmonary disease. 2. Moderate intra and extra hepatic biliary ductal dilation which could be related to prior cholecystectomy but is more prominent than typical. Correlate with liver function tests and if clinically indicated could consider MRCP for further evaluation. 12/09/24: EXAMINATION: CT diagnostic chest w con INDICATION: R91.8 - Other nonspecific abnormal finding of lung field on prior cervical spine CT TECHNIQUE: Computed tomography (CT) of the chest was performed with 75 mL Omnipaque-350 intravenous contrast. Additional 3D reconstructions utilizing coronal maximum intensity projection (MIP) were performed. Automated exposure control and iterative reconstruction technique were employed. The dose-length product was 177.81 mGy-cm. COMPARISON: CT dated 11/28/2024 FINDINGS: The previously seen mosaic attenuation at the bilateral upper lobes have resolved. Review of prior imaging demonstrates concave posterior wall of the trachea suggesting this may have represented atelectasis related to expiratory phase of imaging with subsegmental regions of more lucent air trapping as can be seen in the setting of small airway disease.. Mild left basilar atelectasis. 5 mm calcified nodules at the lingula with calcified mediastinal lymph nodes consistent with old granulomatous disease. Small region of age-indeterminate tree-in-bud opacity at the basilar left lower lobe consistent with bronchiolitis with endobronchial spread of disease. No pulmonary edema, pleural effusion or pneumothorax. Heart size is normal. No pericardial effusion. Thoracic aorta is normal in caliber with no dissection. No pathologically enlarged thoracic lymphadenopathy. Common bile duct is dilated to 1.6 cm there is mild to moderate intrahepatic biliary ductal dilation. Multiple small cysts and parapelvic cysts at the bilateral kidneys. Mild thoracic dextrocurvature with mild to moderate spondylosis. Severe lower cervical spondylosis. IMPRESSION: 1. Small region of age-indeterminate tree-in-bud opacity at the basilar left lower lobe consistent with bronchiolitis with endobronchial spread of disease. 2. Mild to moderate intra and extra hepatic biliary ductal dilation which can be seen postcholecystectomy. Correlate with surgical history and with liver function tests. Clinically indicated this could be further evaluated with MRI/MRCP. 11/28/24: Noncontrast CT scan of the cervical spine Clinical History: Spinal stenosis Findings: No acute fracture seen in the cervical spine. There is minimal grade 1 anterolisthesis of C4 over C5. There is advanced degenerative change at the articulation of the odontoid process with the anterior arch of C1. At C2-C3, there is bilateral facet arthropathy. No definite disc bulge or herniation. No definite spinal canal stenosis, cord compression, or neural foraminal narrowing. At C3-C4, there is disc osteophyte complex with extensive bilateral facet arthropathy. There is severe bilateral neural foraminal narrowing. No definite canal stenosis or cord compression. At C4-C5, there is mild disc bulge. There is severe bilateral facet arthropathy. There is bilateral moderate to severe neural foraminal narrowing. No definite canal stenosis or cord compression. At C5-C6, there is advanced degenerative disc narrowing. There is mild disc osteophyte complex. There is mild bilateral facet arthropathy. There is moderate bilateral neural foraminal narrowing. No definite canal stenosis or cord compression. At C6-C7, there is advanced degenerative disc narrowing. There is advanced right facet arthropathy. There is mild bilateral neural foraminal narrowing. No definite canal stenosis or cord compression. Paravertebral soft tissues are unremarkable. There is mosaic attenuation pattern in the visualized upper lobes of the lungs. Impression: No acute fracture. Minimal grade 1 anterolisthesis of C4 over C5. Moderate degenerative spondylitic changes overall, with extensive facet arthropathy and multilevel neural foraminal narrowing. Mosaic attenuation pattern of the upper lobes of lungs. Consider pulmonary edema, bronchiolitis, asthma, hypersensitivity pneumonitis, chronic PE. 10/18/2022: I reviewed soft tissue neck CT: images obtained through approximately the T7 level demonstrate mild mosaic attenuation in both upper lobes and more pronounced mosaic attenuation in the superior segments of both lower lobes. 02/2019: CT scan of the chest report from [facility]: Findings: Thyroid there is a soft tissue mass noted in the right paratracheal region which appears continuous with the thyroid tissue and may represent a substernal goiter. This does cause shift of the trachea to the left. Pleural space: No effusion or pneumothorax Lungs the lungs are clear without consolidation, effusion or pneumothorax. No honeycombing bronchiectasis or suspicious nodules are noted. There is no evidence for emphysematous changes. Impression: Unremarkable high-resolution chest CT. 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 This does have mass effect on the trachea and causes left were shift. Further evaluation is recommended. 01/07/2017: EXAMINATION: CTA CHEST (PULMONARY ART) DATE: 01/07/17 01:35:00 INDICATION: Shortness of breath. COMPARISON: None. FINDINGS: There is mild scarring at the lung apices. There are patchy groundglass opacities involving all lobes. There is mild bronchiectasis in right middle lobe. There is a 4 mm nodule in lingula, likely benign. There are airspace opacities in the lower lobes along the bronchopulmonary interstitium with volume loss. Calcified left hilar lymph nodes are consistent with old granulomatous disease. There is mucous plugging in the lower lobes with bronchial wall thickening. No pleural effusion. The heart size is normal. There is no pulmonary embolus. There is a multinodular goiter. There is moderate intrahepatic biliary duct dilatation. There are bridging endplate osteophytes at multiple levels in the spine, consistent with diffuse idiopathic skeletal hyperostosis (DISH). There is thoracic kyphosis, dextroscoliosis, and moderate spondylosis. IMPRESSION: 1. No pulmonary embolus. Sensitivity is moderately decreased by motion artifact. 2. Multifocal lung disease, likely predominantly atelectasis. Some component of pneumonia may be present. 3. Multinodular goiter. 4. Moderate intrahepatic biliary duct dilatation. Review of Systems 2 Constitutional: Constitutional: Reports no additional constitutional complaints Eyes: Eyes: Reports no additional eye complaints ENT: Reports system reviewed and no additional complaints, except as documented Cardiovascular: Cardiovascular: Reports no additional cardiovascular complaints Respiratory: Respiratory: Reports no additional respiratory complaints Gastrointestinal: Gastrointestinal: Reports no additional gastrointestinal complaints Musculoskeletal: Musculoskeletal: Reports no additional musculoskeletal complaints Neurologic: Reports system reviewed and no additional complaints, except as documented Psychiatric: Psychiatric: Reports no additional psychiatric complaints Endocrine: Endocrine: Reports no additional endocrine complaints Hematologic/Lymphatic: Hematologic/Lymphatic: Reports no additional hematologic/lymphatic complaints Allergic/Immunologic: Allergic/Immunologic: Reports no additional allergic/immunologic complaints [facility] Past Medical History Medical History (Updated 01/23/25 @ 12:15 by Vish Martinez MD) Hypertension Osteoporosis Diabetes History of blood clots Hx of goiter removed in 20 Thyroid disorder GERD (gastroesophageal reflux disease) Diabetes Arthritis Surgical History Surgical History H/O breast biopsy History of tonsillectomy History of dilatation and curettage History of elbow surgery History of throat surgery History of thyroplasty H/O tooth extraction Hx of cholecystectomy Hx of hysterectomy Hx of thyroidectomy 2019 Hx of cataract surgery 2022 Family History Family History Father Carcinoma of colon Mother Patient's mother is Hypertension Sibling Patient's sister is in good health Other Hypertension Social History Social History Smoking status: Never smoker Alcohol intake: former Substance use: never Substance use type: does not use Lack of Transportation: No Lack of Food: Never True Current Housing: I Have Housing Concerned About Future Housing: No Difficulty Paying Gas/Electric Bills: No Difficulty Paying for Meds: No Currently Unemployed: No Education: High School Diploma/GED Difficulty w/ Childcare or Family Care: No Spiritual care concerns: No Meds Home Medications and Allergies Home Medications ?Medication ?Instructions ?Recorded ?Confirmed ?Type calcium carbonate (Calcium 600) 600 mg PO BID 07/21/22 01/22/25 History alcohol swabs (BD Alcohol Swabs) 1 pad topical BID PRN diabetes 04/20/23 01/22/25 Rx #200 ea levothyroxine 75 mcg capsule 75 mcg PO DAILY #90 caps 01/15/24 01/22/25 Rx blood-glucose meter (OneTouch #1 ea 02/14/24 01/22/25 Rx Verio Flex Meter) lancets 33 gauge (OneTouch Delica #100 ea 02/14/2408/13 Rx Plus Lancet) blood sugar diagnostic (OneTouch #100 ea 07/30/2408/13 Rx Verio test strips) 2-Wheeled Walker #1 ea 08/02/24 01/22/25 Rx irbesartan 75 mg tablet 75 mg PO DAILY #90 tabs 07/1601/22/25 Rx lovastatin 40 mg tablet 40 mg PO DAILY #90 tabs 0507/1601/22/25 Rx metoprolol tartrate 50 mg tablet 50 mg PO Q12H #180 ta bs 09/20/24 01/22/25 Rx metformin 500 mg tablet,extended 500 mg PO BID #180 ta bs 09/30/24 01/22/25 Rx release 24 hr baclofen 10 mg tablet 10 mg PO DAILY PRN muscle sp asm 12/13/24 01/22/25 Rx #90 tabs duloxetine 30 mg capsule,delayed 30 mg PO DAILY #90 ca ps 12/24/24 01/22/25 Rx release albuterol sulfate 90 mcg/actuation 1 inh inhalation Q4 H PRN shortness 12/25/24 01/22/25 Rx aerosol inhaler (Ventolin HFA) of breath or wheezing # 8.5 grams nystatin 100,000 unit/gram topical 1 applic topical BI D #30 grams 01/07/25 01/22/25 Rx ointment trazodone 100 mg tablet 100 mg PO QHS PRN insomnia # 90 tabs 01/16/25 01/22/25 Rx acetaminophen 500 mg tablet 1,000 mg (2 x 500 mg) PO T ID PRN 01/18/25 01/22/25 Rx jonathan 7 days #42 tabs lidocaine 5 % topical patch 1 patch topical DAILY #15 ea 01/18/25 01/22/25 Rx oxycodone 5 mg tablet 5 mg PO Q4H PRN pain #14 tab s 01/18/25 01/22/25 Rx Allergies Allergy/AdvReac Type Severity Reaction Status Date / Time codeine AdvReac Severe NAUSEA AND Verified 01/22/25 03:26 VOMITING tramadol AdvReac Severe NAUSEA AND Verified 01/22/25 03:26 VOMITING Vital Signs Vital Signs - 24 hr 01/22/25 08:00 01/22/25 09:48 01/22/25 10:30 Temperature 36.8 C Pulse Rate 114 H Respiratory Rate 18 Blood Pressure 169/85 H Pulse Oximetry 96 96 98 Oxygen Delivery Nasal Cannula Nasal Cannula Oxygen Flow Rate 1 1 01/22/25 12:06 01/22/25 12:37 01/22/25 15:28 Temperature Pulse Rate 100 Respiratory Rate Blood Pressure Pulse Oximetry Oxygen Delivery Room Air Room Air Oxygen Flow Rate 01/22/25 16:34 01/22/25 20:00 01/22/25 20:16 Temperature 36.2 C L 36.7 C Pulse Rate 60 78 78 Respiratory Rate 18 16 Blood Pressure 141/60 H 156/82 H Pulse Oximetry 97 100 Oxygen Delivery Oxygen Flow Rate 01/22/25 20:16 01/22/25 21:01 01/23/25 00:00 Temperature 36.7 C 36.6 C Pulse Rate 78 78 Respiratory Rate 16 18 Blood Pressure 156/82 H 160/75 H Pulse Oximetry 100 89 L Oxygen Delivery Room Air Oxygen Flow Rate 01/23/25 04:00 Temperature 36.7 C Pulse Rate 97 Respiratory Rate 18 Blood Pressure 138/63 Pulse Oximetry 92 Oxygen Delivery Oxygen Flow Rate Exam 2 Narrative: No respiratory distress on room air. Const: General: cooperative, healthy appearing and comfortable O rientation/consciousness: oriented to person, oriented to place and oriented to time HENMT: Head: normal to inspection Ears: hearing grossly normal bilaterally Eyes: General: appearance normal, both eyes and all related structures Neck: Neck: normal visual inspection Chest: Chest palpation & inspection: normal inspection of the chest Resp: Effort & Inspection: normal respiratory effort and able to speak in complete sentences Auscultation: no crackles, no rales, no rhonchi, no wheezes and lung sounds not diminished Other: Clear to auscultation Cardio: Jugular venous distension: no JVD GI: Inspection: normal to inspection GI Palp: No abdominal tenderness Skin: General skin exam: normal color Neuro: General: oriented to person, oriented to place and oriented to time Extrem: General: normal to inspection Psych: Appearance: grossly normal Results Laboratory Findings 01/23/25 05:13 01/23/25 05:13 ABG, PT/INR, D-dimer: PT/INR, D-dimer PT 12.9 Seconds (11.1-14.7) 01/21/25 21:47 INR 1.0 01/21/25 21:47 Abnormal lab findings: Abnormal Labs 09/02/25 09/03/25 09/03/25 21:47 17:39 20:09 WBC 11.1 H RBC MCHC MPV Immature Gran % (Auto) Neut % (Auto) Lymph % (Auto) Lymph # (Auto) 3.27 H [place] # (Auto) 0.7 H Abs Immat Gran (auto) Absolute Neuts (auto) 6.8 H Sodium BUN Creatinine 0.68 L Glucose 193 H POC Capillary Glucose 124 H 135 H Magnesium 01/23/25 01/23/25 05:13 07:25 WBC RBC 3.83 L MCHC 31.7 L MPV 10.6 H Immature Gran % (Auto) 0.6 H Neut % (Auto) 76.6 H Lymph % (Auto) 16.7 L Lymph # (Auto) [place] # (Auto) Abs Immat Gran (auto) 0.05 H Absolute Neuts (auto) 7.0 H Sodium 136 L BUN 18 H Creatinine 0.58 L Glucose 189 H POC Capillary Glucose 176 H Magnesium 1.0 L Diagnostic Findings Additional studies: ITS Impressions Ankle X-Ray 01/22/25 08:07 IMPRESSION: 1. No acute osseous abnormality. Chest X-Ray 01/22/25 08:10 IMPRESSION: 1. Interstitial and airspace opacities in the left mid and bilateral lower lung zones which could represent pulmonary edema or pneumonia. Head CT 01/22/25 08:31 IMPRESSION: No evidence for acute intracranial hemorrhage or calvarial fracture. Hip CT 01/22/25 08:32 IMPRESSION: No fracture.
[2025-01-23 08:00] VITALS: BP 137/57; PULSE 57; RESP 16; TEMP 36.7; O2SAT 100
--- NOTE | 2025-01-23 08:11 | ECHO_ITS ---
Patient Info Name: Nicolle Kovacs Age: 79 years : 1945 Gender: Female Ht: 63 in Wt: 160 lbs BSA: 1.82 m2 HR: 53 bpm BP: 138 / 63 mmHg Technical Quality: Good Exam Date: 01/23/2025 9:23 AM Patient Status: I Admit Date: 01/22/2025 Exam Type: CA echo doppler color flow Complete two-dimensional, color flow and Doppler transthoracic echocardiogram is performed. Staff Referring Physician: Jorgito Jordan Valet Manager: Tena Haq Attending Provider: Brenda Montesinos Summary 1. Complete two-dimensional, color flow and Doppler transthoracic echocardiogram is performed. 2. Left ventricular chamber dimension is normal. 3. Left ventricular systolic function is normal, estimated at 65-70. 4. The left ventricular diastolic function is abnormal. 5. E/e' 12 is mildly elevated. 6. There is mild aortic valve sclerosis. 7. There is mild aortic valve regurgitation. 8. There is trace tricuspid valve regurgitation. 9. No pulmonary hypertension, estimated pulmonary arterial systolic pressure is 28 mmHg. Left Ventricle E/e' 12 is mildly elevated. Left ventricular chamber dimension is normal. Left ventricular systolic function is normal, estimated at 65-70. The left ventricular diastolic function is abnormal. Right Ventricle Right ventricular chamber dimension is normal. Right ventricular systolic function is normal and with normal TAPSE 2.5 cm. Left Atria Left atrial chamber dimension is normal. Right Atria Right atrial chamber dimension is normal. Aortic Valve The aortic valve is trileaflet. There is mild aortic valve sclerosis. There is no aortic valve stenosis. There is mild aortic valve regurgitation. Pulmonic Valve There is no pulmonic regurgitation. Mitral Valve There is no mitral valve stenosis. There is no mitral valve regurgitation. Tricuspid Valve There is trace tricuspid valve regurgitation. No pulmonary hypertension, estimated pulmonary arterial systolic pressure is 28 mmHg. Pericardium/Pleural There is no pericardial effusion. Inferior Vena Cava Normal inferior vena cava with >50% collapse upon inspiration consistent with normal right atrial pressure, 5 mmHg. Aorta The aortic root size at the sinus of Valsalva is normal. Left Ventricular Outflow Tract Name Value Normal LVOT 2D LVOT Diameter 1.8 cm LVOT Doppler LVOT Peak Velocity 104 cm/s LVOT Peak Gradient 4 mmHg LVOT Mean Gradient 3 mmHg LVOT VTI 27 cm LVOT VTI/AV VTI Ratio 0.6 LVOT Stroke Volume 72 ml LVOT CO 13.3 l/min LVOT CI 7.3 l/min/m2 Pulmonic Valve Name Value Normal PV Doppler PV Peak Velocity 98 cm/s PV Peak Gradient 4 mmHg Mitral Valve Name Value Normal MV Diastolic Function MV E Peak Velocity 82 cm/s MV A Peak Velocity 75 cm/s MV E/A 1.1 MV Decel Time (PW) 303 ms MV Annular TDI MV E/e' (Septal) 12.2 MV E/e' (Lateral) 12.2 MV E/e' (Average) 12.2 Tricuspid Valve Name Value Normal TV Regurgitation Doppler TR Peak Velocity 239 cm/s TR Peak Gradient 17 mmHg Estimated PAP/RSVP RA Pressure 5 mmHg <=5 PA Systolic Pressure 28 mmHg <36 RV Systolic Pressure 28 mmHg <36 TV Annular TDI TV Lateral Estefany s' Velocity 9.7 cm/s >=9.5 Aorta Name Value Normal Ascending Aorta Ao Root Diameter (MM) 3.0 cm Ao Root Diam Index (MM) 1.6 cm/m2 Aortic Valve Name Value Normal AV Doppler AV Peak Velocity 201 cm/s AV Peak Gradient 16 mmHg AV Mean Gradient 10 mmHg AV VTI 47 cm AV Area (Cont Eq VTI) 1.5 cm2 >=3.0 AV Area (Cont Eq Leo) 1.4 cm2 AV DI (Leo) 0.52 AV Regurgitation 2D LVOT Area 2.6 cm2 Ventricles Name Value Normal LV Dimensions 2D/MM IVS Diastolic Thickness (2D) 1.0 cm 0.6-1.0 LVID Diastole (2D) 4.3 cm 3.8-5.2 LVIW Diastolic Thickness (2D) 0.9 cm 0.6-0.9 LVID Systole (2D) 2.6 cm 2.2-3.5 LVOT Diameter 1.8 cm LV Mass (2D Cubed) 132.09 g 67.00-162.00 LV Mass Index (2D Cubed) 73 g/m2 43-95 Relative Wall Thickness (2D) 0.40 <=0.42 LV Fractional Shortening/Ejection Fraction 2D/MM LV Fractional Shortening (2D) 39 % 27-45 LV EF (2D Teichholz) 70 % LV Diastolic Volume (4C MOD) 107 ml LV EF (4C MOD) 80 % LV Diastolic Volume (2C MOD) 91 ml LV EF (2C MOD) 72 % LV Diastolic Volume (BP MOD) 99 ml 46-106 LV Diastolic Volume Index (BP MOD) 55 ml/m2 29-61 LV Systolic Volume (BP MOD) 23 ml 14-42 LV Systolic Volume Index (BP MOD) 13 ml/m2 8-24 LV EF (BP MOD) 77 % 54-74 LV Diastolic Length (4C) 7.6 cm LV Systolic Length (4C) 6.2 cm LV Stroke Volume (4C MOD) 86 ml Atria Name Value Normal LA Dimensions LA Dimension (MM) 3.9 cm 2.7-3.8 LA Volume (4C A-L) 44 ml LA Volume (BP A-L) 49 ml RA Dimensions RA Area (4C) 14.4 cm2 <=18.0 Report Signatures
[2025-01-23 08:35] LABS: CRP 2.5 mg/dL (<1.0)
[2025-01-23 08:40] LABS: NT Pro B Type Natriuretic Pept 555 pg/mL (19.9-100)
[2025-01-23] MEDS: CALCIUM CARBONATE (TUMS) 500 MG (200 MG ELEMENTAL) 600 MG BY MOUTH (09:46)
[2025-01-23 10:01] LABS: Procalcitonin 0.0 ng/mL
[2025-01-23 14:00] VITALS: BP 197/96; PULSE 125; RESP 20; TEMP 36.9; O2SAT 100
--- NOTE | 2025-01-23 14:08 | PCPTNOTE ---
Attempted to see patient for PT, patient initially agreeable for PT with encouragement. While getting patient's walker ready for ambulation, patient's walker accidently hit patient's foot, patient then reported I am not walking anymore and that she was done. Patient then adamantly refused PT and reported she is leaving AMA. RN and care coordination aware.
--- NOTE | 2025-01-23 16:15 | P.PNIM_ITS ---
Progress Note: A&P Assessment and Plan (1) Gait instability: Code(s): R26.81 - Unsteadiness on feet Status: Acute (2) Right hip pain: Code(s): M25.551 - Pain in right hip Status: Acute (3) Hypertension: Code(s): I10 - Essential (primary) hypertension Status: Acute (4) Diabetes: Qualifiers: Diabetes mellitus type: type 2 Diabetes mellitus senior care insulin use: without exterminator use Diabetes mellitus complication status: with ophthalmic complications Diabetes mellitus complication detail: with cataract Qualified Code(s): E11.36 - Type 2 diabetes mellitus with diabetic cataract Code(s): E11.9 - Type 2 diabetes mellitus without complications Status: Acute (5) SOB (shortness of breath): Code(s): R06.02 - Shortness of breath Status: Acute (6) Leukocytosis: Code(s): D72.829 - Elevated white blood cell count, unspecified Status: Acute Plan An 79-year-old female with PMH [id number] diabetes mellitus, hypertension, hypothyroidism, 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 She reports living alone in a house and only uses a cane when she is out. She reports walking to her mailbox and she felt her right hip give out and she fell hit her right hip right knee and her head. She thinks she lost consciousness transiently after the blunt trauma. She was seen in the ER a few days prior on 01/18/2025 for pain which was already present without any blunt trauma, had x-ray hip right side and pelvis performed without any acute fracture or malalignment. She reports she has had this right hip pain for many weeks now. Of note, she also presented to the ER on 12/26/2024 complaining of chronic chest pain and shortness of breath. At that time her troponins were negative, CTA negative for PE and demonstrating mosaic attenuation in the dependent lungs with subsegmental regions loosen air trapping likely related to small airway disease., also noted moderate intra and extrahepatic biliary ductal dilation. She has also had a Lexiscan stress test on 12/27/2023 which did not feel any infarct or ischemia. CT hip right-side without contrast, head CT, hip and pelvis x-rays, chest x-ray, right ankle x-ray without any acute bony abnormalities or intracranial hemorrhage she was given aspirin 324 mg p.o. x1, morphine 2 mg IV x1, Zofran, Dilaudid 0.5 mg IV x2, Toradol 50 mg IV x1 and subsequently admitted to the medical floor due to her inability to walk. Upon repeat examination the patient complains of uncontrolled pain at the right hip which is radiating down the front of her thigh. She reports her chronic neck pain, hoarse voice, chest pain. Denies any shortness of breath, she was on 1 L nasal cannula for a very short period after she received narcotics. ----- She has point tenderness at the greater trochanter and palpation along the anterior hip. Appears she had greater trochanteric pain syndrome for about a month now but of course due to blunt trauma she has more pain. No acute fractures demonstrated on CT scan. PT OT ordered. Ambulate with assistance. Fall precautions. She has been taking Tylenol at home which has not been helping. Start Tylenol p.r.n., oxycodone p.r.n., Dilaudid p.r.n. Leukocytosis is mild. This is likely reactive. Afebrile. Continue to trend. She has had chronic shortness of breath and occasional cough for many weeks to months now. CTA chest on 12/26/2024: 1. Mosaic attenuation in the dependent lungs with subsegmental regions of more lucent air trapping likely related to small airway disease. No pulmonary embolism or other acute cardiopulmonary disease. 2. Moderate intra and extra hepatic biliary ductal dilation which could be related to prior cholecystectomy but is more prominent than typical. Correlate with liver function tests and if clinically indicated could consider MRCP for further evaluation. She has bibasilar crackles and O2 saturation 88% on room air after receiving narcotics. She is now back on room air and saturating well. Although this could have been due to narcotic administration will consult pulmonology to assist. She is nonsmoker and reports having seen a rest room attendant several years ago around the time she had her 1st thyroid surgery but does not remember what she was diagnosed with. She does have a rescue inhaler prescribed. Quad viral screen on admission negative. BNP on admission only 129. Unlikely to be heart failure. Unclear if this is related to her 4 neck/thyroid surgeries. She denies having acid reflux. Accu-Cheks a.c. HS with low-dose insulin sliding scale. Continue PACKAGE [employer]ER levothyroxine Patient wishes to be full code. Fall precautions. Ambulate with assistance. PT/OT evaluations. Saline lock IV. 01/23/2025 update: Patient is back on room air. Appreciate pulmonology recommendations. At this time, we are waiting for the family arrived final decision. The patient has become verbally cantankerous, does not want to talk as advised by Occupational therapy. She refused physical therapy. At this time discharge the patient to home is not appropriate as she is a fall risk and she presented with a fall and she still has pain and unsteadiness. She does live alone. Proper plan would be to discharge to SNF. Patient reports when her family gets here she will sign out AMA and again she was not amenable to further discussion. Subjective Date/time seen: 01/23/25 16:15 Interval history: Spoke with patient in the morning. She was agreeable to discharge to SNF for rehab, understanding that she is a fall risk. Later in the day be she became verbally cantankerous and said she is refusing SNF and her family is coming to pick her up and she will sign out AMA. At this time we are waiting for the family to arrive for final decision. Attempted to talk to her a 2nd time but she refused to do so. Review of Systems Review of Systems: All systems reviewed & are unremarkable except as noted in HPI and below (Subjective) Exam Const: General: comfortable and no acute distress HENMT: Mouth: Yes moist mucous membranes Eyes: Pupils: Equal, round and reactive pupils present Neck: Neck: supple Resp: Effort & Inspection: normal respiratory effort Other: Bibasilar crackles Cardio: Rate: regular rate Rhythm: regular rhythm GI: Inspection: non-distended Neuro: Cranial nerves: Yes Equal, round and reactive pupils present Extrem: General: no edema Objective Data Vital Signs Vital Signs: Vital Signs - 24 hr 01/22/25 16:34 01/22/25 20:00 01/22/25 20:16 Temperature 97.2 F L 98.0 F Pulse Rate 60 78 78 Respiratory Rate 18 16 Blood Pressure 141/60 H 156/82 H Pulse Oximetry 97 100 Oxygen Delivery 01/22/25 20:16 01/22/25 21:01 01/23/25 00:00 Temperature 98.0 F 97.9 F Pulse Rate 78 78 Respiratory Rate 16 18 Blood Pressure 156/82 H 160/75 H Pulse Oximetry 100 89 L Oxygen Delivery Room Air 01/23/25 04:00 01/23/25 08:00 01/23/25 11:33 Temperature 98.0 F 98.1 F Pulse Rate 97 57 L Respiratory Rate 18 16 Blood Pressure 138/63 137/57 L Pulse Oximetry 92 100 Oxygen Delivery Room Air Intake/Output Intake/Output: Intake & Output 01/20/25 01/21/25 01/22/25 01/23/25 23:59 23:59 23:59 23:59 Intake Total 540 630 Output Total 0 Balance 540 630 Meds/Results Medications: Active Medications Generic Name Dose Route Start Last Admin Trade Name Freq PRN Reason Stop Dose Admin Albuterol 1 puff 01/22/25 11:46 Albuterol Sulfate (*Sp) Aerosol 1 Puff INHALATION Q4H PRN Shortness Of Breath Or Wheezing Calcium Carbonate 600 mg 01/22/25 17:00 01/23/25 09:46 Calcium Carbonate (Tums) 500 Mg (200 Mg Elemental) BY MOUTH 600 mg BID ALINA Administration Dextrose 12.5 gm 01/22/25 13:23 Dextrose 50% 25 Gm/50 Ml Syringe IV PUSH PRN PRN Hypoglycemia Protocol Duloxetine HCl 30 mg 01/22/25 11:50 01/23/25 09:43 Duloxetine Hcl 30 Mg Capsule.Dr PO 30 mg DAILY ALINA Administration Glucose 15 gm 01/22/25 13:23 Glucose Oral Gel 15 Gm Of Glucse In 37.5 Gm Tube PO PRN PRN Hypoglycemia Protocol Dextrose 1,000 mls @ 100 mls/hr 01/22/25 13:23 Dextrose 5% 1,000 Ml IVPB PRN PRN Hypoglycemia Protocol Magnesium Sulfate 4 gm in 100 mls @ 25 mls/hr 01/23/25 16:13 Magnesium Sulf 4 Gm/[id number] IVPB 01/23/25 20:12 ONCE ONE Insulin Aspart 2 - 5 units 01/22/25 17:00 01/23/25 11:54 Insulin Aspart (*Bkc) 100 Units/Ml SUB-Q Not Given TIDWM ALINA Protocol Insulin Aspart 1 - 2 units 01/22/25 21:00 01/22/25 20:16 Insulin Aspart (*Bkc) 100 Units/Ml SUB-Q Not Given HS [facility] Protocol Irbesartan 75 mg 01/22/25 11:50 01/23/25 10:34 Irbesartan 75 Mg Tablet PO Not Given On Hold: 01/23/25 10:13 DAILY ALINA Levothyroxine Sodium 75 mcg 01/22/25 12:00 01/23/25 05:09 Levothyroxine Sodium 75 Mcg Tablet PO 75 mcg DAILY@0630 [facility] Administration Lorazepam 0.5 mg 01/22/25 05:35 Lorazepam (*Crx) 0.5 Mg Tablet PO Q6H PRN Anxiety Lovastatin 40 mg 01/22/25 21:00 01/22/25 20:16 Lovastatin 20 Mg Tablet PO 40 mg QHS ALINA Administration Metoprolol Tartrate 50 mg 01/22/25 12:00 01/23/25 10:35 Metoprolol Tartrate 50 Mg Tab PO Not Given On Hold: 01/23/25 10:13 Q12HR [facility] Morphine Sulfate 2 mg 01/23/25 10:13 Morphine Sulfate (*Crx) 2 Mg/Ml Inj IV PUSH Q4H PRN Pain Rated 7-10 Oxycodone/Acetaminophen 1 tablet 01/22/25 13:19 01/23/25 05:09 Oxycodone/Acetaminophen (*Crx) 5-325 Mg Tablet PO 1 tablet Q4H PRN Administration Pain Rated 4-6 Perflutren Lipid Microsphere 0 ml 01/23/25 08:11 Perflutren Lipid Microspheres 1.5 Ml Vial Diluted To 10 Ml Total Volume IV PUSH 01/26/25 08:11 ONCE PRN adequate visualization Protocol Trazodone HCl 100 mg 01/22/25 11:46 Trazodone Hcl 50 Mg Tablet PO QHS PRN Insomnia Radiology Results: ITS Impressions Ankle X-Ray 01/22/25 08:07 IMPRESSION: 1. No acute osseous abnormality. Chest X-Ray 01/22/25 08:10 IMPRESSION: 1. Interstitial and airspace opacities in the left mid and bilateral lower lung zones which could represent pulmonary edema or pneumonia. Head CT 01/22/25 08:31 IMPRESSION: No evidence for acute intracranial hemorrhage or calvarial fracture. Hip CT 01/22/25 08:32 IMPRESSION: No fracture. Labs Labs: Laboratory Results - last 24 hr 01/22/25 01/22/25 01/23/25 17:39 20:09 05:13 WBC 9.1 RBC 3.83 L Hgb 12.0 Hct 37.8 MCV 98.7 D MCH 31.3 MCHC 31.7 L RDW 12.4 Plt Count 223 MPV 10.6 H Immature Gran % (Auto) 0.6 H Neut % (Auto) 76.6 H Lymph % (Auto) 16.7 L [place] % (Auto) 5.1 Eos % (Auto) 0.7 Baso % (Auto) 0.3 Lymph # (Auto) 1.51 [place] # (Auto) 0.5 Eos # (Auto) 0.1 Baso # (Auto) 0.0 Abs Immat Gran (auto) 0.05 H Absolute Neuts (auto) 7.0 H Absolute Nucleated RBC 0.000 Nucleated RBC % 0.0 Sodium 136 L Potassium 3.9 Chloride 101 Carbon Dioxide 28 Anion Gap 7 BUN 18 H Creatinine 0.58 L Estim Creat Clear Calc 62 Estimated GFR > 60 Glucose 189 H POC Capillary Glucose 124 H 135 H Calcium 9.0 Magnesium 1.0 L C-Reactive Protein 2.5 H NT-Pro-B Natriuret Pep 555 H Procalcitonin 0.0 01/23/25 01/23/25 07:25 11:15 WBC RBC Hgb Hct MCV MCH MCHC RDW Plt Count MPV Immature Gran % (Auto) Neut % (Auto) Lymph % (Auto) [place] % (Auto) Eos % (Auto) Baso % (Auto) Lymph # (Auto) [place] # (Auto) Eos # (Auto) Baso # (Auto) Abs Immat Gran (auto) Absolute Neuts (auto) Absolute Nucleated RBC Nucleated RBC % Sodium Potassium Chloride Carbon Dioxide Anion Gap BUN Creatinine Estim Creat Clear Calc Estimated GFR Glucose POC Capillary Glucose 176 H 133 H Calcium Magnesium C-Reactive Protein NT-Pro-B Natriuret Pep Procalcitonin
[2025-01-23 16:48] VITALS: PULSE 125
[2025-01-23] MEDS: METOPROLOL TARTRATE 50 MG TAB PO (16:48)
[2025-01-23] MEDS: IRBESARTAN 75 MG TABLET PO (16:48)
[2025-01-23] MEDS: MAGNESIUM SULF 4 GM/WATER100ML 4 GM/100 ML BAG IVPB (16:52)
--- NOTE | 2025-01-23 16:59 | PC.NURSE ---
Patient states she is very upset and will not be staying here. Patient states she does not want to go to rehab, does not want to do rehab at home, also will not attend outpatient rehab. Patient states the only help that she needs is her neck rubbed to help with discomfort. MD notified of patients concerns. Daughter has arrived at bedside, RN explained that she is not medically cleared for discharge at this time. RN also concerns for patients health if she is to leave against medical advise to both patient and daughter at bedside. Patient states she does not care and she will be leaving after dinner tonight. Daughter and patient also notified of decreased magnesium level, as well as doctors order to administer magnesium IV. Patient states she will get the Magnesium IV as long as she is here but will not be staying for it to finish, she will be leaving after dinner.
--- NOTE | 2025-01-24 19:30 | PM.DS ---
DS: Admitting Diagnosis Discharge Date 01/23/25 Admitting Diagnosis Fall at home DS: Discharge Diagnosis Discharge Diagnosis (1) Gait instability: Code(s): R26.81 - Unsteadiness on feet Status: Acute DS: Summary Hospital Course Hospital Course: 79-year-old female leaving at medical advice on 01/23/2025. Please see progress note on 01/23/2025 for more details. Attempted to student loan counselor the patient about the risk of leaving before medical treatment has completed and she showed no interest in discussing further, she was verbally cantankerous to myself and the nurse. She understood she was at a fall risk and leaving against medical advice places her at risk for further morbidity and even mortality. Time Spent with Patient Time attestation: Total time spent providing and/or coordinating discharge services: Exam Const: General: uncomfortable HENMT: Mouth: Yes moist mucous membranes Eyes: Pupils: Equal, round and reactive pupils present Neck: Neck: supple Resp: Effort & Inspection: normal respiratory effort Auscultation: clear to auscultation bilaterally Cardio: Rate: regular rate Rhythm: regular rhythm GI: GI Palp: Yes Soft to palpation Neuro: Motor exam (neuro): 5/5 motor strength present throughout Other: Range of motion right hip limited by pain Extrem: General: no edema Discharge Plan Discharge Attending physician on discharge: Sima Frances Consulting providers: Vish Martinez; George Hoover; Sumit Pizano; Ryan Carmona Paul Discharging Clinician: Sima Frances Patient Disposition: Left Against Medical Advice Activity: may shower Diet: as tolerated Patient Language: Chadian Discharge Medications: No Action calcium carbonate [Calcium 600] 600 mg calcium (1,500 mg) tablet 600 mg PO BID acetaminophen 500 mg tablet 1,000 mg PO TID PRN (Reason: jonathan) 7 Days Qty: 42 0RF lidocaine 5 % adhesive patch,medicated 1 patch topical DAILY Qty: 15 0RF Rx Instructions: leave on most painful area for up to 12 hrs oxycodone 5 mg tablet 5 mg PO Q4H PRN (Reason: pain) Qty: 14 0RF alcohol swabs [BD Alcohol Swabs] Pads, Medicated 1 pad topical BID PRN (Reason: diabetes) Qty: 200 0RF levothyroxine 75 mcg capsule 75 mcg PO DAILY Qty: 90 3RF (DME) blood-glucose meter [OneTouch Verio Flex meter] Misc See Rx Instructions .Route Qty: 1 0RF Rx Instructions: Use to check blood sugars daily (DME) lancets [OneTouch Delica Plus Lancet] 33 gauge misc See Rx Instructions .Route Qty: 100 1RF Rx Instructions: Use to check blood sugars daily (DME) OneTouch Verio test strips Strip See Rx Instructions .Route Qty: 100 1RF Rx Instructions: Use to check blood sugars daily (DME) 2-Wheeled Walker See Rx Instructions .Route .MEDSUPPLY Qty: 1 0RF Rx Instructions: Use for transportation and gait instability. metoprolol tartrate 50 mg tablet 50 mg PO Q12H Qty: 180 1RF lovastatin 40 mg tablet 40 mg PO DAILY Qty: 90 1RF irbesartan 75 mg tablet 75 mg PO DAILY Qty: 90 1RF metformin 500 mg tablet extended release 24 hr 500 mg PO BID Qty: 180 1RF baclofen 10 mg tablet 10 mg PO DAILY PRN (Reason: muscle spasm) Qty: 90 1RF duloxetine 30 mg capsule,delayed release(DR/EC) 30 mg PO DAILY Qty: 90 1RF albuterol sulfate [Ventolin HFA] 90 mcg/actuation HFA aerosol inhaler 1 inh inhalation Q4H PRN (Reason: shortness of breath or wheezing) Qty: 8.5 0RF nystatin 100,000 unit/gram ointment 1 applic topical BID Qty: 30 0RF Rx Instructions: Mix with triamcinolone ointment before applying trazodone 100 mg tablet 100 mg PO QHS PRN (Reason: insomnia) Qty: 90 1RF Date of admission: 01/22/25 03:20 Primary Care Provider: Dasha Oden Admitting Provider: Brenda Montesinos Attending physician on admission: Sima Frances Condition: Stable Hospitalist MIPS Heart Failure (Exclusion) Patient has history of Heart Transplant or Left Ventricular Assistive Device?: No IF YES, STOP HERE Heart Failure (Qualifier) Patient has current or prior documentation of LVEF less than or equal to 40%, or mod/servere depressed LVSF?: No IF NO, STOP HERE
== END 2025-01-23 17:40 | disposition left against medical advice (07) ==
LOC: ANHED 01-22 03:31 → ANH3MEDSUR 01-22 03:44
PROVIDERS: Emergency Medicine; Internal Medicine Pulmonary Disease; Admitting Provider Internal Medicine; Emergency Provider Student in an Organized Health Care Education/Training Program; PCP Nurse Practitioner; Visit Provider General Practice
DX: S70.01XA Contusion of right hip, initial encounter (principal); S93.401A Sprain of unspecified ligament of right ankle, initial encounter; S09.90XA Unspecified injury of head, initial encounter; R26.81 Unsteadiness on feet; W19.XXXA Unspecified fall, initial encounter; Z91.81 History of falling; M70.61 Trochanteric bursitis, right hip; R94.31 Abnormal electrocardiogram [ECG] [EKG]; I49.8 Other specified cardiac arrhythmias; I45.2 Bifascicular block; R06.02 Shortness of breath; I10 Essential (primary) hypertension; D72.829 Elevated white blood cell count, unspecified; R93.89 Abnormal findings on diagnostic imaging of other specified body structures; J84.9 Interstitial pulmonary disease, unspecified; E78.5 Hyperlipidemia, unspecified; E11.36 Type 2 diabetes mellitus with diabetic cataract; Z79.84 Long term (current) use of oral hypoglycemic drugs; R49.0 Dysphonia; G89.29 Other chronic pain; M54.2 Cervicalgia; E89.0 Postprocedural hypothyroidism; M81.0 Age-related osteoporosis without current pathological fracture; K21.9 Gastro-esophageal reflux disease without esophagitis; Z90.89 Acquired absence of other organs; Z86.39 Personal history of other endocrine, nutritional and metabolic disease; Z80.0 Family history of malignant neoplasm of digestive organs; Z82.49 Family history of ischemic heart disease and other diseases of the circulatory system
CPT/HCPCS: 36415; 70450; 71046; 73502; 73610; 73700; 80048; 80053; 82948; 83690; 83735; 83880; 84145; 84484; 85025; 85610; 85730; 86140; 87637; 93005; 93306; 96365; 96374; 96375; 96376; 97161; 97166; 99285; A9270; G0378; J1171; J1885; J2270; J2405; J3475

== ENCOUNTER 2025-05-12 14:24 | Emergency (ER) | payer MEDICARE, SELFPAY ==
[2025-05-12] VITALS (10 sets, daily range): BP systolic 168–189; BP diastolic 64–85; PULSE 65–87; RESP 13–20; TEMP 36.6; O2SAT 97–100
--- NOTE | ~2025-05-12 | CT_ITS ---
EXAMINATION: CT soft tissue neck w con DATE: 05/12/2025 18:15 INDICATION: Numbness and swelling. TECHNIQUE: Computed tomography (CT) of the neck was performed with 75 mL Omnipaque-350 intravenous contrast. Automated exposure control and iterative reconstruction technique were employed. The dose-length product was 494.84 mGy-cm. COMPARISON: Neck CT 05/28/2018 FINDINGS: The lungs demonstrate mild atelectasis and mosaic attenuation, likely small airways disease. There are likely changes of ocular lens replacement surgeries. There are no pathologically enlarged lymph nodes. Calcified left hilar lymph nodes are consistent with old granulomatous disease. There is 0% stenosis of the proximal internal carotid arteries relative to normal distal artery lumen diameters. The pharynx is normal. Hyperdense material deep to right true vocal cord may be injected material. There is mild mucosal thickening in the paranasal sinuses. The mastoid air cells are normal. There is severe cervical spondylosis. IMPRESSION: 1. No abnormal mass or pathologically enlarged lymph nodes. Reviewed, dictated and finalized at location E. TIC FABRICATOR
--- OUTSIDE RECORDS SUMMARY | 2025-05-12 16:13 | XMS_ITS | Clinical Summary ---
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 [employer] Gender Identity Not on file Sexual Orientation [...] CDT Plan of Treatment Not on file Insurance [employer] H[employer] MEDICARE PPO Advance Directives For more information, please contact: [phone] * Full Code (Latest Code Status on File) Date Activated Date Inactivated Comments 01/06/2022 2:49 PM 01/08/2022 6:35 PM Care Teams Manufacturer Agent Relationship Specialty Start Date End Date Yessy Alvarez MD [address] [place] [address] [address] [place] [address] PCP - General Family Medicine 09/28/21 Joseph Marshall MD [address] [place] [address] Referring Physician Internal Medicine 04/09/25
--- OUTSIDE RECORDS SUMMARY | 2025-05-12 16:13 | XMS_ITS | Clinical Summary ---
Author Organization [employer] [facility] Address [address] [place] [address] Care Team Providers Care Emergency Registrar Name Role Phone Unavailable Primary Care Provider Unavailabl e Social History Tobacco Use Types Packs/Day Years Used Date Smoking Tobacco: Never Assessed Comments Unknown Sex and Gender Information Value Date Recorded Sex Assigned at Not on file Legal Sex Female 3:07 PM EDT Gender Identity Not on file Sexual Orientation Not on file Plan of Treatment Not on file Medical Devices Not on file Insurance
--- OUTSIDE RECORDS SUMMARY | 2025-05-12 16:13 | XMS_ITS | Clinical Summary ---
Author Organization [facility] Address [address] [address] Phone Care Team Providers Care Spud Driller Name Role Phone Yessy Alvarez MD Primary [...] on file Legal Sex Female 12:46 PM SPECIAL EFFECTS PERSON Gender Identity Not on file Sexual Orientation [...] (Adult) (1 - 1-dose 75+ series) 2018 Medicare Initial AWV [id number] 05/22/2018 Influenza Immunization (#1) 2025 03/12/2017 SARS-COV-2 Immunization ( - season) 2025 Hepatitis B Immunization Aged Out No longer eligible based on patient's age to complete this topic Human Papillomavirus (HPV) Immunization (No Doses Required) Completed Meningococcal Immunization (ACWY) Aged Out No longer eligible based on patient's age to complete this topic Rotavirus Immunization Aged Out No lo nger eligible based on patient's age to complete this topic Insurance MEDICARE C HUMANA Care Teams Spud Driller Relationship Specialty Start Date End Date Yessy Alvarez MD [address] [place] [address] PCP - General Family Medicine 12/31/19
--- OUTSIDE RECORDS SUMMARY | 2025-05-12 16:13 | XMS_ITS | Encounter Summary ---
Author Organization [facility] Address [address] [facility] [place] [address] Care Team Providers Care Retail Consultant Name Role Phone Hola Johnston DO Primary Care Provider [phone] Dasha dOen APRN-GRADUATE ASSISTANT Primary Care Provider [phone] Joseph Marshall APAHSAN-GRADUATE ASSISTANT Primary Care Provider [phone] Encounter Details Date Type Department Care Team (Late Contact Info) Description 01/12/2024 Telephone [facility] - ENT [address] [place] [phone] Annie Ramírez, KAELYN [address] [place] [address] [place] [address] Social History Tobacco Use Types [...] Department Care Team (Late Contact Info) Description 05/28/2025 2:45 PM FIELD SOFTWARE ENGINEER Office Visit [facility] - Ophthalmology [address] [facility], [place] [phone] Charlie Ortega MD [address] [place] [address] [place] [phone] 05/29/2025 2:00 PM FIELD SOFTWARE ENGINEER [facility] [address] [facility], [place] [phone] Keke Andrade PA-C [address] [place], [place] [phone] 06/09/2025 2:45 PM FIELD SOFTWARE ENGINEER Office Visit [facility] - ENT [address] , [facility] [address] [place] [address] Maximo Hall MD [address] [place] [address] [address] DEPT OF OTOLARYNGOLOGY [place], [place] [phone] 06/10/2025 1:00 PM FIELD SOFTWARE ENGINEER Office Visit [facility] - POSTAL WORKER [address], [facility] [address] [place] [address] Payal Richey MD [address] [facility] [address] [place] [address] documented as of this encounter Visit Diagnoses Not on filedocumented in this encounter Care Teams Retail Consultant Relationship Specialty Start Date End Date Hola Johnston DO [address] [place] [address] PCP - General Internal Medicine 10/20/23 11/24/24 Dasha Oden APRN-GRADUATE ASSISTANT [facility] DOMINGO LOCKHART [address] [phone] PCP - General Nurse Practitioner 11/25/24 05/04/25 Joseph Marshall APNP[facility] [address] [place] [address] PCP - General Internal Medicine 05/05/25 documented as of this encounter
--- OUTSIDE RECORDS SUMMARY | 2025-05-12 16:13 | XMS_ITS | Clinical Summary ---
Author Organization [facility] Address [address] [place] [address] Care Team Providers Care Proposal Review Analyst Name Role Phone Joseph Marshall GUILHERME-BEEKEEPER Primary Care Provider [phone] Source Comments [facility] [employer],non-owned Affiliates and Associated Physician Practices is amultiple site organization consisting of ambulatory clinics and hospital sitesin [place], [place], [place] and [place]. This disclosure is being madepursuant to the Care Everywhere program and may not contain all information available regarding this patient. Last updated 18.[facility] Allergies Active Allergy Reactions Criticality Noted Date [...] Encounters Date Type Department Care Team Description 05/07/2025 Telephone [facility] - Rheumatology [address] [place] [address], [address] [place] [address] Group, [facility] Medical Referral 05/07/2025 Transcribe Orders [facility] - Rheumatology [address] [facility], [address] [place] [address] [facility] Medical Age-related osteoporosis without current pathological fracture 04/21/2025 Telephone [facility] - ENT [address], [address] [place] [address] Sonu Morales MD Appointment (Sooner apt) 03/31/2025 Travel 03/28/2025 Transcribe Orders [facility] - Centralized Scheduling [address] [place] [address] Isaiah Sullivan Throat pain ; Other chronic pain; Dysphagia, unspecified type; Dysphonia 02/24/2025 Travel from Last 3 Months Immunizations Immunization Administration [...] Care Team (Late st Contact Info) Description 05/28/2025 2:45 PM DIMENSION STONE QUARRY SUPERVISOR Office Visit [facility] - Ophthalmology [address] [place] [phone] Charlie Ortega MD [address] [place] [address] [place] [phone] 05/29/2025 2:00 PM DIMENSION STONE QUARRY SUPERVISOR Office Visit [facility] - Orthopedics [address] [place] [phone] Keke Andrade PAGemmaC [address] [place] [address] 06/09/2025 2:45 PM DIMENSION STONE QUARRY SUPERVISOR Office Visit [facility] - ENT [address], [address] [place] [address] Maximo Hall MD [address] [facility] [address] [place] [address] 06/10/2025 1:00 PM DIMENSION STONE QUARRY SUPERVISOR Office Visit [facility] - RELOCATION SPECIALIST [address], [address] [place] [address] Payal Richey MD [address] [place] [address] Health Maintenance Due Date Last Done Comments BONE DENSITY TESTING 1943 DTAP/TDAP/TD VACCINES (1 - Tdap) 1962 Respiratory Syncytial Virus (RSV) Vaccine Pt: or over 60 yrs (1 - 1-dose 75+ series) 2018 ZOSTER VACCINE (2 of 2) 02/08/2022 12/14/2021 DEPRESSION SCREENING 05/22/2024 MEDICARE AWV CALENDAR YEAR 2024 COVID-19 VACCINE (2024- season) 2025 04/30/2024, 04/07/2023, 02/25/2022, Additional history exists INFLUENZA [...] this topic Medical Devices Implanted Type Area Brand Marketing Coordinator Device Identifier Shelf Expiration Date Model / Serial / Lot Patch Cv Thk.4mm 9x2cm tx [facility] - [id number] Implanted:Qty: 1 on 11/03/2023 by Sonu Morales MD at [facility] [employer] 04/14/2028 [id number] / [id number] / Insurance [facility] Advance Directives * Full Code (Latest Code Status on File) Date Activated Date Inactivated Comments 11/03/2023 3:02 PM 11/04/2023 3:12 PM Care Teams Proposal Review Analyst Relationship Specialty Start Date End Date Joseph Marshall APNP-BEEKEEPER [address] [place] [address] PCP - General Internal Medicine 05/05/25
--- NOTE | 2025-05-12 16:52 | ECG_ITS ---
Test Date: 2025-05-12 16:57:19 Measurements Intervals Starlight Rate: 76 P: 44 NE: 165 QRS: -44 QRSD: 148 T: 24 QT: 426 QTc: 481 Interpretive Statements SINUS RHYTHM WITH OCCASIONAL SUPRAVENTRICULAR PREMATURE COMPLEXES LEFT AXIS DEVIATION RIGHT BUNDLE BRANCH BLOCK VOLTAGE CRITERIA FOR LVH CANNOT R/O SEPTAL INFARCT, AGE INDETERMINATE BASELINE ARTIFACT- I, II, AVR, AVL, AVF, V1 ABNORMAL ECG Compared to ECG 01/22/2025 00:55:26 Electronically Signed On 05-12-2025 20:14:11 BRUSHER MACHINE by Sumit Pizano D.O.
--- NOTE | 2025-05-12 17:21 | ED.WEAKNESS ---
HPI - Weakness General Chief complaint: Weakness Stated complaint: multiple complaints Time Seen by Provider: 05/12/25 16:46 Source: patient Mode of arrival: EMS Limitations: no limitations History of Present Illness HPI Narrative: This is an 80-year-old female with history of diabetes, laryngeal disorder status post implant placement, hyperlipidemia who presents to the ED for a facial numbness. Patient states that she was seeing her PCP today and noted facial numbness over the last couple days so she was sent here by EMS for further evaluation. She states she has never had these symptoms before. She does note some swelling sensation to her throat. Denies shortness of breath, fevers, chills recent illnesses. She is also noting some left elbow swelling over the last few weeks. Related Data Home Medications ?Medication ?Instructions ?Recorded ?Confirmed ?Last Taken ?Type calcium carbonate (Calcium 600) 600 mg PO BID 07/21/22 05/12/25 01/21/25 History Allergies Allergy/AdvReac Type Severity Reaction Status Date / Time duloxetine (From Cymbalta) Allergy Dizzy Verified 05/12/25 16:51 codeine AdvReac Severe NAUSEA AND Verified 05/12/25 16:51 VOMITING tramadol AdvReac Severe NAUSEA AND Verified 05/12/25 16:51 VOMITING Review of Systems Review of Systems: All systems reviewed & are unremarkable except as noted in HPI and below PMFSH Past Medical History Medical History Hypertension Osteoporosis Diabetes History of blood clots Hx of goiter removed in 22 Thyroid disorder GERD (gastroesophageal reflux disease) Diabetes Arthritis Surgical History Surgical History H/O breast biopsy History of tonsillectomy History of dilatation and curettage History of elbow surgery History of throat surgery History of thyroplasty H/O tooth extraction Hx of cholecystectomy Hx of hysterectomy Hx of thyroidectomy 2019 Hx of cataract surgery 2022 Family History Family History Father Carcinoma of colon Mother Patient's mother is Hypertension Sibling Patient's sister is in good health Other Hypertension Social History Social History Smoking status: Never smoker Alcohol intake: former Substance use: never Substance use type: does not use Lack of Transportation: No Lack of Food: Never True Current Housing: I Have Housing Concerned About Future Housing: No Difficulty Paying Gas/Electric Bills: No Difficulty Paying for Meds: No Currently Unemployed: No Education: High School Diploma/GED Difficulty w/ Childcare or Family Care: No Spiritual care concerns: No Exam Narrative: APPEARANCE: No acute distress, nontoxic, resting in bed EYES: EOMI HEENT: Normocephalic, atraumatic, oropharynx clear, no uvular deviation RESPIRATORY: No respiratory distress Clear to auscultation bilaterally with no rhonchi wheezing or rales. CARDIOVASCULAR: Regular rate and rhythm without murmurs rubs or gallops. ABDOMINAL: Soft, nontender, nondistended, no rebound or guarding MUSCULOSKELETAl: Moves all extremities. No clubbing, cyanosis or edema. NEURO: Awake and alert. Following commands, speech normal, no focal deficits SKIN:: Warm, dry. No rashes lesions or abrasions PSYCHIATRIC: Normal affect/mood, Course Vital Signs Vital signs: Vital Signs Temperature 97.8 F 05/12/25 14:27 Pulse Rate 66 05/12/25 14:27 Respiratory Rate 19 05/12/25 14:27 Blood Pressure 183/67 H 05/12/25 14:27 Pulse Oximetry 100 05/12/25 14:27 Oxygen Delivery Room Air 05/12/25 14:27 Temperature 97.8 F 05/12/25 14:27 Pulse Rate 65 05/12/25 19:05 Respiratory Rate 19 05/12/25 19:05 Blood Pressure 168/81 H 05/12/25 19:05 Pulse Oximetry 100 05/12/25 19:05 Oxygen Delivery Room Air 05/12/25 16:49 [facility] Narrative Medical decision making narrative: 80-year-old female Presenting for bilateral facial numbness, left elbow swelling. On initial evaluation patient was in no acute distress afebrile, hemodynamic stable. Differentials include but are not limited to: Electrolyte abnormality, peripheral neuropathy, unlikely CVA, bursitis, likely septic bursitis or septic arthritis Notable exam findings: No focal deficits, swelling over the left olecranon, no tenderness in the joint capsule I personally reviewed the patient's lab result. Notable lab findings: CBC and CMP without significant abnormalities. UA with pyuria. CT soft tissue neck showed no acute process. I personally reviewed the patient's EKGs: Sinus rhythm with occasional PACs, LAD, RBBB, nonspecific t wave change, no ST changes Unclear what the source of the patient's numbness to her face is, very unlikely to be a stroke. Could be related to the patient's thyroplasty so she was advised follow-up with her surgeon in the next few weeks for re-evaluation. She was also advised to continue follow-up with her PCP. Her left elbow is likely consistent with a aseptic bursitis, she was wrapped with Rome wrap in educated on rice therapy. Patient was agreeable to this plan. Given strict return precautions. Differential Diagnosis Differential Diagnosis: Electrolyte abnormality, peripheral neuropathy, unlikely CVA, bursitis, likely septic bursitis or septic arthritis Lab Data 05/12/25 17:33 05/12/25 17:33 Labs: Lab Results 05/12/25 Range/Units 17:33 WBC 10.3 H (4.5-10.0) K/mm3 RBC 4.12 L (4.2-5.4) M/mm3 Hgb 12.8 (12.0-15.0) g/dL Hct 38.5 (37.0-47.0) % MCV 93.4 (80-100) fl MCH 31.1 (26-34) pg MCHC 33.2 (32-36) g/dl RDW 11.6 (11.5-14.5) % Plt Count 248 (150-375) k/mm3 MPV 9.8 (7.4-10.4) fl Immature Gran % (Auto) 0.5 (0-0.5) % Neut % (Auto) 58.1 (45.5-73.1) % Lymph % (Auto) 35.4 (18.3-44.2) % Knox % (Auto) 4.5 (2.6-8.5) % Eos % (Auto) 0.9 (0-4.4) % Baso % (Auto) 0.6 (0.2-1.2) % Lymph # (Auto) 3.64 H (0.9-3.2) K/mm3 Knox # (Auto) 0.5 (0.1-0.6) K/mm3 Eos # (Auto) 0.1 (0-0.3) K/mm3 Baso # (Auto) 0.1 (0.0-0.1) K/mm3 Abs Immat Gran (auto) 0.05 H (0.00-0.031) K/mm3 Absolute Neuts (auto) 6.0 (1.3-6.7) K/mm3 Absolute Nucleated RBC 0.000 (0.0-0.012) K/mm3 Nucleated RBC % 0.0 (0.0-0.2) % Sodium 139 (137-145) mmol/L Potassium 3.6 (3.4-5.0) mmol/L Chloride 105 (98-107) mmol/L Carbon Dioxide 25 (22-30) mmol/L Anion Gap 9 (4-12) mmol/L BUN 15 (7-17) mg/dL Creatinine 0.60 L (0.7-1.0) mg/dL Estim Creat Clear Calc 54 ml/min Estimated GFR > 60 (59 - ) Glucose 155 H (65-110) mg/dL Calcium 10.0 (8.4-10.2) mg/dL Total Bilirubin 0.4 (0.2-1.3) mg/dL AST 24 (14-36) U/L ALT 18 (6-35) U/L Alkaline Phosphatase 59 (38-126) U/L Troponin I < 0.012 (0.000-0.034) ng/mL Total Protein 7.4 (6.3-8.2) g/dL Albumin 4.3 (3.5-5.1) g/dL Urine Color Yellow (Yellow) Urine Appearance Cloudy H (Clear) Urine pH 8.5 (5.0-9.0) Ur Specific [place] 1.016 (1.001-1.035) Urine Protein Negative (Negative) mg/dL Urine Glucose (UA) Negative (Negative) mg/dL Urine Ketones Trace H (Negative) mg/dL Ur Blood (Man) Negative (Negative) Urine Nitrate Negative (Negative) Urine Bilirubin Negative (Negative) Urine Urobilinogen 0.2 (<2.0) mg/dL Leukocyte Esterase Rfl 2+ H (Negative) ANURAG/UL Urine RBC 0-2 (0-2) /hpf Urine WBC 21-50 H (0-3) /hpf Ur Squamous Epith Cells None seen (Few) /hpf Urine Bacteria None seen /hpf Urine Casts 0-2 Imaging Data Radiologist's impression: ITS Impressions Soft Tissue Neck CT 05/12/25 18:18 IMPRESSION: 1. No abnormal mass or pathologically enlarged lymph nodes. Discharge Plan Discharge Clinical Impression: Facial numbness, Breast pain, left Bursitis of left elbow Qualifiers: Elbow bursitis location: olecranon bursitis Qualified Code(s): M70.22 - Olecranon bursitis, left elbow Back pain, thoracic Qualifiers: Chronicity: acute Back pain laterality: bilateral Qualified Code(s): M54.6 - Pain in thoracic spine Patient Disposition: Home Condition: Stable Instructions: Antibiotic Form, Elbow Bursitis (ED) Additional Instructions: Workup was reassuring. It is unclear with source of your numbness to her face is but you should follow-up with your surgeon regarding this. Your left elbow has a bursitis which should resolve with some pressure with a new Rome wrap. You may take Tylenol and ibuprofen for the pain. Follow-up with your PCP in the next week for re-evaluation. Return to ED for any new worsening symptoms. Patient Language: Salvadorean Prescriptions: No Action calcium carbonate [Calcium 600] 600 mg calcium (1,500 mg) tablet 600 mg PO BID methocarbamol 500 mg tablet 500 mg PO TID PRN (Reason: muscle spasm) Qty: 45 0RF nystatin 100,000 unit/gram powder 1 applic topical TID PRN (Reason: yeast infection) Qty: 60 2RF acetaminophen 500 mg tablet 1,000 mg PO TID PRN (Reason: jonathan) 7 Days Qty: 42 0RF (DME) blood-glucose meter [OneTouch Verio Flex meter] Misc See Rx Instructions .Route Qty: 1 0RF Rx Instructions: Use to check blood sugars daily (DME) 2-Wheeled Walker See Rx Instructions .Route .MEDSUPPLY Qty: 1 0RF Rx Instructions: Use for transportation and gait instability. trazodone 100 mg tablet 100 mg PO QHS PRN (Reason: insomnia) Qty: 90 1RF levothyroxine 75 mcg capsule 75 mcg PO DAILY Qty: 30 0RF (DME) Wheelchair See Rx Instructions .Route .MEDSUPPLY Qty: 1 0RF Rx Instructions: As directed lovastatin 40 mg tablet 40 mg PO DAILY Qty: 90 1RF irbesartan 75 mg tablet 75 mg PO DAILY Qty: 90 1RF metoprolol tartrate 50 mg tablet 50 mg PO Q12H Qty: 180 1RF metformin 500 mg tablet extended release 24 hr 500 mg PO BID Qty: 180 1RF (DME) lancets [OneTouch Delica Plus Lancet] 33 gauge misc See Rx Instructions .Route Qty: 100 1RF Rx Instructions: Use to check blood sugars daily (DME) OneTouch Verio test strips Strip See Rx Instructions .Route Qty: 100 1RF Rx Instructions: Use to check blood sugars daily gabapentin 300 mg capsule 300 mg PO TID Qty: 270 2RF Follow-up/Referrals: Joseph Marshall APRN [Primary Care Provider, Internal Medicine]
[2025-05-12 17:41] LABS: Hematocrit 38.5 % (37.0-47.0); Hemoglobin 12.8 g/dL (12.0-15.0); Immature Granulocyte Percent A 0.5 % (0-0.5); Lymphocytes Absolute Auto 3.64 K/mm3 (0.9-3.2); Mean Corpuscular HGB Conc 33.2 g/dl (32-36); Mean Corpuscular Hemoglobin 31.1 pg (26-34); Mean Corpuscular Volume 93.4 fl (80-100); Nucleated Red Blood Cells Absolute Auto 0.000 K/mm3 (0.0-0.012); Nucleated Red Blood Cells Perc 0.0 % (0.0-0.2); Platelet Count Result 248 k/mm3 (150-375); Red Blood Count 4.12 M/mm3 (4.2-5.4); White Blood Count 10.3 K/mm3 (4.5-10.0)
--- OUTSIDE RECORDS SUMMARY | 2025-05-12 17:43 | XMS_ITS | Clinical Summary ---
Author Organization [facility] Address [address] [address] Phone Care Team Providers Care Refrigerator Tester Name Role Phone Yessy Alvarez MD Primary [...] on file Legal Sex Female 12:46 PM PLATINUM SMITH Gender Identity Not on file Sexual Orientation [...] topic Insurance MEDICARE C HUMANA Care Teams Refrigerator Tester Relationship Specialty Start Date End Date Yessy Alvarez MD [address] [place] [address] PCP - General Family Medicine 12/31/19
--- OUTSIDE RECORDS SUMMARY | 2025-05-12 17:43 | XMS_ITS | Clinical Summary ---
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 Dysphonia 06/22/2019 Depressive [...] on file Legal Sex Female 12:31 PM BREAKER TENDER Gender Identity Not on file Sexual Orientation [...] Advance Directives For more information, please contact: [phone] * Full Code (Latest Code Status on File) Date Activated Date Inactivated Comments 01/06/2022 2:49 PM 01/08/2022 6:35 PM Care Teams Gang Leader Relationship Specialty Start Date End Date Yessy Alvarez MD [address] [place] [address] [address] [place] [address] PCP - General Family Medicine 09/28/21 Joseph Marshall MD [address] [place] [address] Referring Physician Internal Medicine 04/09/25
--- OUTSIDE RECORDS SUMMARY | 2025-05-12 17:43 | XMS_ITS | Clinical Summary ---
Author Organization [facility] Address [address] [place] [address] Care Team Providers Care Sales Representative Cash Registers Name Role Phone Joseph Marshall GUILHERME-COMPLAINT MANAGER Primary Care Provider [phone] Source Comments [facility],non-owned Affiliates and Associated Physician Practices is amultiple site organization consisting of ambulatory clinics and hospital sitesin [place], [place], [place]. This disclosure is being madepursuant to the Care Everywhere program and may not contain all information available regarding this patient. Last updated 18.[facility] Allergies Active Allergy Reactions Criticality Noted Date [...] Type Department Care Team Description 05/07/2025 Telephone [facility] - Rheumatology [address] [place] [address], [address] [place] [address] Group, [facility] Medical Referral 05/07/2025 Transcribe Orders [facility] - Rheumatology [address] [facility], [address] [place] [address] [facility] Medical Age-related osteoporosis without current pathological fracture 04/21/[address] [facility] - ENT [address] [place] [address] Sonu Morales MD Appointment (Sooner apt) 03/31/2025 Travel 03/28/[address] [facility] - Centralized Scheduling [address] [place] [address] Isaiah Sullivan Throat pain ; [...] st Contact Info) Description 05/28/2025 2:45 PM SECURITY PATROL OFFICER Office Visit [facility] - Ophthalmology [address] [place] [phone] Charlie Ortega MD [address] [place] [address] [place] [phone] 05/29/2025 2:00 PM SECURITY PATROL OFFICER Office Visit [facility] - Orthopedics [address] [place] [phone] Keke Andrade PAGemmaC [address] [place] [address] 06/09/2025 2:45 PM SECURITY PATROL OFFICER Office Visit [facility] - ENT [address] [place] [address] Maximo Hall MD [address] [facility] [address] [place] [address] 06/10/2025 1:00 PM SECURITY PATROL OFFICER Office Visit [facility] - AIRWAY TRAFFIC CONTROLLER [address] [place] [address] Payal Richey MD [address] [place] [address] Health Maintenance Due Date Last [...] this topic Medical Devices Implanted Type Area Mill Labor Supervisor Device Identifier Shelf Expiration Date Model / Serial / Lot Patch Cv Thk.4mm 9x2[facility] [id number] Implanted:Qty: 1 on 11/03/2023 by Sonu Morales MD at [facility] [employer] 04/14/2028 [id number] / [id number] / Insurance [facility] Advance Directives * Full Code (Latest Code Status on File) Date Activated Date Inactivated Comments 11/03/2023 3:02 PM 11/04/2023 3:12 PM Care Teams Sales Representative Cash Registers Relationship Specialty Start Date End Date Joseph Marshall APNP-COMPLAINT MANAGER [address] [place] [address] PCP - General Internal Medicine 05/05/25
--- OUTSIDE RECORDS SUMMARY | 2025-05-12 17:43 | XMS_ITS | Clinical Summary ---
Author Organization [facility] Address [address] [place] [address] Care Team Providers Care Small Package And Bundle Sorter Clerk Name Role Phone Unavailable Primary Care Provider [...]
--- OUTSIDE RECORDS SUMMARY | 2025-05-12 17:43 | XMS_ITS | Encounter Summary ---
Author Organization [facility] Address [address] [facility] [place] [address] Care Team Providers Care Accounts Specialist Name Role Phone Hola Johnston DO Primary Care Provider [phone] Dasha Oden APRN-PERFORATOR Primary Care Provider [phone] Joseph Marshall APAHSAN-PERFORATOR Primary Care Provider [phone] Encounter Details Date Type Department Care Team (Late Contact Info) Description 01/12/2024 Telephone [facility] - ENT [address] [place] [phone] Annie Ramírez, KAELYN [address] [place] [address] [place] [address] Social History Tobacco Use Types [...] (Late Contact Info) Description 05/28/2025 2:45 PM J2EE CONSULTANT Office Visit [facility] - Ophthalmology [address] [facility], [place] [phone] Charlie Ortega MD [address] [place] [address] [place] [phone] 05/29/2025 2:00 PM J2EE CONSULTANT [facility]opedics [address] [facility], [place] [phone] Keke Andrade PA-C [address] [place], [place] [id number] 06/09/2025 2:45 PM J2EE CONSULTANT Office Visit [facility] - ENT [address] , [facility] [address] [place] [address] Maximo Hall MD [address] [place] [address] [address] DEPT OF OTOLARYNGOLOGY [place], [place] [id number] 06/10/2025 1:00 PM J2EE CONSULTANT Office Visit [facility] - HUMAN FACTORS SPECIALIST [address], [facility] [address] [place] [address] Payal Richey MD [address] [facility] [address] [place] [address] documented as of this encounter Visit Diagnoses Not on filedocumented in this encounter Care Teams Accounts Specialist Relationship Specialty Start Date End Date Hola Johnston DO [address] [place] [id number] PCP - General Internal Medicine 10/20/23 11/24/24 Dasha Oden APRN-PERFORATOR [facility] DOMINGO LOCKHART [address] [phone] PCP - General Nurse Practitioner 11/25/24 05/04/25 Joseph Marshall APNP-[facility] [address] [place] [address] PCP - General Internal Medicine 05/05/25 documented as of this encounter
[2025-05-12 17:45] LABS: Add Urine Microscopic? YES; Appearance Urine Cloudy (Clear); Glucose Urine UA Negative (Negative); Leukocyte Esterase Ur 2+ LEU/UL (Negative); Nitrate Urine Negative (Negative); Non Pathogenic Casts 0-2; Specific Grav Ur 1.016 (1.001-1.035)
[2025-05-12 17:57] LABS: Alanine Aminotransferase 18 U/L (6-35); Albumin Level 4.3 g/dL (3.5-5.1); Alkaline Phosphatase 59 U/L (38-126); Anion Gap 9 mmol/L (4-12); Aspartate Amino Transferase 24 U/L (14-36); Bilirubin,Total 0.4 mg/dL (0.2-1.3); Blood Urea Nitrogen 15 mg/dL (7-17); Calcium 10.0 mg/dL (8.4-10.2); Carbon Dioxide 25 mmol/L (22-30); Chloride 105 mmol/L (98-107); Estimated CRCL calculation 54 ml/min; Estimated Glomerular Filt Rate > 60; Glucose 155 mg/dL (65-110); Potassium 3.6 mmol/L (3.4-5.0); Sodium 139 mmol/L (137-145); Total Protein 7.4 g/dL (6.3-8.2)
[2025-05-12 18:04] LABS: Troponin I < 0.012 ng/mL (0.000-0.034)
[2025-05-12] MEDS: KETOROLAC 15 MG/ML VIAL (*BKC) IV PUSH (18:44)
== END 2025-05-12 19:12 | disposition home or self-care (01) ==
PROVIDERS: Emergency Provider Student in an Organized Health Care Education/Training Program; PCP Nurse Practitioner
DX: R20.0 Anesthesia of skin (principal); M70.22 Olecranon bursitis, left elbow; M54.6 Pain in thoracic spine; N64.4 Mastodynia; R82.998 Other abnormal findings in urine; I10 Essential (primary) hypertension; E11.9 Type 2 diabetes mellitus without complications; E78.5 Hyperlipidemia, unspecified; E89.0 Postprocedural hypothyroidism; K21.9 Gastro-esophageal reflux disease without esophagitis; M81.0 Age-related osteoporosis without current pathological fracture; M19.90 Unspecified osteoarthritis, unspecified site; Z90.49 Acquired absence of other specified parts of digestive tract; Z90.710 Acquired absence of both cervix and uterus; Z98.49 Cataract extraction status, unspecified eye; Z79.84 Long term (current) use of oral hypoglycemic drugs; Z79.899 Other long term (current) drug therapy
CPT/HCPCS: 36415; 70491; 80053; 81001; 84484; 85025; 87086; 93005; 96374; 99284; J1885; Q9967